=== PATIENT | female | born 1965 | race Caucasian/White ===

== ENCOUNTER → 2017-10-22 08:12 | Outpatient (CLI) | payer OTHER, SELFPAY ==
--- NOTE | 2017-10-22 08:15 | BI_ITS ---
MAMMOGRAPHY - BILATERAL SCREENING REASON FOR EXAM: Female, 52 years old. Routine annual screening examination. PERTINENT HISTORY: Non-contributory. TECHNIQUE: Digital bilateral breast mckayla (3D mammographic acquisition) in the CC and MLO projections. 2-D mediolateral oblique (MLO) and craniocaudad (CC) views of both breasts were obtained. CAD: Full Field Digital Mammography with Computer Added Detection was performed. COMPARISON: No comparison mammograms available at this time. If any prior films become available, an addendum to this report can be generated. FINDINGS: Breast Composition: The breasts are heterogeneously dense, which may obscure small masses. There are no dominant masses or suspicious calcifications. No other significant abnormalities are identified. BI/SCREENING MAMM (CAD), BILAT IMPRESSION: Negative screening mammogram. Yearly followup mammogram recommended. (A) ASSESSMENT CATEGORY: BIRADS Category 1: Negative. A letter regarding these results will be sent to the patient by the facility within 30 days. Approximately 10% of breast cancers are not detected by mammography. A normal mammogram should not delay biopsy of a clinically suspicious abnormality. [id number] Electronically Signed: Ronnell Perea MD at 13:57 EDT Tel [phone], Service support ,
== END ==
PROVIDERS: Family Provider Family Medicine; PCP Family Medicine; Visit Provider Family Medicine
DX: Z12.31 Encounter for screening mammogram for malignant neoplasm of breast (principal)
CPT/HCPCS: 77063; 77067

== ENCOUNTER 2018-05-07 16:31 | Emergency (ER) | payer OTHER, SELFPAY ==
[2018-05-07 16:32] VITALS: BP 163/107; PULSE 127; RESP 20; TEMP 36.9; O2SAT 100; BMI 24.8
[2018-05-07] MEDS: LORazepam 1 MG Tablet PO (17:20)
[2018-05-07] MEDS: Metoclopramide 10 MG/2 ML Vial 5 MG IV (17:24)
[2018-05-07] MEDS: DiphenhydrAMINE 50 MG/ML Syringe 25 MG IV (17:25)
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
[2018-05-07 18:05] VITALS: BP 143/104; PULSE 90; RESP 15; O2SAT 98
--- NOTE | 2018-05-07 19:23 | ED.DEP ---
ED Disposition - Plan for ED Patient: Chief Complaint: Anxiety Instructions: ED Panic Attack Prescriptions: hydrOXYzine pamoate capsule [Vistaril] 25 mg PO TID PRN PRN #20 capsule PRN Reason: Anxiety Referrals: Moisés Gomez DO [Primary Care Provider] -
[2018-05-07] MEDS: Ketorolac 30 MG/ML Syringe IV (19:27)
[2018-05-07 19:33] VITALS: BP 164/102; PULSE 100; RESP 15; O2SAT 98
== END 2018-05-07 19:34 | disposition home or self-care (01) ==
LOC: ED 16:59
PROVIDERS: Emergency Provider Emergency Medicine; Family Provider Family Medicine; PCP Family Medicine
DX: F41.9 Anxiety disorder, unspecified (principal); G43.909 Migraine, unspecified, not intractable, without status migrainosus; I10 Essential (primary) hypertension
CPT/HCPCS: 99284; A4216

== ENCOUNTER 2018-08-14 06:38 | Day surgery (SDC) | payer OTHER, SELFPAY ==
[2018-08-14 07:15] VITALS: BP 174/89; PULSE 105; RESP 18; TEMP 37.1; O2SAT 100; BMI 24.1
--- NOTE | 2018-08-14 07:44 | HP.PCM_ITS ---
History of Present Illness Date of Admission: 08/14/18 The patient is a 53 year old F present for screening for colon cancer. denies previous colonoscopy, +BM daily or everyother day mostly, occ. Q 3days, no blood, denies abd pain/n/v. denies immediate FH of colon cancer- 1st cousin on mothers side dx at age 55. Past Medical/Surgical History - Planned Operation Planned Operative Procedure/s: cscope open access Date of Operative Procedure: 08/14/18 Permit Signed: No S.O.S: No Is This Patient Having a Total Joint: No - Previous Hospitalizations/Surgeries HX Hospitalizations: No HX of Surgeries: appendectomy. hysterectomy. gallbladder. kidney stones. 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 Hx Heart Attack: No Hx Congestive Heart Failure: No Hx Rheumatic Fever: No Hx Hypertension: Yes - controlled with med Hx Internal Defibrillator: No Hx Pacemaker: No Hx Cardiac Catheterization: No Hx Cardiac Surgery/Stents/Etc.: No Hx Stress Test: Yes - stress echo and echo 2009 HX Edema: No Hx Pain in Legs when Walking/Leg Cramps: Yes - d/t back pain - Respiratory Chronic Cough: No HX of Shortness of Breath: Yes - sob with 2 flights of stairs at times Hoarseness: No Hx Chronic Obstructive Pulmonary Disease (COPD): No Hx Asthma: No Hx Emphysema: No Hx Sleep Apnea: No Hx Oxygen Use at Home: No Hx Respiratory Tract Infection/Cold (presently): No Do You Snore Loudly (louder than talking or can be heard): No Do You Often Feel Tired/ Fatigued/ Sleepy Dring Daytime?: No Has Anyone Observed You Stop Breathing During Sleep?: No Result (for STOP score): Negative Hx Smoking: Yes - quit 12 yrs ago/ 1/2 ppd for 8-10 yrs Smoking Status: Former smoker - Gastrointestinal Hx Gastroesophageal Reflux: No - occ heartburn Hx Gastrointestinal Disorders: No Hx Gastrointestinal Bleed: No Hx Ulcer: No Hx Hiatal Hernia: No Difficulty Chewing/Swallowing: No Recent Onset of Swallowing Problems: No Special diet followed at home: No Hx Unplanned Weight Loss of 20#: No HX Unplanned Weight Gain of 20#: No - Neurological Hx Seizures: No HX Syncope/Blackout Spells/Unconsciousness: Yes - syncope prior to bp pill Hx CVA/Stroke: No Hx Transient Ischemic Attacks (TIA): No Hx Multiple Sclerosis: No Hx Parkinson's Disease: No Hx Head/Neck Injury: No Hx Headaches: Yes Hx Back Injury/Pain: Yes - lumbar laminectomy/continues with pain Recent Onset of Speech Difficulty: No Restless Legs: Yes Does patient have nerve stimulator: No Patient instructed to have device shut off: No Rep notified?: No - Blood Disorder Hx Leukemia: No Bleeding Tendencies: No - . Hx Deep Vein Thrombosis: No Hx High Cholesterol: No Blood Transmitted Disease: No Hx Hepatitis: No Hx Cirrhosis: No Hx Anemia: No Hx Blood Disorders: No - Reproduction Is Patient Lactating: No Hx Hysterectomy: Yes Hx Tubal Ligation: No Are You Post Menopause: No - Genitourinary Hx Renal Disease: No - Musculoskeletal Hx Arthritis: Yes - back Hx Rheumatoid Arthritis: No Hx Gout: No Recent Onset of an Orthopedic Problem: No - Endocrine Hx Diabetes: No Thyroid Disease: No Hx Steroid Therapy: No - Psycho/Social Hx Substance Use: No Hx Alcohol Use: Yes - occ Hx Anxiety: Yes - prn med Hx Depression: No Mental Illness: No Hx Dementia: No - Miscellaneous Hx Cancer: No Recent Exposure to Contagious Disease: No Active MRSA: No Hx of C-Diff: No Any Loose Teeth: No Allergies Penicillins Allergy (Verified 08/14/18 07:15) Rash - Discharge Is Pt Admitted From a Care Home, or a Correction: No Who Could Help: family After D/C, Where Do you Plan to Go: Return Home - Physical Exam General: Alert, Oriented x3, Cooperative, No apparent distress HEENT: Atraumatic Lungs: Normal air movement Cardiovascular: Regular rate Abdomen: Soft, Non Tender, Non-Distended Extremities: No clubbing, No cyanosis, No edema Neurological: Cranial nerves II-XII grossly intact Psych/Mental Status: Normal Affect Vital Signs Temp Pulse Resp BP Pulse Ox 98.8 F 105 H 18 174/89 H 100 08/14/18 07:15 08/14/18 07:15 08/14/18 07:15 08/14/18 07:15 08/14/18 07:15 Oxygen Delivery Method Room Air Weight: 136 lb 7.458 oz Body Mass Index (BMI) 24.1 Assessment/Plan 53 y/o F for screening for colon cancer Surgery Risks - Colonoscopy I discussed with the patient the risks of the procedure: Yes Risks Include but are not Limited To: Risks include but are not limited to: Bleeding, perforation requiring further surgery, inability to complete colonoscopy requiring barium enema. Pt and had no further questions.
[2018-08-14 08:31] VITALS: BP 110/77; BP 174/89; PULSE 78; RESP 16; TEMP 36.9; O2SAT 97
--- NOTE | 2018-08-14 08:32 | OP.ENDO_ITS ---
Patient Name: Anjana Rubi Procedure Date: 08/14/2018 7:41 AM Date of : 1965 Age: 53 Procedure: Colonoscopy Indications: Screening for colorectal malignant neoplasm Providers: Dorothy Oakes MD Medicines: Monitored Anesthesia Care Patient Profile: This is a 53 year old female. Last Colonoscopy: none. The patient's first colonoscopy is today. Complications: No immediate complications. Procedure: Pre-Anesthesia Assessment: - Prior to the procedure, a History and Physical was performed, and patient medications and allergies were reviewed. The patient's tolerance of previous anesthesia was also reviewed. The risks and benefits of the procedure and the sedation options and risks were discussed with the patient. All questions were answered, and informed consent was obtained. Prior Anticoagulants: The patient has taken no previous anticoagulant or antiplatelet agents. ASA Grade Assessment: II - A patient with mild systemic disease. After reviewing the risks and benefits, the patient was deemed in satisfactory condition to undergo the procedure. After I obtained informed consent, the scope was passed under direct vision. Throughout the procedure, the patient's blood pressure, pulse, and oxygen saturations were monitored continuously. The Colonoscope was introduced through the anus and advanced to the cecum, identified by the appendiceal orifice, IC valve and transillumination. The colonoscopy was performed without difficulty. The patient tolerated the procedure well. The quality of the bowel preparation was good. Scope In: 8:02:48 AM Scope Withdrawal Time 0 hours 10 minutes 54 seconds Scope Out: 8:27:16 AM Total Procedure Duration Time 0 hours 24 minutes 28 seconds Findings: The perianal and digital rectal examinations were normal. The entire examined colon appeared normal on direct and retroflexion views. Impression: - The entire examined colon is normal on direct and retroflexion views. - No specimens collected. Recommendation: - Discharge patient to home. - Resume previous diet. - Continue present medications. - Repeat colonoscopy in 10 years for screening purposes. Procedure Code(s): --- Professional --- G0121, Colorectal cancer screening; colonoscopy on individual not meeting criteria for high risk Diagnosis Code(s): --- Professional --- Z12.11, Encounter for screening for malignant neoplasm of colon CPT copyright 2017 [employer]. All rights reserved. The codes documented in this report are preliminary and upon hcc coders review may be revised to meet current compliance requirements. MD Dorothy Davis MD 08/14/2018 8:31:20 AM This report has been signed electronically. Number of Addenda: 0 Note Initiated On: 08/14/2018 7:41 AM
[2018-08-14 08:35] VITALS: BP 110/78; BP 174/89; PULSE 78; RESP 16; O2SAT 97
[2018-08-14 08:40] VITALS: BP 113/83; BP 174/89; PULSE 75; RESP 16; O2SAT 99
[2018-08-14 08:45] VITALS: BP 117/81; BP 174/89; PULSE 72; RESP 16; TEMP 36.8; O2SAT 97
[2018-08-14 08:56] VITALS: BP 174/89
== END 2018-08-14 09:17 | disposition home or self-care (01) ==
LOC: EN 06:39 → AC 06:40
PROVIDERS: Family Provider Family Medicine; PCP Family Medicine; Referring Provider Surgery; Visit Provider Surgery
PROC: 0DJD8ZZ Inspection of Lower Intestinal Tract, Via Natural or Artificial Opening Endoscopic (ICD-10-PCS; CPT 45378; principal; 2018-08-14 07:55)
DX: Z12.11 Encounter for screening for malignant neoplasm of colon (principal); I10 Essential (primary) hypertension; Z87.891 Personal history of nicotine dependence
CPT/HCPCS: 45378; J7120; J2405

== ENCOUNTER 2018-11-14 11:24 | Emergency (ER) | payer OTHER, SELFPAY ==
[2018-11-14 11:24] VITALS: BP 158/84; PULSE 105; RESP 16; TEMP 36.9; O2SAT 98; BMI 30.4
[2018-11-14 11:27] VITALS: O2SAT 98
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
[2018-11-14] MEDS: 0.9% Normal Saline 1,000 ML 1000 ML IV (11:49)
[2018-11-14] MEDS: Morphine 4 MG/ML Syringe IV (11:49)
[2018-11-14] MEDS: Ondansetron 4 MG/2 ML Vial IV (11:49)
[2018-11-14 12:07] LABS: Absolute Lymphocyte Count 1.66 X10^3/ul (0.83-4.51); Absolute Neutrophil Count 4.6 X10^3/uL (2.0-7.7); Basophil# 0.03 X10^3/uL; Basophil% 0.4 % (0-1); Eosinophils% 1.4 % (0-5); Hematocrit 39.9 % (37-47); Hemoglobin 13.8 g/dl (12.0-15.0); Lymphocyte # 1.66 X10^3/ul (4.0); Lymphocyte % 23.6 % (19-41); Mean Corp Hgb Conc 34.6 g/gl (32-36); Mean Corpuscular Hgb 30.7 pg (27.0-32.0); Mean Corpuscular Volume 88.7 fL (81-99); Mean Platelet Vol. 9.3 fl (6.2-12.0); Monocyte# 0.64 X10^3/uL; Monocyte% 9.1 % (0-10); Neutrophil # 4.57 X10^3/uL (2.7-7.7); Neutrophil % 65.2 % (47-70); Platelet Count 248 K/mm3 (150-450); RBC Distribution Width CV 12.3 % (11.6-14.6); RBC Distribution Width SD 39.2 fl (35.1-43.9)
[2018-11-14 12:14] LABS: POSITIVE COUNT NO; POSITIVE DIFFERENTIAL NO; POSITIVE MORPHOLOGY NO
[2018-11-14 12:23] LABS: ALB/GLOB Ratio 1.1 RATIO (0.9-2.4); AST(SGOT) 25 U/L (15-37); Alanine Aminotransfer ALT/SGPT 21 U/L (13-56); Albumin, Serum 3.8 g/dL (3.2-5.0); Alkaline Phosphatase 57 U/L (45-117); Anion Gap 10 (5-15); BUN 15 mg/dL (7-18); BUN/Creat Ratio 20.7 RATIO (10-20); Calcium,Total 9.4 mg/dL (8.5-10.1); Chloride 105 mmol/L (98-107); Creatinine, Serum 0.73 mg/dL (0.55-1.02); EST Glomerular Filtration Rate 89 mL/min (>60); Est Glom Filt Rate - Afr Amer 108 mL/min (>60); Estimated Creatinine Clearance 73.72 ml/min; Globulin 3.4 g/dL (2.2-4.2); Glucose 108 mg/dL (74-106); Potassium 3.4 mmol/L (3.5-5.1); Protein, Total 7.2 g/dL (6.4-8.2); Sodium Level 140 mmol/L (136-145)
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
[2018-11-14 13:24] VITALS: BP 133/78; PULSE 77; RESP 16; O2SAT 100
[2018-11-14] MEDS: HYDROcodone Bitartrate/Apap 5/325 Tablet PO (13:51)
== END 2018-11-14 13:54 | disposition home or self-care (01) ==
LOC: ED 12:00
PROVIDERS: Emergency Provider Emergency Medicine; Family Provider Family Medicine; PCP Family Medicine
DX: S16.1XXA Strain of muscle, fascia and tendon at neck level, initial encounter (principal); S06.0X0A Concussion without loss of consciousness, initial encounter; S20.219A Contusion of unspecified front wall of thorax, initial encounter; V43.52XA Car driver injured in collision with other type car in traffic accident, initial encounter; Y92.410 Unspecified street and highway as the place of occurrence of the external cause; N13.2 Hydronephrosis with renal and ureteral calculous obstruction; K76.0 Fatty (change of) liver, not elsewhere classified; I10 Essential (primary) hypertension
CPT/HCPCS: 70450; 71260; 72125; 74177; 80053; 85025; 96361; 96374; 96375; 99285; J7030; Q9967; A4216; J2405

== ENCOUNTER 2019-01-05 11:51 | Observation (INO) | payer OTHER, SELFPAY ==
[2019-01-05] VITALS (10 sets, daily range): BP systolic 110–150; BP diastolic 68–96; PULSE 63–103; RESP 16–18; TEMP 36–37.1; O2SAT 94–100; BMI 24.2; BMI 25.1
--- NOTE | 2019-01-05 12:06 | CT_ITS ---
STUDY: CT ABDOMEN AND PELVIS WITHOUT CONTRAST REASON FOR EXAM: Female, 53 years old. Right flank pain. RADIATION DOSAGE (If Supplied By Facility): CTDIvol = ( 6.90 ) mGy, DLP = ( 339.73 ) mGycm TECHNIQUE: Transaxial images were obtained from the dome of the diaphragm to the symphysis pubis without oral contrast, and without intravenous contrast. Sagittal and coronal images were reconstructed. Individualized dose optimization techniques were used for this CT. COMPARISON: 11/14/2018 FINDINGS: The visualized lung bases are unremarkable. The visualized portions of the heart are within normal limits. Normal liver. There are surgical clips in the gallbladder fossa consistent with a prior cholecystectomy. Normal spleen. Normal pancreas. Normal bilateral adrenal glands. Moderate to severe right hydronephrosis with a large stone at the right UPJ measuring 1 x 0.6 cm. There is a small amount of right perinephric fat straightening and edema. Stable small nonobstructing left lower pole nephroliths Normal visualized stomach. Normal small intestine. Normal colon. The appendix is visualized and appears normal. Normal abdominal aorta. Normal inferior vena cava. Normal retroperitoneum. Normal urinary bladder. Normal abdominal wall. There are diffuse degenerative changes of the visualized lumbar spine. CT/Abdomen/Pelvis without Cont IMPRESSION: Moderate to severe right hydronephrosis with a stone at the right UPJ. Nonobstructing left nephrolithiasis. Electronically Signed: Rainer Esteves DO at 13:01 EDT Tel , Service support ,
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
[2019-01-05] MEDS: Ondansetron 4 MG/2 ML Vial IV ×2 (12:29→14:03)
[2019-01-05] MEDS: Ketorolac 30 MG/ML Syringe IV (12:29)
[2019-01-05] MEDS: 0.9% Normal Saline 1,000 ML 250 ML IV (12:29)
[2019-01-05] MEDS: Morphine 4 MG/ML Syringe IV ×2 (12:29→14:03)
[2019-01-05 12:30] LABS: Bacteria 0 SEEN /hpf (None Seen); Mucous, Urine 0 SEEN /hpf (<or=2+); Red Blood Cells-Urine 0 SEEN /hpf (0-5); White Blood Cells 0 SEEN /hpf (0-5)
[2019-01-05 12:34] LABS: Absolute Lymphocyte Count 1.88 X10^3/uL (0.83-4.51); Absolute Neutrophil Count 4.7 X10^3/uL (2.0-7.7); Basophil# 0.06 X10^3/uL; Basophil% 0.8 % (0-1); Color, Urine Yellow (Yellow); Eosinophil# 0.07 X10^3/uL; Eosinophils% 0.9 % (0-5); Glucose, Dipstick Normal (Normal); Hematocrit 40.7 % (37-47); Hemoglobin 13.9 g/dL (12.0-15.0); Ketone-Dipstick Negative (Negative); Leukocyte Esterase-Dipstick Negative /ul (Negative); Lymphocyte # 1.88 X10^3/ul (4.0); Lymphocyte % 25.1 % (19-41); Mean Corp Hgb Conc 34.2 g/dL (32-36); Mean Corpuscular Hgb 30.8 pg (27.0-32.0); Mean Corpuscular Volume 90.2 fL (81-99); Mean Platelet Vol. 9.3 fl (6.2-12.0); Monocyte# 0.71 X10^3/uL; Monocyte% 9.5 % (0-10); NRBC Flagged by Analyzer 0 % (0-5); Neutrophil # 4.73 X10^3/uL (2.7-7.7); Neutrophil % 63.3 % (47-70); Nitrite-Dipstick Negative (Negative); Occult Blood-Urine 10 /ul (Negative); Platelet Count 293 K/mm3 (150-450); Protein-Dipstick 30 mg/dl (Negative); RBC Distribution Width CV 11.9 % (11.6-14.6); RBC Distribution Width SD 39.2 fl (35.1-43.9); Red Blood Count 4.51 M/mm3 (4.2-5.4); Specific Gravity, Urine 1.015 (1.002-1.030); Urine Bilirubin Dipstick Negative (Negative); Urine Clarity Clear (Clear); Urine Urobilinogen Normal (Normal); White Blood Count 7.5 K/mm3 (4.4-11.0)
[2019-01-05 12:40] LABS: Squamous Epithelial Cells - UA 0-5 SEEN /hpf (5-10)
[2019-01-05 13:13] LABS: Anion Gap 5 (5-15); BUN 15 mg/dL (7-18); BUN/Creat Ratio 21.6 RATIO (10-20); Calcium,Total 9.4 mg/dL (8.5-10.1); Chloride 107 mmol/L (98-107); Creatinine, Serum 0.69 mg/dL (0.55-1.02); EST Glomerular Filtration Rate 94 mL/min (>60); Est Glom Filt Rate - Afr Amer 114 mL/min (>60); Glucose 113 mg/dL (74-106); Potassium 3.3 mmol/L (3.5-5.1); Sodium Level 137 mmol/L (136-145)
--- NOTE | 2019-01-05 15:16 | EKG12_ITS ---
Test Reason : PREOP Blood Pressure : / mmHG Vent. Rate : 077 BPM Atrial Rate : 077 BPM P-R Int : 170 ms QRS Dur : 066 ms QT Int : 378 ms P-R-T Axes : 049 -08 016 degrees QTc Int : 427 ms Normal sinus rhythm Septal infarct , age undetermined Abnormal ECG No previous ECGs available Confirmed by EAN WILKINSON, DIANE ([id number]), web editor MARELY SANCHEZ ([id number]) on 01/08/2019 4:16:36 PM Referred By: Scott Davey Confirmed By:DIANE MCKOY MD
--- NOTE | 2019-01-05 15:21 | PCM.HP.BLA ---
Problem List (1) Right kidney stone Status: Acute History and Physical Date of Admission: 01/05/19 53-year-old female who presented with a large right obstructing UPJ stone with significant hydronephrosis intractable pain and nausea. She was admitted to the hospital today because of the intractable pain will taken to surgery today for stent. Allergies: Penicillin MEDICATIONS: see list. Notes: Has not had the pneumonia vaccine PSH: None NON- PSH: Appendectomy Back Surgery (Unspecified) Cholecystectomy Hysterectomy-Abdominal PMH: Dysuria (Dysuria) Hematuria, unspecified (Hematuria, Unspecified) Nocturia (Nocturia) Personal history of urinary calculi (History of Urinary Calculus) NON- PMH: Migraine, unsp, not intractable, without status migrainosus (Migraine Unspec) Unspecified osteoarthritis, unspecified site (Localz Osteoarth Unsp) Immunizations: None FAMILY HISTORY: High Blood Pressure - Runs in Family SOCIAL HISTORY: Marital Status: Patient does not smoke anymore. Does not use smokeless tobacco. Social Drinker. Does not use drugs. Drinks 1 caffeinated drink per day. Has not had a blood transfusion. REVIEW OF SYSTEMS: Constitutional: Patient denies fever, chills, weight gain, and weight loss. Eyes: Patient reports blurry vision. Patient denies cataracts and glaucoma. Ears, Nose, Mouth, Throat: Patient denies hearing loss, sinus infections, and sleep apnea. Cardiovascular: Patient reports irregular heartbeat. Patient denies chest pains, swollen ankles, and pacemaker/defib. Respiratory: Patient denies shortness of breath, wheezing, oxygen, and cpap machine. Gastrointestinal: Patient reports abdominal pain and constipation. Patient denies diarrhea, nausea, and vomiting. Genitourinary: Patient reports frequent urination, get up at night to void, blood in the urine, and history of stones. Patient denies urinary retention, leakage of urine, painful urination, frequent uti's, difficulty starting stream, weak stream/scanty, and bedwetting. Musculoskeletal: Patient reports sore muscles and back pain. Patient denies gout. Integumentary/Skin: Patient reports rash. Patient denies skin cancer and chronic itching. Neurological: Patient denies falling/unsteady, paralysis, and stroke/tia. Hematologic/Lymphatic: Patient denies abnormal bleeding, blood transfusion, swollen lymph nodes, deep venous thrombosis, and pulmonary embolism. VITAL SIGNS: Weight: 150 lbs / 68 kgs BP: 142/90 mmHg Height/Length: 5' 3 / 160 cm BMI: 26.6 MULTI-SYSTEM PHYSICAL EXAMINATION: Constitutional: Well-nourished. No physical deformities. Normally developed. Good grooming. Neck: Neck symmetrical, not swollen. Normal tracheal position. Respiratory: No labored breathing, no use of accessory muscles. Cardiovascular: Normal temperature, normal extremity pulses, no swelling, no varicosities. Lymphatic: No enlargement of neck, axillae, groin. Skin: No paleness, no jaundice, no cyanosis. No lesion, no ulcer, no rash. Neurologic / Psychiatric: Oriented to time, oriented to place, oriented to person. No depression, no anxiety, no agitation. Gastrointestinal: No mass, no tenderness, no rigidity, non obese abdomen. Eyes: Normal conjunctivae. Normal eyelids. Ears, Nose, Mouth, and Throat: Left ear no scars, no lesions, no masses. Right ear no scars, no lesions, no masses. Nose no scars, no lesions, no masses. Normal hearing. Normal lips. Musculoskeletal: Normal gait and station of head and neck. PAST DATA REVIEWED: Source Of History: Patient Records Review: Previous Patient Records Urine Test Review: Urinalysis X-Ray Review: C.T. Abdomen/Pelvis: Reviewed Films. Reviewed Report. Discussed With Patient. PROCEDURES: Labs reviewed. ASSESSMENT: 1 : Kidney Stone - with right hydronephrosis and obstruction, plan for stent placement now, cannot due general anesthesia b/c ate breakfast at 9 am. PLAN: Document Letter(s): Created for Patient: Clinical Summary Plan for cystoscopy right cystoscopy and right stent placement retrograde pyelogram then will discharge home once clinically stable we will then plan for interim shockwave lithotripsy of the stone this coming week when the shockwave lithotripsy machine is available.
--- NOTE | 2019-01-05 15:26 | DCINST_ITS ---
Discharge Diet: Light diet - advance as tolerated Discharge Activity: Return to Normal Activity, May not drive while taking narcotic pain medications., May Shower Call your doctor if your incision/area has: Continuous Slow Oozing Call your doctor if you observe: Fever of 101 or Higher, Uncontrolled pain Suture Line Care: Avoid Pulling/Pushing, Avoid Pinching/Bending Allergies/Adverse Reactions: Allergies Penicillins Allergy (Verified 01/05/19 11:51) Rash Medications to take at Discharge Zolpidem Tartrate [Ambien] 10 mg PO QHS 10/08/17 Irbesartan/Hydrochlorothiazide [Irbesartan-Hctz 150-12.5 mg Tb] 1 each PO DAILY 08/12/18 Lorazepam [Ativan] 0.5 mg PO DAILY PRN 08/12/18 Escitalopram Oxalate [Lexapro] 10 mg PO DAILY MDD . 01/05/19 Primary Care Physician: Moisés Gomez DO [Primary Care Provider] - Test Results: Test results from this visit will be discussed in further detail at your follow- up appointment, if applicable. Please Follow Up With: Scott Davey MD When: please call to make an appointment- set up for surgery.
--- NOTE | 2019-01-05 15:31 | NURSING ---
report called Radha MCLAUGHLIN
[2019-01-05] MEDS: Ciprofloxacin 400 MG/200 ML BAG 200 MG IV (15:43)
[2019-01-05] MEDS: Lidocaine Jelly 2% 20 ML Syringe (URO-JET) 20 APPLIC (15:46)
--- NOTE | 2019-01-05 15:54 | PCM.OPRPT ---
Problem List (1) Right kidney stone Status: Acute Report of Operation Date of Procedure: 01/05/19 Pre-Operative Diagnosis: Right obstructing ureteral calculus at the right UPJ Post-Operative Diagnosis: Same Surgery/Procedure Performed:: Cystoscopy retrograde pyelogram interpretation fluoroscopic images and placement of a right stent Description of Surgical Findings:: 53-year-old female presented to the emergency room with right severe flank pain hydronephrotic kidney with a stone in the right UPJ causing obstruction and hydronephrosis patient had had breakfast today with proceed with stent placement since we can have anesthesia given her dietary status, she was taken back to the operating room after smooth induction of a MAC local she was placed in dorsolithotomy position the urethra and vaginal area are prepped and draped in usual sterile fashion. I cannulated the right ureteral orifice with a Glidewire advanced a wire up into the kidney past the stone did a retrograde pyelogram stone was radiolucent I could not see it on KUB therefore she will need ureteroscopy. Once this the stone was located on a retrograde pyelogram that I placed the wire up into the right kidney once the wire is in place then over the wire I advanced a stent and the stent was placed in the correct position, the proximal coil was in the kidney and the distal coil in the bladder then drained the bladder the bladder was normal nice and smooth no tumors or stones seen within the bladder trigone is normal left and right ureter orifice normal no tumors stone within the bladder mucosa and all the mucosa was normal I drained the bladder stent was in place on the right side patient anesthetic is currently being reversed plan to bring her back later this week for ureteroscopy and laser lithotripsy. Type of Anesthesia:: Local MAC Drains: right stent. - Admit VTE Documentation VTE Present on Admission: No VTE Mechan Device Prophylaxis: SCD's
[2019-01-05] MEDS: Phenazopyridine 95 MG Tablet 190 MG PO ×2 (17:24→22:01)
[2019-01-05] MEDS: 0.9% Normal Saline 1,000 ML 125 ML IV (17:24)
[2019-01-05] MEDS: oxyCODONE 5 MG Tablet PO ×2 (18:47→23:02)
[2019-01-05] MEDS: Acetaminophen 325 MG Tablet 650 MG PO (18:48)
[2019-01-05] MEDS: Famotidine 20 MG Tablet PO (22:01)
[2019-01-06] MEDS: 0.9% Normal Saline 1,000 ML 125 ML IV (00:22)
[2019-01-06] MEDS: oxyCODONE 5 MG Tablet PO (04:03)
[2019-01-06 04:06] VITALS: BP 115/78; PULSE 50; RESP 16; TEMP 36.6; O2SAT 99
[2019-01-06 05:55] LABS: Absolute Lymphocyte Count 2.34 X10^3/uL (0.83-4.51); Absolute Neutrophil Count 3.3 X10^3/uL (2.0-7.7); Basophil# 0.04 X10^3/uL; Basophil% 0.6 % (0-1); Eosinophils% 1.6 % (0-5); Hematocrit 34.9 % (37-47); Hemoglobin 11.5 g/dL (12.0-15.0); Lymphocyte # 2.34 X10^3/ul (4.0); Lymphocyte % 37.4 % (19-41); Mean Corpuscular Hgb 30.6 pg (27.0-32.0); Mean Corpuscular Volume 92.8 fL (81-99); Mean Platelet Vol. 9.7 fl (6.2-12.0); Monocyte# 0.49 X10^3/uL; Monocyte% 7.8 % (0-10); NRBC Flagged by Analyzer 0 % (0-5); Neutrophil # 3.28 X10^3/uL (2.7-7.7); Neutrophil % 52.4 % (47-70); Platelet Count 200 K/mm3 (150-450); RBC Distribution Width CV 12.2 % (11.6-14.6); RBC Distribution Width SD 41.6 fl (35.1-43.9); Red Blood Count 3.76 M/mm3 (4.2-5.4); White Blood Count 6.3 K/mm3 (4.4-11.0)
[2019-01-06 06:10] LABS: Anion Gap 8 (5-15); BUN 11 mg/dL (7-18); BUN/Creat Ratio 15.5 RATIO (10-20); Calcium,Total 8.4 mg/dL (8.5-10.1); Chloride 112 mmol/L (98-107); Creatinine, Serum 0.71 mg/dL (0.55-1.02); EST Glomerular Filtration Rate 92 mL/min (>60); Est Glom Filt Rate - Afr Amer 111 mL/min (>60); Glucose 98 mg/dL (74-106); Potassium 3.5 mmol/L (3.5-5.1); Sodium Level 145 mmol/L (136-145)
[2019-01-06] MEDS: Phenazopyridine 95 MG Tablet 190 MG PO (06:58)
[2019-01-06 09:21] VITALS: BP 118/73; PULSE 69; RESP 18; TEMP 37.1; O2SAT 95
== END 2019-01-06 09:40 | disposition home or self-care (01) ==
LOC: ED 13:47 → MS3 15:47
PROVIDERS: Admitting Provider Urology; Emergency Provider Emergency Medicine; Family Provider Family Medicine; PCP Family Medicine; Visit Provider Urology
PROC: (CPT 52332; principal; 2019-01-05 15:45)
DX: N13.2 Hydronephrosis with renal and ureteral calculous obstruction (principal); Z87.442 Personal history of urinary calculi; Z87.891 Personal history of nicotine dependence; M19.90 Unspecified osteoarthritis, unspecified site; Z79.899 Other long term (current) drug therapy; I10 Essential (primary) hypertension; G25.81 Restless legs syndrome; R94.31 Abnormal electrocardiogram [ECG] [EKG]
CPT/HCPCS: 00910; 52332; 36415; 74176; 76000; 80048; 81001; 85025; 93005; 96361; 96374; 96375; 96376; 99218; 99284; J7030; A4216; C1769; G0378; J0744; J2405

== ENCOUNTER 2019-01-08 11:04 | Day surgery (SDC) | payer OTHER, SELFPAY ==
[2019-01-05 15:26] VITALS: BMI 25.1
[2019-01-08 11:23] VITALS: BP 130/79; PULSE 79; RESP 16; TEMP 37.4; O2SAT 99; BMI 25.2
--- NOTE | 2019-01-08 13:08 | PCM.DC.URO ---
Discharge Diet: Light diet - advance as tolerated Call your doctor if your incision/area has: Continuous Slow Oozing, Sudden Increased Bleeding, Increased Pain/ Swelling, Increased Redness, Foul Smelling Discharge, Swelling at the incision site Call your doctor if you observe: Fever of 101 or Higher Suture Line Care: Avoid Pulling/Pushing, Avoid Pinching/Bending Allergies/Adverse Reactions: Allergies Penicillins Allergy (Verified 01/06/19 14:14) Rash Medications to take at Discharge Zolpidem Tartrate [Ambien] 10 mg PO QHS 10/08/17 Irbesartan/Hydrochlorothiazide [Irbesartan-Hctz 150-12.5 mg Tb] 1 each PO DAILY 08/12/18 Lorazepam [Ativan] 0.5 mg PO DAILY PRN 08/12/18 Ciprofloxacin [Cipro] 500 mg PO BID #6 tab 01/05/19 Escitalopram Oxalate [Lexapro] 10 mg PO DAILY MDD . 01/05/19 Hydrocodone/Acetaminophen [[place] 5-325 Tablet] 1 ea PO Q4H PRN PRN 7 Days #20 tab 01/05/19 Hydrocodone/Acetaminophen [[place] 5-325 Tablet] 1 ea PO Q6H PRN 7 Days #20 tab 01/08/19 The following prescriptions were given: Hydrocodone/Acetaminophen [[place] 5-325 Tablet] 1 ea PO Q6H PRN 7 Days #20 tab PRN Reason: Pain Prescription Printed Primary Care Physician: Moisés Gomez DO [Primary Care Provider] - Test Results: Test results from this visit will be discussed in further detail at your follow-up appointment, if applicable. Please Follow Up With: Scott Davey MD When: please call to make an appointment.
--- NOTE | 2019-01-08 13:49 | OP.PCM_ITS ---
Report of Operation Date of Procedure: 01/08/19 Pre-Operative Diagnosis: Right renal calculi status post stent Post-Operative Diagnosis: Same Surgery/Procedure Performed:: Cystoscopy, right retrograde pyelogram, interpretation fluoroscopic images, right ureteroscopy laser lithotripsy of stone and right stent placement Description of Surgical Findings:: 53-year-old female presented with obstructing stone in the right UPJ she underwent a cystoscopy and stent placement to alleviate the obstruction at that point. She now presents to the hospital for definitive treatment of the kidney stone with laser lithotripsy. 53-year-old female taken back to the procedure room operating room #3, she underwent general anesthesia with Dr. juan Avendano. She was placed in dorsolithotomy position. The urethra and vaginal area prepped and draped in usual sterile fashion. Went into the bladder with a 21 [place] rigid cystourethroscope. The urethra is normal the bladder is normal identify the stent coming from the right ureteral orifice. Grabbed the stent with a grasper and pulled out the meatus. Then through the stent advance a wire where it went up to the kidney and coiled. Left the wire in place and over the wire went in with a flexible 8 [place] Olympus ureteroscope was able to get up to the kidney quite easily. After engaging the stone the stone moved up into the kidney. I performed a retrograde pyelogram to identify the location of the stone. And then I inspected the kidney and found the stone in an upper pole calyx. We then performed laser lithotripsy and laser the stone little tiny pieces with a 270 ?m laser fiber settings were 1 J and 6 Hz up to 15 Hz once a stone was lasered a little tiny pieces that should all pass on her own and I worked my way down the ureter wire up on the right side and then over the wire advanced a stent is a 6 [place] by 24 cm stent the stent coiled in the kidney and bladder good position I then drained the bladder and then we trimmed the end of the stent string. String of the stent was left for easy extraction a few days. She will call the office for stent removal next week. Type of Anesthesia:: General Drains: stent right - Admit VTE Documentation VTE Present on Admission: No VTE Mechan Device Prophylaxis: SCD's
--- NOTE | 2019-01-08 13:55 | PCM.HP.BLA ---
History and Physical Date of Admission: 01/08/19 Problem List (1) Right kidney stone Status: Acute History and Physical Date of Admission: 01/05/19 53-year-old female who presented with a large right obstructing UPJ stone with significant hydronephrosis intractable pain and nausea. She was admitted to the hospital today because of the intractable pain will taken to surgery today for stent. Allergies: Penicillin MEDICATIONS: see list. Notes: Has not had the pneumonia vaccine PSH: None NON- PSH: Appendectomy Back Surgery (Unspecified) Cholecystectomy Hysterectomy-Abdominal PMH: Dysuria (Dysuria) Hematuria, unspecified (Hematuria, Unspecified) Nocturia (Nocturia) Personal history of urinary calculi (History of Urinary Calculus) NON- PMH: Migraine, unsp, not intractable, without status migrainosus (Migraine Unspec) Unspecified osteoarthritis, unspecified site (Localz Osteoarth Unsp) Immunizations: None FAMILY HISTORY: High Blood Pressure - Runs in Family SOCIAL HISTORY: Marital Status: Patient does not smoke anymore. Does not use smokeless tobacco. Social Drinker. Does not use drugs. Drinks 1 caffeinated drink per day. Has not had a blood transfusion. REVIEW OF SYSTEMS: Constitutional: Patient denies fever, chills, weight gain, and weight loss. Eyes: Patient reports blurry vision. Patient denies cataracts and glaucoma. Ears, Nose, Mouth, Throat: Patient denies hearing loss, sinus infections, and sleep apnea. Cardiovascular: Patient reports irregular heartbeat. Patient denies chest pains, swollen ankles, and pacemaker/defib. Respiratory: Patient denies shortness of breath, wheezing, oxygen, and cpap machine. Gastrointestinal: Patient reports abdominal pain and constipation. Patient denies diarrhea, nausea, and vomiting. Genitourinary: Patient reports frequent urination, get up at night to void, blood in the urine, and history of stones. Patient denies urinary retention, leakage of urine, painful urination, frequent uti's, difficulty starting stream, weak stream/scanty, and bedwetting. Musculoskeletal: Patient reports sore muscles and back pain. Patient denies gout. Integumentary/Skin: Patient reports rash. Patient denies skin cancer and chronic itching. Neurological: Patient denies falling/unsteady, paralysis, and stroke/tia. Hematologic/Lymphatic: Patient denies abnormal bleeding, blood transfusion, swollen lymph nodes, deep venous thrombosis, and pulmonary embolism. VITAL SIGNS: Weight: 150 lbs / 68 kgs BP: 142/90 mmHg Height/Length: 5' 3 / 160 cm BMI: 26.6 MULTI-SYSTEM PHYSICAL EXAMINATION: Constitutional: Well-nourished. No physical deformities. Normally developed. Good grooming. Neck: Neck symmetrical, not swollen. Normal tracheal position. Respiratory: No labored breathing, no use of accessory muscles. Cardiovascular: Normal temperature, normal extremity pulses, no swelling, no varicosities. Lymphatic: No enlargement of neck, axillae, groin. Skin: No paleness, no jaundice, no cyanosis. No lesion, no ulcer, no rash. Neurologic / Psychiatric: Oriented to time, oriented to place, oriented to person. No depression, no anxiety, no agitation. Gastrointestinal: No mass, no tenderness, no rigidity, non obese abdomen. Eyes: Normal conjunctivae. Normal eyelids. Ears, Nose, Mouth, and Throat: Left ear no scars, no lesions, no masses. Right ear no scars, no lesions, no masses. Nose no scars, no lesions, no masses. Normal hearing. Normal lips. Musculoskeletal: Normal gait and station of head and neck. PAST DATA REVIEWED: Source Of History: Patient Records Review: Previous Patient Records Urine Test Review: Urinalysis X-Ray Review: C.T. Abdomen/Pelvis: Reviewed Films. Reviewed Report. Discussed With Patient. PROCEDURES: Labs reviewed. ASSESSMENT: 1 : Kidney Stone - with right hydronephrosis and obstruction, plan for stent placement now, cannot due general anesthesia b/c ate breakfast at 9 am. PLAN: laser of right kidney stone today in OR
[2019-01-08 13:59] VITALS: BP 128/94; BP 130/79; PULSE 86; RESP 16; TEMP 36.7; O2SAT 98
[2019-01-08 14:00] VITALS: BP 130/79; BP 130/90; PULSE 82; RESP 16; O2SAT 97
[2019-01-08 14:15] VITALS: BP 130/79; BP 142/93; PULSE 85; RESP 16; O2SAT 98
[2019-01-08 14:28] VITALS: BP 128/77; BP 130/79; PULSE 83; RESP 16; TEMP 36.1; O2SAT 97
[2019-01-08] MEDS: oxyCODONE 5 MG Tablet PO (14:57)
[2019-01-08 16:37] VITALS: BP 130/79; BP 145/92; PULSE 79; RESP 18; TEMP 37.5; O2SAT 95
== END 2019-01-08 16:41 | disposition home or self-care (01) ==
LOC: SDC 11:04 → AC 11:05
PROVIDERS: Family Provider Family Medicine; PCP Family Medicine; Referring Provider Urology; Visit Provider Urology
PROC: 0TJ98ZZ Inspection of Ureter, Via Natural or Artificial Opening Endoscopic (ICD-10-PCS; CPT 52352; principal; 2019-01-08 13:05)
DX: N13.2 Hydronephrosis with renal and ureteral calculous obstruction (principal); I10 Essential (primary) hypertension; Z88.0 Allergy status to penicillin; Z87.442 Personal history of urinary calculi; Z87.891 Personal history of nicotine dependence
CPT/HCPCS: 00873; 52356; 76000; J7120; C2617; J2405

== ENCOUNTER → 2019-03-03 14:52 | Outpatient (CLI) | payer OTHER, SELFPAY ==
[2019-03-03 15:31] LABS: Anion Gap 5 (5-15); BUN 16 mg/dL (7-18); BUN/Creat Ratio 20.9 RATIO (10-20); Calcium,Total 9.1 mg/dL (8.5-10.1); Chloride 107 mmol/L (98-107); Creatinine, Serum 0.76 mg/dL (0.55-1.02); EST Glomerular Filtration Rate 84 mL/min (>60); Est Glom Filt Rate - Afr Amer 102 mL/min (>60); Glucose 114 mg/dL (74-106); Phosphorus 2.4 mg/dL (2.5-4.9); Potassium 3.6 mmol/L (3.5-5.1); Sodium Level 137 mmol/L (136-145)
[2019-03-04 10:14] LABS: PTHIN 69.2 pg/mL (18.4-80.1)
== END ==
PROVIDERS: Family Provider Family Medicine; PCP Family Medicine; Referring Provider Urology; Visit Provider Urology
DX: N20.0 Calculus of kidney (principal); R30.0 Dysuria
CPT/HCPCS: 36415; 80048; 83970; 84100; 87086; 87088

== ENCOUNTER → 2020-08-17 10:37 | Outpatient (CLI) | payer OTHER, SELFPAY ==
--- NOTE | 2020-08-17 10:41 | BI_ITS ---
MAMMOGRAPHY - BILATERAL SCREENING REASON FOR EXAM: Female, 55 years old. Routine annual screening examination. PERTINENT HISTORY: Non-contributory. TECHNIQUE: Digital bilateral breast luis (3D mammographic acquisition) in the CC and MLO projections. 2-D mediolateral oblique (MLO) and craniocaudad (CC) views of both breasts were obtained. CAD: Full Field Digital Mammography with Computer Added Detection was performed. COMPARISON: Comparison is made with prior study dated 10/22/2017. FINDINGS: Breast Composition: The breasts are heterogeneously dense, which may obscure small masses. There are no dominant masses or suspicious calcifications. No other significant abnormalities are identified. There has been no significant change since the prior study. BI/SCRN MAMM (CAD)W/LUIS BILAT IMPRESSION: Stable bilateral screening mammogram. Yearly follow-up mammogram recommended. (A) ASSESSMENT CATEGORY: BIRADS Category 1: Negative. A letter regarding these results will be sent to the patient by the facility within 30 days. Approximately 10% of breast cancers are not detected by mammography. A normal mammogram should not delay biopsy of a clinically suspicious abnormality. [id number] Electronically Signed: Ronnell Perea MD at 12:43 EST , Service support ,
== END ==
PROVIDERS: PCP Nurse Practitioner Primary Care; Referring Provider Student in an Organized Health Care Education/Training Program; Visit Provider Student in an Organized Health Care Education/Training Program
DX: Z12.31 Encounter for screening mammogram for malignant neoplasm of breast (principal)
CPT/HCPCS: 77063; 77067

== ENCOUNTER → 2020-09-02 12:16 | Outpatient (CLI) | payer OTHER, SELFPAY ==
--- NOTE | 2020-09-02 12:22 | MRI_ITS ---
STUDY: MRI BRAIN WITH AND WITHOUT CONTRAST REASON FOR EXAM: Female, 55 years old. DYSTONIA TECHNIQUE: Standardized multiplanar fat and water weighted pulse sequences were obtained. IV 13cc dotarem was administered for the contrast portion of the examination. COMPARISON: CT of the head dated 11/15/2019 FINDINGS: Normal size of the ventricles and extra-axial spaces for the patient''s age. Normal white matter tracts of the supratentorial brain. Normal bilateral basal ganglia. Normal thalami. There is no extra-axial fluid accumulation. Normal flow voids within the major intracranial circulation suggesting patency by spin echo criteria. Normal venous enhancement. There is no enhancing intra-axial or extra-axial abnormality. Normal sella turcica, pituitary gland, infundibular stalk, optic chiasm and hypothalamus. Normal tectal plate and pineal gland. Normal midbrain, mateus and medulla. Normal cerebellum. MRI/Brain W/WO Contrast IMPRESSION: Unremarkable unenhanced and enhanced MRI of the brain. Electronically Signed: Junior Kenney MD at 10:58 EDT Tel , Service support ,
== END ==
PROVIDERS: PCP Nurse Practitioner Primary Care; Referring Provider Psychiatry & Neurology Neurology; Visit Provider Psychiatry & Neurology Neurology
DX: G24.9 Dystonia, unspecified (principal)
CPT/HCPCS: 70553; A9575

== ENCOUNTER 2020-09-02 16:52 | Outpatient (RCR) | payer OTHER, SELFPAY ==
[2020-09-02] MEDS: COVID-19 VACC, MRNA(PFIZER)/PF 30 MCG/0.3 ML SYRINGE IM (14:21)
[2020-09-23] MEDS: COVID-19 VACC, MRNA(PFIZER)/PF 30 MCG/0.3 ML SYRINGE IM (13:46)
== END 2020-09-02 23:59 ==
LOC: IMMUN 16:52
PROVIDERS: PCP Nurse Practitioner Primary Care; Visit Provider Family Medicine
DX: Z23 Encounter for immunization (principal)
CPT/HCPCS: 0001A; 0002A; 91300

== ENCOUNTER → 2022-04-06 | Outpatient (CLI) | payer OTHER, SELFPAY | END | disposition home or self-care (01) | LOC: LABSPEC 16:38 | PROVIDERS: PCP Nurse Practitioner Primary Care; Visit Provider Urology | DX: N20.0 Calculus of kidney (principal) | CPT/HCPCS: 87086 ==

== ENCOUNTER → 2022-06-22 | Outpatient (CLI) | payer OTHER, SELFPAY ==
--- NOTE | 2022-06-22 12:45 | BI_ITS ---
MAMMOGRAPHY - BILATERAL SCREENING REASON FOR EXAM: Female, 57 years old. Routine annual screening examination. PERTINENT HISTORY: Non-contributory. TECHNIQUE: Digital bilateral breast luis (3D mammographic acquisition) in the CC and MLO projections. 2-D mediolateral oblique (MLO) and craniocaudad (CC) views of both breasts were obtained. CAD: Full Field Digital Mammography with Computer Added Detection was performed. COMPARISON: Comparison is made with prior study of 08/17/2020 and 10/22/2017. FINDINGS: Breast Composition: The breasts are heterogeneously dense, which may obscure small masses. There are no dominant masses or suspicious calcifications. No other significant abnormalities are identified. There has been no significant change since the prior study. BI/SCRN MAMM (CAD)W/LUIS BILAT IMPRESSION: Stable bilateral screening mammogram. Yearly follow-up mammogram recommended. (A) ASSESSMENT CATEGORY: BIRADS Category 1: Negative. A letter regarding these results will be sent to the patient by the facility within 30 days. Approximately 10% of breast cancers are not detected by mammography. A normal mammogram should not delay biopsy of a clinically suspicious abnormality. [id number] Electronically Signed: Ronnell Perea MD at 14:12 EST ,
== END | disposition home or self-care (01) ==
LOC: OPBI 12:43
PROVIDERS: PCP Nurse Practitioner Primary Care; Visit Provider Nurse Practitioner Primary Care
DX: Z12.31 Encounter for screening mammogram for malignant neoplasm of breast (principal)
CPT/HCPCS: 77063; 77067

== ENCOUNTER 2022-09-23 22:05 | Emergency (ER) | payer OTHER, SELFPAY ==
[2022-09-23 22:07] VITALS: BP 160/101; PULSE 111; RESP 18; TEMP 36.9; O2SAT 98
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
[2022-09-23] MEDS: Orphenadrine 60 MG/2 ML Ampul IM (23:47)
[2022-09-23] MEDS: LORazepam 1 MG Tablet PO (23:47)
[2022-09-23] MEDS: Metoclopramide 10 MG/2 ML Vial 5 MG IM (23:47)
[2022-09-23] MEDS: Ketorolac 30 MG/ML Syringe IM (23:47)
== END 2022-09-24 00:19 | disposition home or self-care (01) ==
PROVIDERS: Emergency Provider Emergency Medicine; PCP Nurse Practitioner Primary Care; Visit Provider Emergency Medicine
DX: Z04.1 Encounter for examination and observation following transport accident (principal); G43.909 Migraine, unspecified, not intractable, without status migrainosus; F41.0 Panic disorder [episodic paroxysmal anxiety]; Z87.891 Personal history of nicotine dependence; M54.50 Low back pain, unspecified; G89.29 Other chronic pain
CPT/HCPCS: 96372; 99283

== ENCOUNTER → 2023-06-27 | Outpatient (CLI) | payer OTHER, SELFPAY ==
--- NOTE | 2023-06-27 09:02 | BI_ITS ---
MAMMOGRAPHY - BILATERAL SCREENING REASON FOR EXAM: Female, 58 years old. Routine annual screening examination. PERTINENT HISTORY: Non-contributory. TECHNIQUE: Digital bilateral breast luis (3D mammographic acquisition) in the CC and MLO projections. 2-D mediolateral oblique (MLO) and craniocaudad (CC) views of both breasts were obtained. CAD: Full Field Digital Mammography with Computer Added Detection was performed. COMPARISON: Comparison is made with prior study dated June 22, 2022 and August 17, 2020. FINDINGS: Breast Composition: The breasts are heterogeneously dense, which may obscure small masses. There are no dominant masses or suspicious calcifications. No other significant abnormalities are identified. There has been no significant change since the prior study. BI/SCRN MAMM (CAD)W/LUIS BILAT IMPRESSION: Stable bilateral screening mammogram. Yearly follow-up mammogram recommended. (A) ASSESSMENT CATEGORY: BIRADS Category 1: Negative. A letter regarding these results will be sent to the patient by the facility within 30 days. Approximately 10% of breast cancers are not detected by mammography. A normal mammogram should not delay biopsy of a clinically suspicious abnormality. [id number] Electronically Signed: Ronnell Perea MD at 9:54 EST ,
--- OUTSIDE RECORDS SUMMARY | 2023-06-27 09:41 | XMS RPT_ITS | CCD ---
Author Name Unknown Address [email or web address] [place] [address] Organization [facility] Care Team Providers Care Metallographic Technician Name Role Phone TAMRA ZHU, RAND Primary Care Physician [phone] TAMRA SUPERVISOR [employer] PRESS FEEDER, RAND Primary Care Unavailabl e BALTES SUPERVISOR [employer]-J[employer] PR[employer] FEEDER, RAND Attending Unavailabl e BALTES SUPERVISOR [employer]-J[employer] PRESS FEEDER, RAND Attending Unavailabl e BALTES SUPERVISOR [employer]-J[employer] PRESS FEEDER, RAND Primary Care Unavailabl e BALTES SUPERVISOR [employer]-J[employer] PRESS FEEDER, RAND Attending Unavailabl e BALTES SUPERVISOR [employer]-JOB PRESS FEEDER, RAND Primary Care Unavailabl e BALTES SUPERVISOR [employer] PRESS FEEDER, RAND Attending Unavailabl e BALTES SUPERVISOR [employer]AT[employer]-J[employer] PRESS FEEDER, RAND Primary Care Unavailabl e BALTES SUPERVISOR [employer]-J[employer] PRESS FEEDER, RAND Primary Care Unavailabl e BALTES SUPERVISOR [employer] PRESS FEEDER, RAND Attending Unavailabl e Allergies Allergy Classification Reported Allergen(s) Allergy Type Date of Onset Reaction(s) Facility (6 sources) busPIRone; Translations: [buspirone] Drug Allergy dystonia [facility] (6 sources) Penicillin; Translations: [penicillin] Drug Allergy Rash [facility] (6 sources) seasonal enviromental Allergy to substance itchy throat/eyes, watery eyes [facility] Medications Current Medications Medication Drug Class(es) Dates Sig (Normalized) Sig (Original) acetaminophen 500 mg oral tablet (6 sources) Start: 9 acetaminophen 500 mg oral tablet Dose : 1,000 mg = 2 tab(s), Oral, q6hr, PRN for pain, 0 Refill(s) Start Date: 01/28/19 Status: Ordered acetaminophen 325 mg / HYDROcodone bitartrate 5 mg oral tablet (1 source) Opioid Agonist Start: 2 End: 2 take 1 tablet by mouth three times daily as needed for pain [place] 325- 5 mg oral tablet Dose = 1 tab(s), Oral, TID, PRN for pain, X 3 day(s), # 9 tab(s), 0 Refill(s), [facility]: [facility] #[id number], Nephrolithiasis, 160, cm, 03/28/22 10:03:00 EDT, Height, 68.5 Start Date: 03/28/22 Stop Date: 03/31/22 Status: Ordered Biotin (1 source) Start: 1 biotin Oral, qDay, daily, 0 Refill(s) Start Date: 08/13/20 Status: Ordered Cranberry preparation (1 source) Non-Standardized Food Allergenic Extract, Non-Standardized Plant Allergenic Extract Start: 3 take 1 capsule by mouth once daily cranberry oral capsule Dose = 1 cap(s), Oral, Daily, 15,000 mg, 0 Refill(s) Start Date: 05/15/23 Status: Ordered escitalopram 10 mg oral tablet (6 sources) Serotonin Reuptake Inhibitor Start: 2 End: 4 escitalopram 10 mg oral tablet Dose : 10 mg = 1 tab(s), Oral, qDay, # 90 tab(s), 3 Refill(s), [facility]: [facility] #[id number], Chronic anxiety, 157.5, cm, 03/13/23 10:34:00 EDT, Height, kg, 03/13/23 10:34:00 EDT, Dosing Weight Start Date: 03/13/23 Stop Date: 03/07/24 Status: Ordered hydroCHLOROthiazide 12.5 mg / irbesartan 150 mg oral tablet (3 sources) Thiazide Diuretic, Angiotensin 2 Receptor [place] Start: 2 End: 3 take 1 tablet by mouth once daily hydrochlorothiazi de-irbesartan 12.5 mg-150 mg oral tablet Dose = 0.5 tab(s), Oral, Daily, # 45 tab(s), 3 Refill(s), [facility]: [id number], Hypertension, 160, cm, 09/13/21 9:38:00 EDT, Height, kg, 09/13/21 9:38:00 EDT, Dosing Weight Start Date: 09/13/21 Stop Date: 09/08/22 Status: Ordered ibuprofen 200 mg oral tablet (6 sources) Nonsteroidal Anti-inflammatory Drug Start: 9 ibuprofen 200 mg oral tablet Dose : 400 mg = 2 tab(s), Oral, q6h, PRN for pain, Take with food or milk., 0 Refill(s) Start Date: 01/28/19 Status: Ordered LORazepam 0.5 mg oral tablet (6 sources) Benzodiazepine Start: 3 End: 4 LORazepam 0.5 mg oral tablet Dose : 0.5 mg = 1 tab(s), Oral, qDay, PRN as needed for anxiety, OARRS reviewed 05/23. May fill 05/24., # 10 tab(s), 0 Refill(s), [facility]: [id number], Chronic anxiety, 161, cm, 05/15/23 8:35:00 EST, Height, 67.1, kg, 05/15/23 8:35:00 EST, Dosing Weight Start Date: 05/23/23 Stop Date: 06/22/23 Status: Ordered Problems Problem Classification Problem Date Documented Da te Episodic/Chronic Anxiety disorders (7 sources) Chronic anxiety; Translations: [Anxiety disorder] 09-22-2019 Chronic Cardiac dysrhythmias (1 source) Fluttering heart 05-16-2023 Episodic Essential hypertension (8 sources) Hypertensive disorder; Translations: [Essential (primary) hypertension] Onset: 09-07-2022 06-23-2019 Chronic Miscellaneous mental health disorders (6 sources) Chronic insomnia 06-23-2019 Chronic Other connective tissue disease (2 sources) Cramp 09-29-2022 Episodic Other hereditary and degenerative nervous system conditions (6 sources) Dystonia 09-30-2020 Chronic Other lower respiratory disease (1 source) Dyspnea on exertion 05-16-2023 Episodic Residual codes; unclassified (6 sources) Chronic pain 01-28-2019 Episodic Residual codes; unclassified (1 source) Insomnia; Translations: [Insomnia, unspecified] Episodic Unclassified (6 sources) Drug therapy finding 09-14-2021 Unclassified (6 sources) Patient encounter status 06-14-2021 Unclassified (2 sources) History of clinical finding in subject 09-29-2022 Results Test Name Value Interpretation Reference Range Facil ity Encounters Encounter Date Encounter Type Care Provider Facility Start: 06-14-2023 End: 06-15-2023 ambulatory RAND BARBOZA SUPERVISOR [employer] FEEDER Facility:B Start: 06-14-2023 End: 06-14-2023 Patient encounter procedure RAND BARBOZA SUPERVISOR [employer] FEEDER [facility] Start: 06-05-2023 ambulatory RAND BARBOZA SUPERVISOR [employer] FEEDER Fa cility:B Start: 03-13-2023 End: 03-18-2023 ambulatory RAND BARBOZA SUPERVISOR [employer] FEEDER Facility:B Start: 02-28-2023 End: 03-01-2023 ambulatory RAND BARBOZA SUPERVISOR [employer] FEEDER Facility:B Start: 02-28-2023 End: 02-28-2023 Patient encounter procedure RAND BARBOZA SUPERVISOR [employer]AT[employer] PR[employer] FEEDER [facility] Start: 02-28-2023 End: 02-28-2023 Well adult monitoring check done RAND BARBOZA SUPERVISOR [employer] FEEDER [facility] Start: 09-07-2022 End: 09-12-2022 ambulatory RAND BARBOZA SUPERVISOR [employer] FEEDER Facility:B Start: 09-07-2022 End: 09-11-2022 Outreach Lab RAND BARBOZA SUPERVISOR [employer] FEEDER [facility] Start: 03-29-2022 End: 03-29-2022 Patient encounter procedure RAND BARBOZA SUPERVISOR [employer] FE[employer]ER [facility] Start: 03-28-2022 End: 04-01-2022 Outreach Lab RAND BARBOZA SUPERVISOR [employer] FEEDER [facility] Start: 02-13-2022 End: 02-13-2022 Patient encounter procedure RAND BARBOZA [facility] Procedures Date Procedure Procedure Detail Performing Clinician Start: 08-14-2018 Colonoscopy normal (finding) RAND BARBOZA SUPERVISOR [employer] FEEDER Immunizations Immunization Date Immunization Notes Care Provider Fa poli 06-09-2021 SARS-CoV-2 mRNA (tozinameran) vaccine RAND BARBOZA SUPERVISOR [facility] 09-23-2020 SARS-CoV-2 mRNA (tozinameran) vaccine [facility] 09-02-2020 SARS-CoV-2 mRNA (tozinameran) vaccine [facility] Payers Date Payer Category Payer Unknown [id number] 1965 Unknown [id number] [id number] [id number] 1965 Unknown [id number] 2.16.8 [id number] 1965 Unknown [id number] 2.16.8 [id number] 1965 Unknown [id number] 2.16.8 [id number] 1965 Unknown [id number] 2.16.8 [id number] Social History Date Type Detail Facility Start: 01-28-2019 End: 03-14-2022 Tobacco smoking status Ex-smoker (finding) [facility] Clinical Notes 03-29-2022 to 06-14-2023 RadiologyRadiologyRadiology Note Date & Type Note Facility 06-14-2023 Note ORIGINAL NM MYOCARDIAL SPECT STRESS/REST CLINICAL STATEMENT: shortness of breath on exertion TECHNIQUE: Lexiscan dose:0.4 mg Radiopharmaceutical (stress): Tc-99m Sestamibi Dose:31.9 mCi Radiopharmaceutical (rest): Tc-99m Sestamibi Dose:10.4 mCi SPECT acquisition and processing Reconstruction and reorientation of SPECT images into short axis, vertical and horizontal long axis planes Quantitative LVEF assessment COMPARISON:None REPORT: Poststress myocardial perfusion images showed to relatively uniform distribution throughout all myocardium. GI uptake artifact was noted at inferior lateral wall Resting images showed similar perfusion LVEF 78% with normal wall motion and wall thickening TID 0.89 IMPRESSION: Negative for ischemia or infarct imaging part of the stress test Breast attenuation artifact was noted. Extracardiac GI uptake artifact was noted LVEF more than 75% with normal wall motion Interpreted By: Duane Olivas Preliminary Report By: Duane Oliavs Electronically Signed By: Duane Olivas Dictated Date: 06/14/2023 5:16:23 PM Prelim Date: 06/14/2023 5:16:23 PM Sign Date: 06/14/2023 5:18:35 PM Ordering Provider:[facility] 03-29-2022 Note ORIGINAL EXAMINATION: CT OF THE ABDOMEN AND PELVIS WITHOUT CONTRAST 03/29/2022 9:52 am TECHNIQUE: CT of the abdomen and pelvis was performed without the administration of intravenous contrast. Multiplanar reformatted images are provided for review. Automated exposure control, iterative reconstruction, and/or weight based adjustment of the mA/kV was utilized to reduce the radiation dose to as low as reasonably achievable. COMPARISON: None. HISTORY: ORDERING SYSTEM PROVIDED HISTORY: Reason for Exam: suspected kidney stone FINDINGS: The heart is normal in size. No pericardial thickening or effusion. Visualized portions of the lungs are unremarkable. The abdominal aorta is normal in caliber with no significant atherosclerotic disease. No pathologically enlarged lymphadenopathy. The liver is normal in contour and attenuation. The gallbladder is surgically removed. The spleen, pancreas, and adrenals are unremarkable. Status post hysterectomy. The kidneys are symmetric in size. No hydronephrosis. There are 3 nonobstructive calculi noted in the left kidney. The largest is located in the left lower pole measures approximately 6 mm. The ureters are normal in course and caliber. The bladder is well distended without wall thickening or focal abnormality. No intraperitoneal free air or fluid. The large bowel is unremarkable. The appendix is surgically removed. The small bowel is normal in caliber with no signs of obstruction. The esophagus, stomach, and duodenum are unremarkable. Mild degenerative changes of the lumbar spine. Osseous structures are intact. No soft tissue abnormality. IMPRESSION: 1. Left nonobstructive nephrolithiasis. 2. Other incidental findings as above. I have personally reviewed the images of this examination and agree with the resident's findings and interpretation. Interpreted by: Corby Ramesh MD Preliminary Report By: Ady Coburn Electronically signed By Corby Ramesh MD Dictated Date: 03/29/2022 1:18:08 PM Prelim Date: 03/29/2022 3:31:26 PM Sign Date: 03/29/2022 3:31:26 PM Ordering Provider: [facility] 03-29-2022 Note ORIGINAL EXAMINATION: CT OF THE ABDOMEN AND PELVIS WITHOUT CONTRAST 03/29/2022 9:52 am TECHNIQUE: CT of the abdomen and pelvis was performed without the administration of intravenous contrast. Multiplanar reformatted images are provided for review. Automated exposure control, iterative reconstruction, and/or weight based adjustment of the mA/kV was utilized to reduce the radiation dose to as low as reasonably achievable. COMPARISON: None. HISTORY: ORDERING SYSTEM PROVIDED HISTORY: Reason for Exam: suspected kidney stone FINDINGS: The heart is normal in size. No pericardial thickening or effusion. Visualized portions of the lungs are unremarkable. The abdominal aorta is normal in caliber with no significant atherosclerotic disease. No pathologically enlarged lymphadenopathy. The liver is normal in contour and attenuation. The gallbladder is surgically removed. The spleen, pancreas, and adrenals are unremarkable. Status post hysterectomy. The kidneys are symmetric in size. No hydronephrosis. There are 3 nonobstructive calculi noted in the left kidney. The largest is located in the left lower pole measures approximately 6 mm. The ureters are normal in course and caliber. The bladder is well distended without wall thickening or focal abnormality. No intraperitoneal free air or fluid. The large bowel is unremarkable. The appendix is surgically removed. The small bowel is normal in caliber with no signs of obstruction. The esophagus, stomach, and duodenum are unremarkable. Mild degenerative changes of the lumbar spine. Osseous structures are intact. No soft tissue abnormality. IMPRESSION: 1. Left nonobstructive nephrolithiasis. 2. Other incidental findings as above. I have personally reviewed the images of this examination and agree with the resident's findings and interpretation. Interpreted by: Corby Ramesh MD Preliminary Report By: Ady Coburn Electronically signed By Corby Ramesh MD Dictated Date: 03/29/2022 1:18:08 PM Prelim Date: 03/29/2022 3:31:26 PM Sign Date: 03/29/2022 3:31:26 PM Ordering Provider: RAND BARBOZA [facility] Evaluation + Plan note Future Appointments Appointment Date:03/14/2022 09:30:00 AM Scheduled Provider:RAND BARBOZA Location:[facility] Appointment Type:PC OV Controlled Medication [facility] Evaluation + Plan note Future Appointments Appointment Date:06/01/2022 09:30:00 AM Scheduled Provider:RAND BARBOZA Location:[facility] Appointment Type:PC OV Future Scheduled TestsCT Urogram 03/28/22 [facility] Evaluation + Plan note Future Appointments Appointment Date:12/14/2022 10:30:00 AM Scheduled Provider:RAND BARBOZA Location:[facility] Appointment Type:PC Wellness Annual Future Scheduled TestsCT Urogram 03/28/22 [facility] Evaluation + Plan note Future Appointments Appointment Date:03/13/2023 10:30:00 AM Scheduled Provider:RAND BARBOZA Location:[facility] Appointment Type:PC OV Future Scheduled TestsCT Urogram 03/28/22 [facility] Evaluation + Plan note Future Appointments Appointment Date:06/20/2023 09:00:00 AM Scheduled Provider:RAND BARBOZA Location:[facility] Appointment Type:PC OV [facility] Hospital course Narrative No data available for this section [facility] Discharge instructions No data available for this section [facility] Progress note No data available for this section [facility] Summary Purpose Family History No Family History Records Found Advance Directives No Advanced Directives Records Found Additional Source Comments Care Team (unrecognized sect ion and content) Care Team Personnel Name: RAND BARBOZA Position: P4 Advanced Practice Nurse Member Role: Primary Care Physician Address: Address: [address] [place] [address] [facility] [address] Name: MEENA VOSS MD Position: CV Physician Address: Address: [address] [place] [address] Care Team Related Persons Name: AQUILINO VINCENT Address: Home [address] [place], [place] [id number] Care Team Personnel Name: RAND BARBOZA Position: P4 Advanced Practice Nurse Med Service: Active Provider Member Role: Primary Care Physician Address: Address: [address] [place] [address] Name: MEENA VOSS MD Position: CV Physician Med Service: Active Provider Member Role: Neurologist Address: Address: [address] [place] [address] Care Team Related Persons Name: AQUILINO VINCENT Address: Home [address] [place] [employer], [place] [id number] Care Team Personnel Name: RAND BARBOZA Position: P4 Advanced Practice Nurse Med Service: Active Provider Member Role: Primary Care Physician Address: Address: [address] [place] [id number] [place] [address] Name: MEENA VOSS MD Position: CV Physician Med Service: Active Provider Member Role: Neurologist Address: Address: [address] Care Team Related Persons Name: AQUILINO VINCENT Address: Home [address] [place] [employer], [place] [id number] Patient Care team informatio n (unrecognized section and content) Care Team Personnel Name: RAND BARBOZA Position: P4 Advanced Taxi Proprietor Member Role: Primary Care Physician Address: Address: [address] [place] [address]- Name: MEENA VOSS MD Position: [facility] Physician Member Role: Neurologist Address: Address: [address] [id number]- Name: TAYLA ATKINSON MD Position: P3 Physician - Urologist Member Role: Urologist Address: Address: [address] [address] Care Team Related Persons Name: AQUILINO VINCENT Address: Home [address] [place] [id number] Care Team Personnel Name: RAND BARBOZA APRN-JOB PRESS FEEDER Position: P4 Advanced Taxi Proprietor Member Role: Primary Care Physician Address: Address: [address] [place] [address]- Name: MEENA VOSS MD Position: [facility] Physician Member Role: Neurologist Address: Address: [address] [place] [address]- Name: TAYLA ATKINSON MD Position: P3 Physician - Urologist Member Role: Urologist Address: Address: [address] [id number]- Care Team Related Persons Name: MELISA AQUILINO Address: Home [address] [place], [place] [id number] Care Team Personnel Name: RAND BARBOZA APRN-JOB PRESS FEEDER Position: P4 Advanced Taxi Proprietor Member Role: Primary Care Physician Address: Address: [address] [place] [address] Name: MEENA VOSS MD Position: [facility] Physician Member Role: Neurologist Address: Address: [address] [id number]- Name: TAYLA ATKINSON MD Position: P3 Physician - Urologist Member Role: Urologist Address: Address: [address] [address] Care Team Related Persons Name: MELISA AQUILINO Address: Home [address] [place], [place] [id number] [place] INFORMATION SOURCE (unrecogn ized section and content) FOR RECORDS PERTAINING TO PATIENTS WHO ARE OR HAVE BEEN ENROLLED IN A CHEMICAL DEPENDENCY/SUBSTANCEABUSE PROGRAM, SOME INFORMATION MAY BE OMITTED. This clinical summary was aggregated from multiple sources. Caution should be exercised in using it in the provision of clinical care. This summary normalizes information from multiple sources, and as a consequence, information in this document may materially change the coding, format and clinical context of patient data. In addition, data may be omitted in some cases. CLINICAL DECISIONS SHOULD BE BASED ON THE PRIMARY CLINICAL RECORDS. [facility]. provides no warranty or guarantee of the accuracy or completeness of information in this document.
== END | disposition home or self-care (01) ==
LOC: OPBI 09:00
PROVIDERS: PCP Nurse Practitioner Primary Care; Referring Provider Nurse Practitioner Primary Care; Visit Provider Nurse Practitioner Primary Care
DX: Z12.31 Encounter for screening mammogram for malignant neoplasm of breast (principal)
CPT/HCPCS: 77063; 77067

== ENCOUNTER → 2024-06-30 | Outpatient (CLI) | payer OTHER, SELFPAY ==
--- NOTE | 2024-06-30 10:31 | BI_ITS ---
MAMMOGRAPHY - BILATERAL SCREENING REASON FOR EXAM: Female, 59 years old. Routine annual screening examination. PERTINENT HISTORY: Non-contributory. TECHNIQUE: Digital bilateral breast luis (3D mammographic acquisition) in the CC and MLO projections. 2-D mediolateral oblique (MLO) and craniocaudad (CC) views of both breasts were obtained. CAD: Full Field Digital Mammography with Computer Added Detection was performed. COMPARISON: Comparison is made with prior study dated June 27, 2023 and June 22, 2022. FINDINGS: Breast Composition: The breasts are heterogeneously dense, which may obscure small masses. There are no dominant masses or suspicious calcifications. No other significant abnormalities are identified. There has been no significant change since the prior study. BI/SCRN MAMM (CAD)W/LUIS BILAT IMPRESSION: Stable bilateral screening mammogram. Yearly follow-up mammogram recommended. (A) ASSESSMENT CATEGORY: BIRADS Category 1: Negative. A letter regarding these results will be sent to the patient by the facility within 30 days. Approximately 10% of breast cancers are not detected by mammography. A normal mammogram should not delay biopsy of a clinically suspicious abnormality. [id number] Electronically Signed: Ronnell Perea MD at 11:15 EST ,
== END | disposition home or self-care (01) ==
PROVIDERS: PCP Nurse Practitioner Primary Care; Referring Provider Nurse Practitioner Primary Care; Visit Provider Nurse Practitioner Primary Care
DX: Z12.31 Encounter for screening mammogram for malignant neoplasm of breast (principal)

== ENCOUNTER → 2025-03-27 | Outpatient (CLI) | payer OTHER, SELFPAY ==
--- NOTE | 2025-03-27 19:02 | CT_ITS ---
PROCEDURE: ABDOMEN/PELVIS WITHOUT CONT 03/27/2025 REASON FOR EXAM: KIDNEY STONE Kidney stones. TECHNIQUE: Procedure Code: CTABDPEL Modality: CT Procedure: ABDOMEN/PELVIS WITHOUT CONT Noncontrast technique limits evaluation of the abdominal and pelvic viscera. Coronal and Sagittal reconstruction series were provided. One or more dose reduction techniques were used (e.g., Automated exposure control, adjustment of the mA and/or kV according to patient size, use of iterative reconstruction technique). RADIATION DOSE SUMMARY: CTDlvol: 9 mGy DLP: 432.4 mGycm COMPARISON: December 2018 FINDINGS: Lung bases: Negative. ABDOMEN Liver: Negative. Biliary system: Negative. Negative for intrahepatic or extrahepatic ductal dilatation. Gallbladder: Removed . Spleen: Negative. Pancreas: Negative. Adrenals: Negative. Kidneys: Nonobstructing left kidney stones. Punctate nonobstructing right kidney stones. Negative for renal mass or cysts. Bowel: Increased stool throughout the colon with mild diffuse diverticulosis. Negative for small or large-bowel obstruction. Appendix: The appendix is not identified. There is no inflammatory process identified in the right lower quadrant to suggest appendicitis. Vasculature: Mild atherosclerotic vascular calcifications of the abdominal aorta and its branches. Peritoneum / Retroperitoneum: Negative. PELVIS Lymph nodes: Negative for inguinal or iliac adenopathy. Bladder: Negative Reproductive Organs: Hysterectomy. Bones and Soft Tissues: Moderate degenerative changes of the lower lumbar spine. Otherwise age appropriate appearance of the lumbar spine hips and pelvis. CT/Abdomen/Pelvis without Cont IMPRESSION: Nonobstructing nephrolithiasis. Negative for acute intra-abdominal or pelvic pathology. Reading Location: [id number]
== END | disposition home or self-care (01) ==
PROVIDERS: PCP Nurse Practitioner Primary Care; Referring Provider Urology; Visit Provider Urology
DX: N20.0 Calculus of kidney (principal)
CPT/HCPCS: 74176

== ENCOUNTER 2025-04-09 11:32 | Emergency (ER) | payer OTHER, SELFPAY ==
[2025-04-09] VITALS (9 sets, daily range): BP systolic 125–150; BP diastolic 69–84; PULSE 66–80; RESP 12–18; TEMP 36.2; O2SAT 98–100; BMI 27.6
[2025-04-09] MEDS: 0.9% Normal Saline (1000mL) 1,000 ML 250 ML IV (14:13)
[2025-04-09 14:27] LABS: Hematocrit 42.0 % (37-47); Hemoglobin 14.3 g/dL (12.0-15.0); Immature Granulocytes Count 0.050 X10^3/uL (0.0-0.0); Mean Corp Hgb Conc 34.0 g/dL (32-36); Mean Corpuscular Volume 88.8 fL (81-99); Mean Platelet Vol. 9.8 fl (6.2-12.0); NRBC Flagged by Analyzer 0 % (0-5); Platelet Count 255 K/mm3 (150-450); RBC Distribution Width CV 11.9 % (11.6-14.6); RBC Distribution Width SD 38.7 fl (35.1-43.9); Red Blood Count 4.73 M/mm3 (4.2-5.4); White Blood Count 7.7 K/mm3 (4.4-11.0)
[2025-04-09 15:17] LABS: Anion Gap 11 (5-15); BUN 13 mg/dL (4-19); BUN/Creat Ratio 22.3 RATIO (10-20); Calcium,Total 9.5 mg/dL (7.6-11.0); Carbon Dioxide 22.8 mmol/L (21.0-32.0); Chloride 107 mmol/L (98-108); Estimated Creatinine Clearance 95.18 ml/min (50-250); Glucose 86 mg/dL (70-99); Potassium 3.6 mmol/L (3.3-5.1); Troponin T High Sensitivity 6 ng/L (<=14)
[2025-04-09 16:21] LABS: Troponin T High Sens 2 HR < 6 ng/L (<=14)
== END 2025-04-09 18:33 | disposition home or self-care (01) ==
PROVIDERS: Emergency Provider Emergency Medicine; PCP Nurse Practitioner Primary Care; Visit Provider Emergency Medicine
DX: R07.89 Other chest pain (principal); Z87.891 Personal history of nicotine dependence; I10 Essential (primary) hypertension
CPT/HCPCS: 71275; 74174; 80048; 84484; 85025; 93005; 96360; 96361; 99284; Q9967; A4216

== ENCOUNTER 2025-04-16 07:30 | Day surgery (SDC) | payer OTHER, SELFPAY ==
[2025-04-08 12:29] LABS: Hematocrit 40.8 % (37-47); Hemoglobin 13.8 g/dL (12.0-15.0); Immature Granulocytes Count 0.010 X10^3/uL (0.0-0.0); Mean Corp Hgb Conc 33.8 g/dL (32-36); Mean Corpuscular Volume 88.9 fL (81-99); Mean Platelet Vol. 9.8 fl (6.2-12.0); NRBC Flagged by Analyzer 0 % (0-5); Platelet Count 244 K/mm3 (150-450); RBC Distribution Width CV 11.9 % (11.6-14.6); RBC Distribution Width SD 38.8 fl (35.1-43.9); Red Blood Count 4.59 M/mm3 (4.2-5.4); White Blood Count 4.9 K/mm3 (4.4-11.0)
[2025-04-08 12:59] LABS: Anion Gap 9 (5-15); BUN 11 mg/dL (4-19); BUN/Creat Ratio 19.1 RATIO (10-20); Calcium,Total 9.6 mg/dL (7.6-11.0); Carbon Dioxide 25.3 mmol/L (21.0-32.0); Chloride 108 mmol/L (98-108); Glucose 97 mg/dL (70-99); Potassium 4.5 mmol/L (3.3-5.1)
--- NOTE | 2025-04-10 16:51 | PAT.ANESEVAL ---
Pre-Assessment Diagnosis/Proposed Procedure Planned Operative Procedure(s): LEFT ESWL Anesthesia History Anesthesia History - qc scientist: Anesthesia History - qc scientist Hx Hospitalization No 04/10/25 12:47 Any Problems With Anesthesia Yes: PONV 04/10/25 12:47 Cholinesterase deficiency No 04/10/25 12:47 You/Your Family Experience No 04/10/25 12:47 fever (hyperthermia) with Relationship Recent Exposure to Contagious No 01/08/19 11:23 Disease Does patient have nerve No 04/10/25 12:47 stimulator Patient instructed to have device shut off --Does patient have Pacemaker or ICD? When Was Last Pacemaker Check QUESTION #4 FULL TEXT: You/Your Family Experience fever (hyperthermia) with Anesthesia Last Oral Intake Last Oral intake: Last Oral Intake NPO since Meds taken in AM with sips of water? Meds patient instructed to take am of surgery PONV PONV - qc scientist: PONV - qc scientist Female Yes 04/10/25 12:47 HX of Motion Sickness No 04/10/25 12:47 HX of N/V After Surgery Yes 04/10/25 12:47 Non-Smoker Yes 04/10/25 12:47 Duration of Surgery greater Yes 04/10/25 12:47 than 60 minutes Number of Risk Factors 4 04/10/25 12:47 PONV Score Severe Risk 04/10/25 12:47 Height & Weight Height & Weight: Anesthesia: Height & Weight Height 5 ft 3 in 03/16/25 13:17 Respiratory Assessment Respiratory Assessment - qc scientist: Respiratory Tract Infection Hx - qc scientist Hx Respiratory Tract Infection No 04/10/25 12:47 STOP Sleep Apnea STOP Sleep Apnea - qc scientist: STOP Sleep Apnea - qc scientist Hx Hypertension Yes: CONTROLLED WITH MED 04/10/25 12:47 Hx Sleep Apnea No 04/10/25 12:47 CPAP No 01/08/19 13:59 BIPAP Do you snore loudly (louder No 04/10/25 12:47 than talking or can be heard Do you often feel tired/ No 04/10/25 12:47 fatigued/ sleepy during daytime? Has anyone observed you stop No 04/10/25 12:47 breathing during sleep? STOP Results Negative 04/10/25 12:47 QUESTION #5 FULL TEXT : Do you snore loudly (louder than talking or can be heard through closed doors)? 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 Specify any problems Hx of Preganancy in last 3 No 04/10/25 12:47 Months Nurse Filling Out Transfusion DSCHRIBER 04/10/25 12:47 & Questions: Date: 04/10/25 04/10/25 12:47 Time: 12:48 04/10/25 12:47 Patient unable to answer at this time (ie. confused, unrespo /Reproduction History /Reproductive History - qc scientist: /Reproductive Hx- qc scientist Hx Now No 04/10/25 12:47 Gestational Age (in weeks): EDC: Hx Hx Para Hx Section SAB No 04/10/25 12:47 PFSH Medical History (Updated 04/10/25 @ 12:55 by Amarilys Quinn) Wears glasses Post-menopausal Anxiety Alcohol use Back pain Blackout Heartburn Former smoker Shortness of breath on exertion Restless legs History of stress test Cardiology follow-up encounter History of irregular heartbeat Neuropathy Hypertension Arthritis Home Medications ?Medication ?Instructions ?Recorded ?Last Taken ?Type zolpidem 10 mg tablet (Ambien) 10 mg PO QHS sleep. 10/08/17 01/04/19 History lorazepam 0.5 mg tablet (Ativan) 0.5 mg PO QDAY PRN anxiety 03/16/25 Unknown History biotin 10,000 mcg capsule 10,000 mcg PO DAILY 04/08/25 Unknown History escitalopram oxalate 20 mg tablet 20 mg PO QDAY 04/08/25 Unknown History losartan 50 mg tablet 50 mg PO QDAY 04/08/25 Unknown History magnesium 250 mg tablet 250 mg PO QDAY 04/08/25 Unknown History oxycodone-acetaminophen 5 mg-325 1 tab PO TID PRN pain 3 days #10 04/08/25 Unknown Rx mg tablet (Percocet) tabs Allergy/AdvReac Type Severity Reaction Status Date / Time Penicillins Allergy Rash Verified 04/10/25 12:44 Family History Other Anxiety Hypertension Surgical History (Updated 04/10/25 @ 12:55 by Amarilys Quinn) Hx of lithotripsy Hx of lumbar discectomy H/O: hysterectomy History of appendectomy S/P cholecystectomy Social History Smoking Status: Former smoker alcohol intake: current details: occasionally substance use type: does not use what type of physical activity do you participate in: walking and other frequency: daily do you feel safe at home: Yes Audit: Pertinent Findings Pertinent Findings EKG Perinent findings: 01/05/2019. Normal sinus rhythm. Septal infarct, age undetermined. Recommendation Anesthesia Recommendation Anesthesia recommendation: OPTIMIZED for anesthesia
[2025-04-16] VITALS (7 sets, daily range): BP systolic 115–145; BP diastolic 62–92; PULSE 66–83; RESP 16–17; TEMP 36.4–36.9; O2SAT 93–100; BMI 27.3
[2025-04-16] MEDS: Lactated Ringers 1,000 ML 15 ML IV (08:10)
--- NOTE | 2025-04-16 08:16 | PCM.PRE.AN2 ---
ASA Classification* ASA Classification ASA Classification: 2 Assessment & Plan Anesthesia* Anesthesia Assessment Anesthesia Assessment: Discussed sedation and/or anesthesia options, risks, benefits, and alternatives with patient/parents/legal guardian/POA. Questions invited. The patient/parents/legal guardian/POA seems to understand and agrees to proceed with anesthesia plan. Reviewed the physical assessment, medical history, allergy history and patient home medications list prior to surgery/procedure/anesthetic and documented any changes. Performed airway and anesthesia risk assessments. Anesthesia Type Anesthesia Type: General History Source History Obtained from:: Patient and Chart Anesthesia Focused Assessment* Temperature: 98.5 F Pulse Rate: 67 Blood Pressure: 145/81 Respiratory Rate: 17 Pulse Ox: 97 Oxygen Delivery Method: Room Air Airway Assessment Mouth opens: >3 cm Mallampati Score: I Teeth Condition: Caps/Crowns (Patient has couple crowns. They are tight.) Neck Range of motion (ROM): Full ROM Labs Anesthesia Preop lab: CBC WBC, (4.4-11.0) 7.7 K/mm3 04/09/25, 12:41 RBC, (4.2-5.4) 4.73 M/mm3 04/09/25, 12:41 Hgb, (12.0-15.0) 14.3 g/dL 04/09/25, 12:41 Hct, (37-47) 42.0 % 04/09/25, 12:41 Plt Count, (150-450) 255 K/mm3 04/09/25, 12:41 CHEMISTRY Potassium, (3.3-5.1) 3.6 mmol/L 04/09/25, 12:41 Sodium, (133-145) 140 mmol/L 04/09/25, 12:41 Phosphorus, (2.5-4.9) 2.4 mg/dL L 03/03/19, 14:57 BUN, (4-19) 13 mg/dL 04/09/25, 12:41 Creatinine, (0.70-1.20) 0.60 mg/dL L 04/09/25, 12:41 Glucose, (70-99) 86 mg/dL 04/09/25, 12:41 COAG Pre-Assessment Diagnosis/Proposed Procedure Planned Operative Procedure(s): LEFT ESWL Anesthesia History Anesthesia History - indirect sales representative: Anesthesia History - indirect sales representative Hx Hospitalization No 04/10/25 12:47 Any Problems With Anesthesia Yes: PONV 04/10/25 12:47 Cholinesterase deficiency No 04/10/25 12:47 You/Your Family Experience No 04/10/25 12:47 fever (hyperthermia) with Relationship Recent Exposure to Contagious No 01/08/19 11:23 Disease Does patient have nerve No 04/10/25 12:47 stimulator Patient instructed to have device shut off --Does patient have Pacemaker or ICD? When Was Last Pacemaker Check QUESTION #4 FULL TEXT: You/Your Family Experience fever (hyperthermia) with Anesthesia Last Oral Intake Last Oral intake: Last Oral Intake NPO since 0000 Meds taken in AM with sips of water? Meds patient instructed to take am of surgery Any additional information?: Yes NPO since: 00:00 Meds taken in AM with sips of water?: Yes PONV PONV - indirect sales representative: PONV - indirect sales representative Female Yes 04/10/25 12:47 HX of Motion Sickness No 04/10/25 12:47 HX of N/V After Surgery Yes 04/10/25 12:47 Non-Smoker Yes 04/10/25 12:47 Duration of Surgery greater Yes 04/10/25 12:47 than 60 minutes Number of Risk Factors 4 04/10/25 12:47 PONV Score Severe Risk 04/10/25 12:47 Height & Weight Height & Weight: Anesthesia: Height & Weight Height 5 ft 3 in 03/16/25 13:17 Respiratory Assessment Respiratory Assessment - indirect sales representative: Respiratory Tract Infection Hx - indirect sales representative Hx Respiratory Tract Infection No 04/10/25 12:47 STOP Sleep Apnea STOP Sleep Apnea - indirect sales representative: STOP Sleep Apnea - indirect sales representative Hx Hypertension Yes: CONTROLLED WITH MED 04/10/25 12:47 Hx Sleep Apnea No 04/10/25 12:47 CPAP No 01/08/19 13:59 BIPAP Do you snore loudly (louder No 04/10/25 12:47 than talking or can be heard Do you often feel tired/ No 04/10/25 12:47 fatigued/ sleepy during daytime? Has anyone observed you stop No 04/10/25 12:47 breathing during sleep? STOP Results Negative 04/10/25 12:47 QUESTION #5 FULL TEXT : Do you snore loudly (louder than talking or can be heard through closed doors)? 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 Specify any problems Hx of Preganancy in last 3 No 04/10/25 12:47 Months Nurse Filling Out Transfusion DSCHRIBER 04/10/25 12:47 & Questions: Date: 04/10/25 04/10/25 12:47 Time: 12:48 04/10/25 12:47 Patient unable to answer at this time (ie. confused, unrespo /Reproduction History /Reproductive History - indirect sales representative: /Reproductive Hx- indirect sales representative Hx Now No 04/10/25 12:47 Gestational Age (in weeks): EDC: Hx Hx Para Hx Section SAB No 04/10/25 12:47 Active Medications Active Medications: Current Medications Generic Name Dose Route Start Last Admin Trade Name Freq PRN Reason Stop Dose Admin Ciprofloxacin 400 mg in 200 mls @ 200 mls/hr 04/16/25 09:10 Cipro IV 04/16/25 10:09 PREOP ONE Lactated Ringer's 1,000 mls @ 15 mls/hr 04/16/25 07:45 IV .Q48H MICHAEL PFSH Medical History Wears glasses Post-menopausal Anxiety Alcohol use Back pain Blackout Heartburn Former smoker Shortness of breath on exertion Restless legs History of stress test Cardiology follow-up encounter History of irregular heartbeat Neuropathy Hypertension Arthritis Home Medications ?Medication ?Instructions ?Recorded ?Last Taken ?Type zolpidem 10 mg tablet (Ambien) 10 mg PO QHS sleep. 10/08/17 01/04/19 History lorazepam 0.5 mg tablet (Ativan) 0.5 mg PO QDAY PRN anxiety 03/16/25 04/16/25 History biotin 10,000 mcg capsule 10,000 mcg PO DAILY 04/08/25 Unknown History escitalopram oxalate 20 mg tablet 20 mg PO QDAY 04/08/25 Unknown History losartan 50 mg tablet 50 mg PO QDAY 04/08/25 04/16/25 History magnesium 250 mg tablet 250 mg PO QDAY 04/08/25 Unknown History Allergy/AdvReac Type Severity Reaction Status Date / Time Penicillins Allergy Rash Verified 04/16/25 08:27 Family History Other Anxiety Hypertension Surgical History Hx of lithotripsy Hx of lumbar discectomy H/O: hysterectomy History of appendectomy S/P cholecystectomy Social History Smoking Status: Former smoker alcohol intake: current details: occasionally substance use type: does not use what type of physical activity do you participate in: walking and other frequency: daily do you feel safe at home: Yes Review of Systems (Anesthesia) ROS Narrative System reviewed and no additional complaints, except as documented.
--- NOTE | 2025-04-16 08:49 | HP.PCM_ITS ---
History and Physical
--- NOTE | 2025-04-16 08:49 | PCM.HP.BLA ---
History and Physical Date of Admission: 04/16/25 Date of Service: 04/08/25 MR#: [id number] Acct: [id number] Name: MARTÍNEZ VINCENT Rep #: [id number] : 1965 Provider: Dr. Marialuisa Gottlieb MD Age/Sex: 59/F Location: [facility] [email or web address] Status: Signed Intake Vital Signs 03/16/2513:17 04/08/2508:48 Height 5 ft 3 in 5 ft 3 in Weight: 152 lb 152 lb BMI 26.9 26.9 BP 135/82 H 142/98 H Pulse 73 65 Intake Visit Reasons: LITHOTRIPSY/PRE-OP Chief Complaint: preoperation vitis with urine and consent Measurement And Verification Engineer Required: No Accompanied by: self Is patient in pain?: Yes (back aching) Pain scale (1-10): 2 Allergies Penicillins Allergy (Verified 04/08/25 08:48) Rash Medications ?Medication ?Instructions ?Recorded ?Confirmed ?Type zolpidem 10 mg tablet (Ambien) 10 mg PO QHS sleep. 10/08/17 04/08/25 History lorazepam 0.5 mg tablet (Ativan) 0.5 mg PO QDAY PRN 03/16/25 04/08/25 History biotin 10,000 mcg capsule mcg PO 04/08/25 04/08/25 History escitalopram oxalate 20 mg tablet 20 mg PO QDAY 04/08/25 04/08/25 History losartan 50 mg tablet 50 mg PO QDAY 04/08/25 04/08/25 History magnesium 250 mg tablet 250 mg PO QDAY 04/08/25 04/08/25 History oxycodone-acetaminophen 5 mg-325 1 tab PO TID PRN pain 3 days #10 04/08/25 04/08/25 Rx mg tablet (Percocet) tabs Nurse's Note: overall achy and tired. lower back pain. [facility] Medical History Stress incontinence Neuropathy Hives Hypertension Chronic headaches Gallstones Emotional problems UTI (urinary tract infection) Back problem Arthritis Allergies Surgical History H/O: hysterectomy History of appendectomy S/P cholecystectomy Previous back surgery Family History Other Anxiety Hypertension Social History Smoking Status: Former smoker alcohol intake: current details: occasionally substance use type: does not use what type of physical activity do you participate in: walking and other frequency: daily do you feel safe at home: Yes HPI HPI Urology Chief Complaint: preoperation vitis with urine and consent Details: MARTÍNEZ VINCENT, is a 59 F. The patient is here for preoperative history and physical prior to left renal extracorporal shockwave lithotripsy. There are no new symptoms since the last visit aside from fatigue. She is taking ibuprofen for left sided aching, I requested she change to Tylenol for this week and avoid aspirin. The procedure, recovery and expectations were explained. The risks, benefits and alternatives were discussed, including but not limited to, the risks of anesthesia, bleeding, infection, injury, pain and the need for further intervention. We have discussed the risk of exposure to and/or potential harm posed by the COVID-19 virus with having a surgery/procedure at this time. A joint decision was made at this time to proceed with the scheduled surgery/procedure as indicated on the consent form. ROS Const Constitutional: Positive for fatigue; No chills, fever(s), headache(s), night sweats, weakness, weight change, abnormal sleep pattern or change in appetite Eyes Eyes: No change in vision ENT ENT: No headache(s) or dry mouth Resp Respiratory: No cough, chest congestion, shortness of breath or wheezing Cardio Cardiology: Positive for other (No chest pain.); No shortness of breath, irregular heart rhythm or lightheadedness Gastro GI: Positive for other (No nausea.); No abdominal pain, change in bowel habits, constipation, diarrhea or vomiting Musc Musculoskeletal: Positive for back pain (left side); No abnormal gait Skin Skin: No yellowing of the eye, lesions, itchy eyes, rash or skin ulcer Neuro Neurology: No abnormal gait, confusion, dizziness, weakness, headache(s) or memory loss Psych Psychiatric: No abnormal sleep pattern, No change in appetite, No confusion and No memory loss Endo Endocrine: Positive for fatigue; No increased thirst/drinking or weight change Aller/Imm Allergy/Immunologic: No itchy eyes or wheezing Chuckie/Lymp Hematologic/Lymphatic: No easy bleeding, easy bruising or enlarged lymph nodes Exam Const General: cooperative, healthy appearing, comfortable and no acute distress [facility] Head: normocephalic and atraumatic Ears: hearing grossly normal bilaterally and external ears normal Nose: external nose normal Eyes General: appearance normal, both eyes and all related structures Neck Neck: normal visual inspection and trachea midline Chest Chest palpation & inspection: normal inspection of the chest Resp Effort & Inspection: normal respiratory effort, able to speak in complete sentences and symmetric chest movement Cardio Rate: regular rate GI Inspection: normal to inspection Palpation: soft and nontender General: No CVA tenderness Skin General: no rashes or lesions noted Neuro General: patient alert, patient awake, patient oriented x3 and CN's II-XI intact bilaterally Extrem General: normal to inspection Psych Appearance: grossly normal and well kempt Mental Status: mental status grossly normal Results POC UA Auto w/o Microscopy Office Urine Color ? Last Edit by Fátima Hall on 04/08/25 08:52 Office Urine Clarity ? Last Edit by Fátima Hall on 04/08/25 08:52 Office Urine Glucose Negative Last Edit by Fátima Hall on 04/08/25 08:52 Office Urine Ketones Negative Last Edit by Fátima Hall on 04/08/25 08:52 Office Urine Bilirubin Negative Last Edit by Fátima Hall on 04/08/25 08:52 Office Urine Urobilinogen 0.2 mg/dL Last Edit by Fátima Hall on 04/08/25 08:52 Off Ur Spec [place] 1.010 Last Edit by Fátima Hall on 04/08/25 08:52 Office Urine pH 7 Last Edit by Fátima Hall on 04/08/25 08:52 Office Urine Protein Trace Last Edit by Fátima Hall on 04/08/25 08:52 Office Urine Blood Negative Last Edit by Fátima Hall on 04/08/25 08:52 Office Urine Blood Hemolyzed Negative Last Edit by Fátima Hall on 04/08/25 08:52 Office Urine Nitrate Negative Last Edit by Fátima Hall on 04/08/25 08:52 Off Ur Leukocytes Negatve Last Edit by Fátima Hall on 04/08/25 08:52 Coding Level of Care Code Off vis,est,level 4 Diagnoses Kidney stones N20.0 Flank pain R10.9 Stress incontinence N39.3 Assessment and Plan Assessment and Plan (1) Kidney stones: Status: Chronic (2) Flank pain: Status: Acute (3) Stress incontinence: Status: Acute Orders: Orders POC UA Auto w/o Microscopy Today N20.0 - Calculus of kidney Basic Metabolic Profile (BMP) Today N20.0 - Calculus of kidney CBC W/Diff, Automated Today N20.0 - Calculus of kidney Medications: New oxycodone-acetaminophen 5-325 mg (Percocet) 1 TAB PO TID PRN 10 tabs 0RF pain 3 days N20.0 - Calculus of kidney Plan Urine culture today Proceed with intervention as scheduled Plan for 24-hour urinalysis after stone resolution 04/08/25 0919 <Electronically signed by Marialuisa Gottlieb MD> Date Marialuisa Gottlieb MD
[2025-04-16] MEDS: Lidocaine 1% (5 ml sdv) 5 ML Vial IV (09:00)
--- NOTE | 2025-04-16 09:03 | DCINST_ITS ---
Discharge Instructions
--- NOTE | 2025-04-16 09:03 | EX.PCM.DISCH ---
Discharge Instructions Diet Discharge Diet: No restrictions Activity Discharge Activity: Return to Normal Activity Dressing / Incision Call your doctor if you observe: Fever of 101 or Higher, Inability to urinate and Inability to have a bowel movement Follow Up Care Please Follow Up With: Marialuisa Gottlieb MD Test Results: Test results from this visit will be discussed in further detail at your follow-up appointment, if applicable. Discharge Plan Admission Attending Provider: Marialuisa Gottlieb Primary Care Provider: Kapil Melendez NP Instructions Print Language: Yakut Discharge Orders/Prescriptions Prescriptions: New oxycodone-acetaminophen 5-325 mg tablet 1 tab PO Q8H PRN (Reason: pain) 3 Days Qty: 10 0RF ondansetron 4 mg tablet,disintegrating 4 mg PO Q8H PRN (Reason: nausea and vomiting) Qty: 10 0RF nitrofurantoin monohyd/m-cryst [Macrobid] 100 mg capsule 100 mg PO BID Qty: 6 0RF Rx Instructions: must administer with a meal/food Continued lorazepam [Ativan] 0.5 mg tablet 0.5 mg PO QDAY PRN (Reason: anxiety) losartan 50 mg tablet 50 mg PO QDAY biotin 10,000 mcg capsule 10,000 mcg PO DAILY magnesium 250 mg tablet 250 mg PO QDAY escitalopram oxalate 20 mg tablet 20 mg PO QDAY zolpidem [Ambien] 10 MG tablet 10 mg PO QHS Referrals / Follow Up: Kapil Melendez NP, [facility] [Primary Care Provider, Medical] Disposition Disposition (needs filled in before D/C Order can be placed): Home, Self Care
[2025-04-16] MEDS: fentaNYL 100 MCG/2 ML Ampul IV (09:04)
[2025-04-16] MEDS: DiphenhydrAMINE 50 MG/ML Syringe 12.5 MG IV (09:06)
--- NOTE | 2025-04-16 09:07 | PCM.OPRPT ---
Urology Urology: [id number] Lithotripsy [facility] Shockwave Operative Report (Standard) Operative Information Date of Procedure: 04/16/25 Pre-Operative Diagnosis: Left renal stones Post-Operative Diagnosis: Same Surgery/Procedure Performed: Left renal extracorporeal shockwave lithotripsy vaccine key customer leader: No Type of Anesthesia: General RN Documented Start/Stop Times: Operation Date: 04/16/25 09:10 Case Time Into Pre-Op 04/16/25 07:43 Anesthesia Start 04/16/25 08:55 Into Room 04/16/25 08:55 Out of Pre-Op 04/16/25 08:55 Procedure Start 04/16/25 09:05 Procedure End 04/16/25 09:44 Anesthesia End 04/16/25 09:51 Out of Room 04/16/25 09:51 Into Recovery 04/16/25 09:55 Procedure Start Time: 09:05 Procedure Stop Time: 09:44 Select all DRAINS/GRAFTS/IMPLANTS that apply: None Estimated Blood Loss: <5cc Specimen collected: No Description of surgery: The patient was taken to the operating room and placed on the shockwave lithotripsy table. Anesthesia monitored the head, neck, airway, IV access and vital signs throughout the case. Once anesthesia was appropriately administered, she was positioned so that the stones were easily visualized and accessed by the treatment head. 3000 shocks were applied in total and the stones appeared to be well fragmented at the conclusion of the case. She was awakened and taken to the recovery room in good condition. There were no complications during the procedure. Surgical Findings: 2 left renal stones, good fragmentation at the conclusion of the case Complications Complications: No Admit VTE Documentation VTE Present on Admission: Yes VTE Mechan Device Prophylaxis: SCD's VTE Pharm Prophylaxis ordered?: No Reason prophylaxis not ordered: Treatment Not Indicated
--- NOTE | 2025-04-16 09:59 | POSTOP.ANE_ITS ---
Anesthesia: Postop Eval I
--- NOTE | 2025-04-16 09:59 | PCM.POST.ANE ---
Anesthesia: Postop Eval I Current Vital Signs Temperature: 97.5 F Pulse Rate: 82 Blood Pressure: 139/80 Respiratory Rate: 16 Pulse Ox: 100 Oxygen Delivery Method: Room Air Assessment Airway patent: Yes Spontaneous unlabored respirations: Yes Mental status: Awake and Calm nausea: No Vomiting: No Anesthesia Complication: No Fluid Hydration Crystalloid volume administer (ml): 800 Total IV fluid infused: 800 Progress Note Anesthesia document: Postop Eval 1 completed: Yes
--- NOTE | 2025-04-16 11:48 | POSTOPAN2_ITS ---
Anesthesia Postop Eval I Sum
--- NOTE | 2025-04-16 11:48 | PCM.POSTANE2 ---
Anesthesia Postop Eval I Sum Postop Eval Completion status Anesthesia document: Postop Eval 1 completed: Yes Anesthesia Postop Eval I Summary Anesthesia Postop Eval I Summary: Anesthesia Postop Eval I: Assessment Summary Airway patent Yes 04/16/25 10:00 EDITORIAL MANAGER.SKOBY Spontaneous unlabored Yes 04/16/25 10:00 EDITORIAL MANAGER.MARÍA respirations Mental status Awake,Calm 04/16/25 10:00 EDITORIAL MANAGER.SKOBElmer nausea No 04/16/25 10:00 EDITORIAL MANAGER.AMIOBElmer Vomiting No 04/16/25 10:00 EDITORIAL MANAGER.AMIOBElmer Anesthesia Postop Eval I: Fluid Summary Crystalloid volume administer 800 04/16/25 10:00 EDITORIAL MANAGER.SKOBY (ml) Colloids volume administered ( ml) Blood Product volume administered (ml) Total IV fluid infused 800 04/16/25 10:00 EDITORIAL MANAGER.MARÍA Anesthesia Postop Eval I: Summary Notes Anesthesia Complication No 04/16/25 10:00 EDITORIAL MANAGER.MARÍA Anesthesia Complication Comment: Post-operative progress note Anesthesia: Postop Eval II Evaluation Mental status: Awake and Calm Pain Level: 1 nausea: No Vomiting: No Complications Anesthesia Complication: No
== END 2025-04-16 11:05 | disposition home or self-care (01) ==
LOC: SDC 07:30 → AC 07:31
PROVIDERS: PCP Nurse Practitioner Primary Care; Referring Provider Urology; Visit Provider Urology
PROC: (CPT 50590; principal; 2025-04-16 09:00)
DX: N20.0 Calculus of kidney (principal); Z87.891 Personal history of nicotine dependence; I10 Essential (primary) hypertension; N39.3 Stress incontinence (female) (male); Z79.899 Other long term (current) drug therapy
CPT/HCPCS: 50590; 00873; 36415; 80048; 85025; J0744

== ENCOUNTER → 2025-04-29 | Outpatient (CLI) | payer OTHER, SELFPAY ==
--- NOTE | 2025-04-29 10:39 | RAD_ITS ---
PROCEDURE: ABDOMEN SINGLE VIEW 04/29/2025 REASON FOR EXAM: KIDNEY STONE TECHNIQUE: Procedure Code: RADABD Modality: DX Procedure: ABDOMEN SINGLE VIEW COMPARISON: Prior CT scan dated April 09, 2000. FINDINGS: Bowel gas: Moderate amount of fecal material is seen in the colon. Calcifications: No suspicious calcifications. Bones: The bones are unremarkable. Other: RAD/Abdomen Single View IMPRESSION: No abnormal calcification is seen. Reading Location: [place] [id number]
== END | disposition home or self-care (01) ==
LOC: MTRAD 10:38
PROVIDERS: PCP Nurse Practitioner Primary Care; Referring Provider Urology; Visit Provider Urology
DX: N20.0 Calculus of kidney (principal)
CPT/HCPCS: 74018

== ENCOUNTER → 2025-05-21 | Outpatient (CLI) | payer OTHER, SELFPAY ==
--- NOTE | 2025-05-21 18:42 | CT_ITS ---
EXAM: CT Abdomen and Pelvis Without Intravenous Contrast CLINICAL INDICATION: LEFT FLANK PAIN, STONES TECHNIQUE: Axial computed tomography images of the abdomen and pelvis without intravenous contrast. This CT exam was performed using one or more of the following dose reduction techniques: automated exposure control, adjustment of the mA and/or kV according to patient size, and/or use of iterative reconstruction technique. RADIATION DOSE: CTDIvol = 7.14 mGy, DLP = 360.15 mGy-cm COMPARISON: CT Abdomen Pelvis dated 04/09/2025 FINDINGS: LUNG BASES: Left basilar atelectasis or scarring. ABDOMEN: LIVER: Mild hepatomegaly. GALLBLADDER AND BILE DUCTS: Cholecystectomy. No ductal dilation. PANCREAS: Unremarkable. No ductal dilation. SPLEEN: Unremarkable. No splenomegaly. ADRENALS: Unremarkable. No mass. KIDNEYS AND URETERS: 3 mm calculus of the inferior left renal pelvis. No hydronephrosis. Multiple punctate calculi in the left hemipelvis are thought to be phleboliths. STOMACH AND BOWEL: Unremarkable. No obstruction. No mucosal thickening. PELVIS: APPENDIX: No findings to suggest acute appendicitis. BLADDER: Unremarkable. No stones. REPRODUCTIVE: Unremarkable as visualized. ABDOMEN and PELVIS: INTRAPERITONEAL SPACE: Unremarkable. No free air. No significant fluid collection. BONES/JOINTS: Moderate endplate degenerative changes and disc degeneration of L5-S1. No acute fracture. No dislocation. SOFT TISSUES: Unremarkable. VASCULATURE: Unremarkable. No abdominal aortic aneurysm. LYMPH NODES: Unremarkable. No enlarged lymph nodes. CT/Abdomen/Pelvis without Cont IMPRESSION: Left nephrolithiasis without hydronephrosis. Reading Location: [id number]
--- OUTSIDE RECORDS SUMMARY | 2025-05-21 18:50 | XMS RPT_ITS | CCD ---
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 Admission Attending Provider: Marialuisa Gottlieb Primary Care Provider: Rand Barboza NP Instructions Print Language: Kinyarwanda Discharge Orders/Prescription s Prescriptions: New oxycodone-acetamino phen 5-325 mg tablet 1 tab PO Q8H PRN (Reason: pain) 3 Days Qty: 10 0RF ondansetron 4 mg tablet,disintegrati ng 4 mg PO Q8H PRN (Reason: nausea and vomiting) Qty: 10 0RF nitrofurantoin monohyd/m-cryst [Macrobid] 100 mg capsule 100 mg PO BID Qty: 6 0RF Rx Instructions: must administer with a meal/food Continued lorazepam [Ativan] 0.5 mg tablet 0.5 mg PO QDAY PRN (Reason: anxiety) losartan 50 mg tablet 50 mg PO QDAY biotin 10,000 mcg capsule 10,000 mcg PO DAILY magnesium 250 mg tablet 250 mg PO QDAY escitalopram oxalate 20 mg tablet 20 mg PO QDAY zolpidem [Ambien] 10 MG tablet 10 mg PO QHS Referrals / Follow Up: Rand Barboza NP, SECURITY INCIDENT HANDLER-C [Primary Care Provider, Medical] Disposition Disposition (needs filled in before D/C Order can be placed): Home, Self Care 04/16/25905 Marialuisa Gottlieb MD CC: SECURITY INCIDENT HANDLER-C Rand Barboza Signed [facility] MR/POSTOP.[facility] 04-16-2025 MR/POSTOP.[facility] Medical Records Department [address] [place] [address] Anesthesia Postop Eval I 04/16/25 0959 MR#: [id number] Acct: [id number] Name: MARTÍNEZ VINCENT SANDOR Rep #: [id number] : 1965 59 From: Yue Kat CRNA PCP: RUSS Rapp Status:REG SDC Y Race: C Location: [place] [address] Anesthesia: Postop Eval I Current Vital Signs Temperature: 97.5 F Pulse Rate: 82 Blood Pressure: 139/80 Respiratory Rate: 16 Pulse Ox: 100 Oxygen Delivery Method: Room Air Assessment Airway patent: Yes Spontaneous unlabored respirations: Yes Mental status: Awake and Calm nausea: No Vomiting: No Anesthesia Complication: No Fluid Hydration Crystalloid volume administer (ml): 800 Total IV fluid infused: 800 Progress Note Anesthesia document: Postop Eval 1 completed: Yes 04/16/25 1000 Date Yue Kat CLINICAL ESTHETICIAN Cosigner Signature: Date CC: Signed Normal [facility] MR/[id number] 04-16-2025 [facility] Medical Records Department [address] [place] [address] Anesthesia Postop Eval II 04/16/25 1148 MR#: [id number] Acct: [id number] Name: MARTÍNEZ VINCENT Rep #: [id number] : 1965 59 From: Newton Barksdale MD PCP: RUSS Rapp Status:[facility] Y Race: C Location: [facility] Anesthesia Postop Eval I Sum Postop Eval Completion status Anesthesia document: Postop Eval 1 completed: Yes Anesthesia Postop Eval I Summary Anesthesia Postop Eval I Summary: Anesthesia Postop Eval I: Assessment Summary Airway patent Yes 04/16/25 10:00 CLINICAL ESTHETICIANJOYCE Spontaneous unlabored Yes 04/16/25 10:00 CLINICAL ESTHETICIANJOYCE respirations Mental status Awake,Calm 04/16/25 10:00 CLINICAL ESTHETICIAN.MARÍA nausea No 04/16/25 10:00 CLINICAL ESTHETICIAN.MARÍA Vomiting No 04/16/25 10:00 CLINICAL ESTHETICIAN.MARÍA Anesthesia Postop Eval I: Fluid Summary Crystalloid volume administer 800 04/16/25 10:00 CLINICAL ESTHETICIANJOYCE (ml) Colloids volume administered ( ml) Blood Product volume administered (ml) Total IV fluid infused 800 04/16/25 10:00 CLINICAL ESTHETICIANJOYCE Anesthesia Postop Eval I: Summary Notes Anesthesia Complication No 04/16/25 10:00 FELIPE Anesthesia Complication Comment: Post-operative progress note Anesthesia: Postop Eval II Evaluation Mental status: Awake and Calm Pain Level: 1 nausea: No Vomiting: No Complications Anesthesia Complication: No 04/16/25 1149 Date Newton Barksdale MD Cosigner Signature: Date CC: Signed Normal [facility] Operative Reporton 5 Operative Report [facility] Medical Records Department [address] [place] [address] Operative Report 04/16/25906 MR#: [id number] Acct: [id number] Name: MARTÍNEZ VINCENT Rep #: [id number] : 1965 59 From: Marialuisa Gottlieb MD PCP: RUSS Rapp Status:[facility] Location: [place] [address] Urology Urology: [id number] Lithotripsy [facility] Shockwave Operative Report (Standard) Operative Information Date of Procedure: 04/16/25 Pre-Operative Diagnosis: Left renal stones Post-Operative Diagnosis: Same Surgery/Procedure Performed: Left renal extracorporeal shockwave lithotripsy shipping helper: No Type of Anesthesia: General RN Documented Start/Stop Times: Operation Date: 04/16/25 09:10 Case Time Into Pre-Op 04/16/25 07:43 Anesthesia Start 04/16/25 08:55 Into Room 04/16/25 08:55 Out of Pre-Op 04/16/25 08:55 Procedure Start 04/16/25 09:05 Procedure End 04/16/25 09:44 Anesthesia End 04/16/25 09:51 Out of Room 04/16/25 09:51 Into Recovery 04/16/25 09:55 Procedure Start Time: 09:05 Procedure Stop Time: 09:44 Select all DRAINS/GRAFTS/IMPLA NTS that apply: None Estimated Blood Loss: <5cc Specimen collected: No Description of surgery: The patient was taken to the operating room and placed on the shockwave lithotripsy table. Anesthesia monitored the head, neck, airway, IV access and vital signs throughout the case. Once anesthesia was appropriately administered, she was positioned so that the stones were easily visualized and accessed by the treatment head. 3000 shocks were applied in total and the stones appeared to be well fragmented at the conclusion of the case. She was awakened and taken to the recovery room in good condition. There were no complications during the procedure. Surgical Findings: 2 left renal stones, good fragmentation at the conclusion of the case Complications Complications: No Admit VTE Documentation VTE Present on Admission: Yes VTE Mechan Device Prophylaxis: SCD's VTE Pharm Prophylaxis ordered?: No Reason prophylaxis not ordered: Treatment Not Indicated 04/16/25 1023 Cosigner Signature (if applicable): CC: RUSS Barboza; Dr. Marialuisa Gottlieb MD Signed [facility] MR/PAT.[facility] 04-10-2025 MR/PAT.[facility] Medical Records Department [address] [place] [address] PAT - Anesthesia 04/10/25 1651 MR#: [id number] Acct: [id number] Name: MARTÍNEZ VINCENT Rep #: [id number] : 1965 59 From: Newton Barksdale MD PCP: RUSS Rapp Status:PRE [facility] Y Race: C Location: [facility] Pre-Assessment Diagnosis/Proposed Procedure Planned Operative Procedure(s): LEFT ESWL Anesthesia History Anesthesia History - hide buyer: Anesthesia History - hide buyer Hx Hospitalization No 04/10/25 12:47 Any Problems With Anesthesia Yes: PONV 04/10/25 12:47 Cholinesterase deficiency No 04/10/25 12:47 You/Your Family Experience No 04/10/25 12:47 fever (hyperthermia) with Relationship Recent Exposure to Contagious No 01/08/19 11:23 Disease Does patient have nerve No 04/10/25 12:47 stimulator Patient instructed to have device shut off --Does patient have Pacemaker or ICD? When Was Last Pacemaker Check QUESTION #4 FULL TEXT: You/Your Family Experience fever (hyperthermia) with Anesthesia Last Oral Intake Last Oral intake: Last Oral Intake NPO since Meds taken in AM with sips of water? Meds patient instructed to take am of surgery PONV PONV - hide buyer: PONV - hide buyer Female Yes 04/10/25 12:47 HX of Motion Sickness No 04/10/25 12:47 HX of N/V After Surgery Yes 04/10/25 12:47 Non-Smoker Yes 04/10/25 12:47 Duration of Surgery greater Yes 04/10/25 12:47 than 60 minutes Number of Risk Factors 4 04/10/25 12:47 PONV Score Severe Risk 04/10/25 12:47 Height Weight Height Weight: Anesthesia: Height Weight Height 5 ft 3 in 03/16/25 13:17 Respiratory Assessment Respiratory Assessment - hide buyer: Respiratory Tract Infection Hx - hide buyer Hx Respiratory Tract Infection No 04/10/25 12:47 STOP Sleep Apnea STOP Sleep Apnea - hide buyer: STOP Sleep Apnea - hide buyer Hx Hypertension Yes: CONTROLLED WITH MED 04/10/25 12:47 Hx Sleep Apnea No 04/10/25 12:47 CPAP No 01/08/19 13:59 BIPAP Do you snore loudly (louder No 04/10/25 12:47 than talking or can be heard Do you often feel tired/ No 04/10/25 12:47 fatigued/ sleepy during daytime? Has anyone observed you stop No 04/10/25 12:47 breathing during sleep? STOP Results Negative 04/10/25 12:47 QUESTION #5 FULL TEXT : Do you snore loudly (louder than talking or can be heard through closed doors)? 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 Specify any problems Hx of Preganancy in last 3 No 04/10/25 12:47 Months Nurse Filling Out Transfusion DSCHRIBER 04/10/25 12:47 Questions: Date: 04/10/25 04/10/25 12:47 Time: 12:48 04/10/25 12:47 Patient unable to answer at this time (ie. confused, unrespo /Reproduct ion History /Reproduct caitlin History - hide buyer: /Reproduct caitlin Hx- hide buyer Hx Now No 04/10/25 12:47 Gestational Age (in weeks): EDC: Hx Hx Para Hx Section SAB No 04/10/25 12:47 [facility] Medical History (Updated 04/10/25 @ 12:55 by Amarilys Quinn) Wears glasses Post-menopausal Anxiety Alcohol use Back pain Blackout Heartburn Former smoker Shortness of breath on exertion Restless legs History of stress test Cardiology follow-up encounter History of irregular heartbeat Neuropathy Hypertension Arthritis Home Medications ???Medication ???Instructions ???Recorded ???Last Taken ???Type zolpidem 10 mg tablet (Ambien) 10 mg PO QHS sleep. 10/08/1701/04 History lorazepam 0.5 mg tablet (Ativan) 0.5 mg PO QDAY PRN anxiety 5 Unknown History biotin 10,000 mcg capsule 10,000 mcg PO DAILY 04/08/25 Unkno wn History escitalopram oxalate 20 mg tablet 20 mg PO QDAY 04/08/25 Unknown Hi story losartan 50 mg tablet 50 mg PO QDAY 04/08/25 Unknown His tory magnesium 250 mg tablet 250 mg PO QDAY more content not included)... Normal [facility] Absolute lymphocyte countOrd ered By: Rimma Robb on 04-09-2025 Lymphocytes Auto (Unsp spec) [#/Vol] 1.18 10*3/uL 0.83-4.51 [facility] Absolute neutrophil countOrd ered By: Rimma Robb on 04-09-2025 Neutrophils (Bld) [#/Vol] 5.8 10*3/uL 2.0-7.7 [facility] Anion gap in Serum or Plasma Ordered By: Rimma Robb on 04-09-2025 Anion gap [Moles/Vol] 11 mmol/L 5-15 [facility] Automated lymphocyte count a s percentage of total leukocytesOrdered By: Rimma Robb on 04-09-2025 Lymphocytes/100 WBC Auto (Unsp spec) 15.4 % Low 19-41 [facility] BUN/creatinine ratioOrdered By: Rimma Robb on 04-09-2025 Urea nitrogen/Creatinine [Mass ratio] 22.3 mg/mg High 04-06 [facility] Basic Metabolic Profile (BMP )on 04-09-2025 BUN/CRE 22.3 RATIO High 04-06 [facility] Comment on above: Performed By: #### L 501.4021, L500.2500, L100.0100 #### [facility] [address] [place], [address] Calcium [Mass/Vol] 9.5 mg/dL Normal 7.6-11.0 [facility] Comment on above: Performed By: #### L 501.4021, L500.2500, L100.0100 #### [facility] [address] [place], [address] Chloride [Moles/Vol] 107 mmol/L Normal 98-108 [facility] Comment on above: Performed By: #### L 501.4021, L500.2500, L100.0100 #### [facility] [address] [place], [address] CO2 [Moles/Vol] 22.8 mmol/L Normal 21.0-32.0 [facility] Comment on above: Performed By: #### L 501.4021, L500.2500, L100.0100 #### [facility] [address] [place], [address] Creatinine [Mass/Vol] 0.60 mg/dL Low 0.70-1.20 [facility] Comment on above: Performed By: #### L 501.4021, L500.2500, L100.0100 #### [facility] [address] [place], [address] ECRCL 95.18 ml/min Normal 50-250 [facility] Comment on above: Performed By: #### L 501.4021, L500.2500, L100.0100 #### [facility] [address] [place], [address] GAP 11 Normal 5-15 [facility] Comment on above: Performed By: #### L 501.4021, L500.2500, L100.0100 #### [facility] [address] [place], [address] GFR/1.73 sq M.predicted among non-blacks MDRD (S/P/Bld) [Vol rate/Area] 103 mL/min/{1.73_m2} Normal >60 [facility] Comment on above: Result Comment: mL/m in/1.73m2 CKD-EPI Creatinine Equation (2020) Performed By: #### L 501.4021, L500.2500, L100.0100 #### [facility] [address] [place], [address] Glucose [Mass/Vol] 86 mg/dL Normal 70-99 [facility] Comment on above: Performed By: #### L 501.4021, L500.2500, L100.0100 #### [facility] [address] [place], [address] Potassium [Moles/Vol] 3.6 mmol/L Normal 3.3-5.1 [facility] Comment on above: Performed By: #### L 501.4021, L500.2500, L100.0100 #### [facility] [address] [place], [address] Sodium [Moles/Vol] 140 mmol/L Normal 133-145 [facility] Comment on above: Performed By: #### L 501.4021, L500.2500, L100.0100 #### [facility] [address] [place], [address] Urea nitrogen [Mass/Vol] 13 mg/dL Normal 4-19 [facility] Comment on above: Performed By: #### L 501.4021, L500.2500, L100.0100 #### [facility] [address] [place], [address] Basophil percentageOrdered B y: Rimma Robertazac on 04-09-2025 Basophils/100 WBC (Bld) 0.5 % 0-1 [facility] CBC W/Diff, Automatedon 03-19 Absolute Lymph 1.18 X10 3/uL Normal 0.83-4.51 [facility] Comment on above: Performed By: #### L 501.4021, L500.2500, L100.0100 #### [facility] [address] [place], [address] Absolute Neut 5.8 X10 3/uL Normal 2.0-7.7 [facility] Comment on above: Performed By: #### L 501.4021, L500.2500, L100.0100 #### [facility] [address] [place], [address] Basophils/100 WBC (Bld) 0.5 % Normal 0-1 [facility] Comment on above: Performed By: #### L 501.4021, L500.2500, L100.0100 #### [facility] [address] [place], [address] Eosinophils/100 WBC (Bld) 0.4 % Normal 0-5 [facility] Comment on above: Performed By: #### L 501.4021, L500.2500, L100.0100 #### [facility] [address] [place], [address] Erythrocyte distribution width (RBC) [Ratio] 11.9 % Normal 11.6-14.6 [facility] Comment on above: Performed By: #### L 501.4021, L500.2500, L100.0100 #### [facility] [address] [place], [address] Hematocrit (Bld) [Volume fraction] 42.0 % Normal 37-47 [facility] Comment on above: Performed By: #### L 501.4021, L500.2500, L100.0100 #### [facility] [address] [place], [address] Hemoglobin (Bld) [Mass/Vol] 14.3 g/dL Normal 12.0-15.0 [facility] Comment on above: Performed By: #### L 501.4021, L500.2500, L100.0100 #### [facility] [address] [place], [address] IG% 0.700 Normal 0.0-0.9 [facility] Comment on above: Result Comment: IG% - Immature Granulocytes (promyelocytes, myelocytes and metamyelocytes) > 1% indicates that a LEFT SHIFT is Present. Performed By: #### L 501.4021, L500.2500, L100.0100 #### [facility] [address] [place], [address] Lymphocytes/100 WBC (Bld) 15.4 % Low 19-41 [facility] Comment on above: Performed By: #### L 501.4021, L500.2500, L100.0100 #### [facility] [address] [place], [address] MCH (RBC) [Entitic mass] 30.2 pg Normal 27.0-32.0 [facility] Comment on above: Performed By: #### L 501.4021, L500.2500, L100.0100 #### [facility] [address] [place], [address] MCHC (RBC) [Mass/Vol] 34.0 g/dL Normal 32-36 [facility] Comment on above: Performed By: #### L 501.4021, L500.2500, L100.0100 #### [facility] [address] [place], [address] MCV (RBC) [Entitic vol] 88.8 fL Normal 81-99 [facility] Comment on above: Performed By: #### L 501.4021, L500.2500, L100.0100 #### [facility] [address] [place], [address] Monocytes/100 WBC (Bld) 7.8 % Normal 0-10 [facility] Comment on above: Performed By: #### L 501.4021, L500.2500, L100.0100 #### [facility] [address] [place], [address] Neutrophils/100 WBC (Bld) 75.2 % High 47-70 [facility] Comment on above: Performed By: #### L 501.4021, L500.2500, L100.0100 #### [facility] [address] [place], [address] Nucleated RBC (Bld) [#/Vol] 0 10*3/uL Normal 0-5 [facility] Comment on above: Performed By: #### L 501.4021, L500.2500, L100.0100 #### [facility] [address] [place], [address] Platelet mean volume (Bld) [Entitic vol] 9.8 fL Normal 6.2-12.0 [facility] Comment on above: Performed By: #### L 501.4021, L500.2500, L100.0100 #### [facility] [address] [place], [address] Platelets (Bld) [#/Vol] 255 10*3/uL Normal 150-450 [facility] Comment on above: Performed By: #### L 501.4021, L500.2500, L100.0100 #### [facility] [address] [place], [address] RBC (Bld) [#/Vol] 4.73 10*6/uL Normal 4.2-5.4 [facility] Comment on above: Performed By: #### L 501.4021, L500.2500, L100.0100 #### [facility] [address] [place], [address] RDW SD 38.7 fl Normal 35.1-43.9 [facility] Comment on above: Performed By: #### L 501.4021, L500.2500, L100.0100 #### [facility] [address] [place], [address] WBC (Bld) [#/Vol] 7.7 10*3/uL Normal 4.4-11.0 [facility] Comment on above: Performed By: #### L 501.4021, L500.2500, L100.0100 #### [facility] [address] [place], [address] CTA Chst, Abd, Pel W and/or WOon 04-09-2025 CTA Chst, Abd, Pel W and/or WO [facility] Imaging Services [address] [place] [address] CTA Chst, Abd, Pel W and/or WO MR#: [id number] Acct: [id number] Name: MARTÍNEZ VINCENT Rep #: [id number] : 1965 F 59 From: Blaine Solano MD PCP: Rand Barboza SECURITY INCIDENT HANDLERDeric Status: [facility] ER Study: CTA Chst, Abd, Pel W and/or WO Date of Exam: Exam# [id number] Ordering Dr: Rimma Robb DO PROCEDURE: CTA CHST, ABD, PEL W AND/OR WO 04/09/2025 REASON FOR EXAM: CHEST PAIN TECHNIQUE: Procedure Code: CTCTA.CHAP.2 Modality: CT Procedure: CTA CHST, ABD, PEL W AND/OR WO Coronal and Sagittal reconstruction series were provided. One or more dose reduction techniques were used (e.g., Automated exposure control, adjustment of the mA and/or kV according to patient size, use of iterative reconstruction technique. COMPARISON: 03/27/2025. FINDINGS: CHEST: The peripheral soft tissues are unremarkable. The thyroid is unremarkable. Normal caliber esophagus. No evidence of aortic dissection or aneurysm. The origins of the great vessels are unremarkable. Normal caliber thoracic aorta. The heart is borderline enlarged. No pericardial effusion. No pulmonary artery filling defects. The lungs are clear. ABDOMEN AND PELVIS: The peripheral soft tissues unremarkable. Disc space narrowing and disc vacuum phenomenon at L5-S1. Normal caliber abdominal aorta. No evidence aortic dissection or aneurysm. The celiac trunk, superior mesenteric artery, and inferior mesenteric artery unremarkable. No suspicious lymphadenopathy. The liver is hypodense suspicious for steatosis. Surgically absent gallbladder. Pancreas, spleen, and adrenals are unremarkable. Symmetric enhancement of the bilateral kidneys. Small left kidney lower pole nonobstructive calculi. Bilateral extrarenal pelvises. No hydroureter. The urinary bladder is unremarkable. Normal caliber large and small bowel. No surrounding inflammatory changes. CT/CTA Chst, Abd, Pel W and/or WO IMPRESSION: No evidence of aortic dissection or aneurysm. Left kidney nonobstructive nephrolithiasis. No acute abnormalities of the abdomen or pelvis. Ancillary findings as above. Reading Location: [address] CC: RUSS Barboza; Dr. Rimma Robb DO Bean Picker Machine Operator: Signed Normal [facility] Carbon dioxide, total [Moles /volume] in Central venous bloodOrdered By: Rimma Robb on 04-09-2025 CO2 [Moles/Vol] 22.8 mmol/L 21.0-32.0 [facility] Chloride assayOrdered By: Sukhi Robb on 04-09-2025 Chloride [Moles/Vol] 107 mmol/L 98-108 [facility] Emergency Department Summary on 04-09-2025 Emergency Department Summary [facility] Medical Records Department [address] [place] [address] Emergency Department Summary 04/09/25 MR#: [id number] Acct: [id number] Name: MARTÍNEZ VINCENT Rep #: [id number] : 1965 59 From: Rimma Robb DO PCP: YAQUELIN RappC Status:REG ER Location: ED HPI History of Present Illness Chief Complaint: Chest Pain Informant: patient Narrative Narrative: Patient is a 59-year-old female with history of kidney stones and hypertension presenting with left flank pain is rating to her back. She notes for the past month she has been having intermittent left flank pain and has 2 kidney stones on that side. He is due to have lithotripsy this coming week on the (1 week from now). She follows with Dr. Gottlieb. She states about 30 to 40 minutes prior to arrival she started to have pain in her left lower back/flank area but then started radiate to the center of her chest which is very abnormal for her. The pain was quite severe. She did take one of her pain pills however given the severity and location of the pain which she is never had before she came to the ER for further evaluation. By the time I read the patient she notes that she started to feel better and her pain is resolving. She notes the past few days she has been feeling tired and not a lot of energy but attributes that to dealing with a kidney stone. She denies any swelling of her legs. She denies any history of blood clots or DVT. She denies associate numbness or tingling. States years ago she had some episodes of palpitations and currently feels with her heart is pounding but denies any other complaints or concerns reported at this time. [facility] Medical History Stress incontinence Neuropathy Hives Hypertension Chronic headaches Gallstones Emotional problems UTI (urinary tract infection) Back problem Arthritis Allergies Home Medications ???Medication ???Instructions ???Recorded ???Last Taken ???Type zolpidem 10 mg tablet (Ambien) 10 mg PO QHS sleep. 10/08/1701/04 History lorazepam 0.5 mg tablet (Ativan) 0.5 mg PO QDAY PRN 03/16/25 Unknow n History biotin 10,000 mcg capsule mcg PO 04/08/25 Unknown History escitalopram oxalate 20 mg tablet 20 mg PO QDAY 04/08/25 Unknown Hi story losartan 50 mg tablet 50 mg PO QDAY 04/08/25 Unknown His tory magnesium 250 mg tablet 250 mg PO QDAY 04/08/25 Unknown Hi story oxycodone-acetamino phen 5 mg-325 1 tab PO TID PRN pain 3 days #10 1 Unknown Rx mg tablet (Percocet) tabs Allergy/AdvReac Type Severity Reaction Status Date / Time Penicillins Allergy Rash Verified 04/09/25 11:32 Family History Other Anxiety Hypertension Surgical History H/O: hysterectomy History of appendectomy S/P cholecystectomy Previous back surgery Social History Smoking Status: Former smoker alcohol intake: current details: occasionally substance use type: does not use what type of physical activity do you participate in: walking and other frequency: daily do you feel safe at home: Yes ROS ROS ED Constitutional Constitutional ED: Reports sweats; Denies chills or fever(s) Cardiovascular Cardiovascular: Reports as per HPI and chest pain Respiratory/Chest Respiratory/Chest: Denies cough Gastrointestinal Gastrointestinal: Reports nausea and vomiting; Denies abdominal pain Musculoskeletal Musculoskeletal: Reports back pain Integumentary Denies rash Neurologic Neurologic: Denies weakness Hematologic/Lymphat ic Hematologic/Lymphat ic: Denies easy bleeding or easy bruising EXAM Physical Exam Const Vital Signs: 04/09/25 11:33 04/09/25 12:32 04/09/25 13:00 Temperature 97.2 F L Temperature Source Temporal Pulse Rate 71 68 68 Respiratory Rate 14 16 16 Blood Pressure 150/84 H 132/80 H 138/80 H Blood Pressure Mean 106 97 99 Pulse Ox 98 98 100 Oxygen Delivery Method Room Air Room Air 04/09/25 14:00 04/09/25 14:03 04/09/25 15:00 Temperature Temperature Source Pulse Rate 74 67 Respiratory Rate 18 16 Blood Pressure 134/72 H 128/78 H Blood Pressure Mean 92 94 Pulse Ox 100 98 Oxygen Delivery Method Room Air Room Air Room Air 04/09/25 16:00 04/09/25 17:00 Temperature Temperature Source Pulse Rate 66 70 Respiratory Rate 12 16 Blood Pressure 125/69 H 127/70 H Blood Pressure Mean 87 89 Pulse Ox 99 98 Oxygen Delivery Method Room Air Positive well nourished and well developed General Appearance ED: well developed and NAD HEENT Reports moist mucous membranes Neck sup (more content not included)... Normal [facility] Eosinophil percentageOrdered By: Rimma Robb on 04-09-2025 Eosinophils/100 WBC (Bld) 0.4 % 0-5 [facility] Erythrocyte distribution wid th ratioOrdered By: Rimma Robb on 04-09-2025 Erythrocyte distribution width (RBC) [Ratio] 11.9 % 11.6-14.6 [facility] Erythrocyte distribution wid th standard deviationOrdered By: Rimma Robb on 04-09-2025 Erythrocyte distribution width (RBC) [Ratio] 38.7 fl 35.1-43.9 [facility] Glomerular filtration rate ( GFR) estimation/1.73 sq m using serum, plasma, or whole bOrdered By: Rimma Robb on 04-09-2025 GFR/1.73 sq M.predicted among non-blacks MDRD (S/P/Bld) [Vol rate/Area] 103 mL/min/{1.73_m2} >60 [facility] Comment on above: mL/min/1.73m2 CKD-EP I Creatinine Equation (2020) Hematocrit Auto (Bld) [Volum e fraction]Ordered By: Rimma Robb on 04-09-2025 Hematocrit (Bld) [Volume fraction] 42.0 % 37-47 [facility] Hemoglobin measurementOrdere d By: Rimma Robb on 04-09-2025 Hemoglobin (Bld) [Mass/Vol] 14.3 g/dL 12.0-15.0 [facility] Immature granulocytes/100 WB C Auto (Bld)Ordered By: Rimma Robb on 04-09-2025 Immature granulocytes/100 WBC (Bld) 0.700 % 0.0-0.9 [facility] Comment on above: IG% - Immature Granu locytes (promyelocytes, myelocytes and metamyelocytes) > 1% indicates that a LEFT SHIFT is Present. L501.4021on 04-09-2025 Trop T High Sen 6 ng/L Normal <=14 [facility] Comment on above: Performed By: #### L 501.4021, L500.2500, L100.0100 #### [facility] [address] [place], [address] MCV (mean corpuscular volume ) determinationOrdered By: Rimma Robb on 04-09-2025 MCV (RBC) [Entitic vol] 88.8 fL 81-99 [facility] Mean corpuscular hemoglobin (MCH) determinationOrdered By: Rimma Robb on 04-09-2025 MCH (RBC) [Entitic mass] 30.2 pg 27.0-32.0 [facility] Mean corpuscular hemoglobin concentration (MCHC) determinationOrdered By: Rimma Robb on 04-09-2025 MCHC (RBC) [Mass/Vol] 34.0 g/dL 32-36 [facility] Mean platelet volume determi nationOrdered By: Rimma Robb on 04-09-2025 Platelet mean volume (Bld) [Entitic vol] 9.8 fL 6.2-12.0 [facility] Monocyte percentageOrdered B y: Rimma oRbb on 04-09-2025 Monocytes/100 WBC (Bld) 7.8 % 0-10 [facility] Neutrophil percentageOrdered By: Rimma Robb on 04-09-2025 Neutrophils/100 WBC (Bld) 75.2 % High 47-70 [facility] Nucleated red blood cell per centageOrdered By: Rimma Robb on 04-09-2025 Nucleated RBC/100 WBC (Bld) [Ratio] 0 % 0-5 [facility] Platelet countOrdered By: Sukhi Robb on 04-09-2025 Platelets (Bld) [#/Vol] 255 10*3/uL 150-450 [facility] Potassium measurement (mass/ volume)Ordered By: Rimma Robb on 04-09-2025 Potassium (Unsp spec) [Mass/Vol] 3.6 mmol/L 3.3-5.1 [facility] RBC Auto (Bld) [#/Vol]Ordere d By: Rimma Robb on 04-09-2025 RBC (Bld) [#/Vol] 4.73 10*6/uL 4.2-5.4 [facility] Serum creatinine measurement (mass/volume)Ordered By: Rimma Robb on 04-09-2025 Creatinine [Mass/Vol] 0.60 mg/dL Low 0.70-1.20 [facility] Serum glucose measurement (m ass/volume)Ordered By: Rimma Robb on 04-09-2025 Glucose [Mass/Vol] 86 mg/dL 70-99 [facility] Serum or plasma calcium stacy urement (mass/volume)Ordered By: Rimma Robb on 04-09-2025 Calcium [Mass/Vol] 9.5 mg/dL 7.6-11.0 [facility] Serum or plasma urea nitroge n measurement (mass/volume)Ordered By: Rimma Robb on 04-09-2025 Urea nitrogen [Mass/Vol] 13 mg/dL 4-19 [facility] Sodium levelOrdered By: Yomaira Robb on 04-09-2025 Sodium [Moles/Vol] 140 mmol/L 133-145 [facility] Troponin T HS 2 HRon 025 Trop T High Sen < 6 Normal <=14 [facility] Comment on above: Performed By: #### L 499.0042 #### [facility] [address] [place], [place], [id number] Troponin T HS 4 HRon 025 Trop T High Sen Normal <=14 [facility] Comment on above: Result Comment: Catrachita ridley via OM: Ordered Performed By: #### L 499.0043 #### [facility] [address] [place], [place], [address] Troponin T.cardiac [Mass/vol ume] in Serum or Plasma by High sensitivity methodOrdered By: Rimma Robb on 04-09-2025 Troponin T.cardiac High sensitivity method [Mass/Vol] < 6 ng/L <14 [facility] Troponin T.cardiac High sensitivity method [Mass/Vol] 6 ng/L <14 [facility] White blood cell (WBC) count Ordered By: Rimma Robb on 04-09-2025 WBC (Bld) [#/Vol] 7.7 10*3/uL 4.4-11.0 [facility] Absolute lymphocyte countOrd ered By: Marialuisa Gottlieb on 04-08-2025 Lymphocytes Auto (Unsp spec) [#/Vol] 1.44 10*3/uL 0.83-4.51 [facility] Absolute neutrophil countOrd ered By: Marialuisa Gottlieb on 04-08-2025 Neutrophils (Bld) [#/Vol] 2.9 10*3/uL 2.0-7.7 [facility] Anion gap in Serum or Plasma Ordered By: Marialuisa Gottlieb on 04-08-2025 Anion gap [Moles/Vol] 9 mmol/L 10-30 [facility] Automated lymphocyte count a s percentage of total leukocytesOrdered By: Marialuisa Gottlieb on 04-08-2025 Lymphocytes/100 WBC Auto (Unsp spec) 29.3 % [facility] BUN/creatinine ratioOrdered By: Marialuisa Gottlieb on 04-08-2025 Urea nitrogen/Creatinine [Mass ratio] 19.1 mg/mg 04-06 [facility] Basic Metabolic Profile (BMP )on 04-08-2025 BUN/CRE 19.1 RATIO Normal 04-06 [facility] Comment on above: Performed By: #### L 500.2500, L100.0100 #### [facility] [address] [place], [address] Calcium [Mass/Vol] 9.6 mg/dL Normal 7.6-11.0 [facility] Comment on above: Performed By: #### L 500.2500, L100.0100 #### [facility] [address] [place], [address] Chloride [Moles/Vol] 108 mmol/L Normal 98-108 [facility] Comment on above: Performed By: #### L 500.2500, L100.0100 #### [facility] [address] [place], [address] CO2 [Moles/Vol] 25.3 mmol/L Normal 21.0-32.0 [facility] Comment on above: Performed By: #### L 500.2500, L100.0100 #### [facility] [address] [place], [address] Creatinine [Mass/Vol] 0.60 mg/dL Low 0.70-1.20 [facility] Comment on above: Performed By: #### L 500.2500, L100.0100 #### [facility] [address] [place], [address] GAP 9 Normal 5-15 [facility] Comment on above: Performed By: #### L 500.2500, L100.0100 #### [facility] [address] [place], [address] GFR/1.73 sq M.predicted among non-blacks MDRD (S/P/Bld) [Vol rate/Area] 104 mL/min/{1.73_m2} Normal >60 [facility] Comment on above: Result Comment: mL/m in/1.73m2 CKD-EPI Creatinine Equation (2020) Performed By: #### L 500.2500, L100.0100 #### [facility] [address] [place], [address] Glucose [Mass/Vol] 97 mg/dL Normal 70-99 [facility] Comment on above: Performed By: #### L 500.2500, L100.0100 #### [facility] [address] [place], [address] Potassium [Moles/Vol] 4.5 mmol/L Normal 3.3-5.1 [facility] Comment on above: Performed By: #### L 500.2500, L100.0100 #### [facility] [address] [place], [address] Sodium [Moles/Vol] 142 mmol/L Normal 133-145 [facility] Comment on above: Performed By: #### L 500.2500, L100.0100 #### [facility] [address] [place], [address] Urea nitrogen [Mass/Vol] 11 mg/dL Normal 4-19 [facility] Comment on above: Performed By: #### L 500.2500, L100.0100 #### [facility] [address] [place], [address] Basophil percentageOrdered B y: Marialuisa Gottlieb on 04-08-2025 Basophils/100 WBC (Bld) 1.0 % 0-1 [facility] CBC W/Diff, Automatedon 03-19 Absolute Lymph 1.44 X10 3/uL Normal 0.83-4.51 [facility] Comment on above: Performed By: #### L 500.2500, L100.0100 #### [facility] [address] [place], [address] Absolute Neut 2.9 X10 3/uL Normal 2.0-7.7 [facility] Comment on above: Performed By: #### L 500.2500, L100.0100 #### [facility] [address] [place], [address] Basophils/100 WBC (Bld) 1.0 % Normal 0-1 [facility] Comment on above: Performed By: #### L 500.2500, L100.0100 #### [facility] [address] [place], [address] Eosinophils/100 WBC (Bld) 1.4 % Normal 0-5 [facility] Comment on above: Performed By: #### L 500.2500, L100.0100 #### [facility] [address] [place], [address] Erythrocyte distribution width (RBC) [Ratio] 11.9 % Normal 11.6-14.6 [facility] Comment on above: Performed By: #### L 500.2500, L100.0100 #### [facility] [address] [place], [address] Hematocrit (Bld) [Volume fraction] 40.8 % Normal 37-47 [facility] Comment on above: Performed By: #### L 500.2500, L100.0100 #### [facility] [address] [place], [address] Hemoglobin (Bld) [Mass/Vol] 13.8 g/dL Normal 12.0-15.0 [facility] Comment on above: Performed By: #### L 500.2500, L100.0100 #### [facility] [address] [place], [address] IG% 0.200 Normal 0.0-0.9 [facility] Comment on above: Result Comment: IG% - Immature Granulocytes (promyelocytes, myelocytes and metamyelocytes) > 1% indicates that a LEFT SHIFT is Present. Performed By: #### L 500.2500, L100.0100 #### [facility] [address] [place], [address] Lymphocytes/100 WBC (Bld) 29.3 % Normal 19-41 [facility] Comment on above: Performed By: #### L 500.2500, L100.0100 #### [facility] [address] [place], [address] MCH (RBC) [Entitic mass] 30.1 pg Normal 27.0-32.0 [facility] Comment on above: Performed By: #### L 500.2500, L100.0100 #### [facility] [address] [place], [address] MCHC (RBC) [Mass/Vol] 33.8 g/dL Normal 32-36 [facility] Comment on above: Performed By: #### L 500.2500, L100.0100 #### [facility] [address] [place], [address] MCV (RBC) [Entitic vol] 88.9 fL Normal 81-99 [facility] Comment on above: Performed By: #### L 500.2500, L100.0100 #### [facility] [address] [place], [address] Monocytes/100 WBC (Bld) 8.4 % Normal 0-10 [facility] Comment on above: Performed By: #### L 500.2500, L100.0100 #### [facility] [address] [place], [address] Neutrophils/100 WBC (Bld) 59.7 % Normal 47-70 [facility] Comment on above: Performed By: #### L 500.2500, L100.0100 #### [facility] [address] [place], [address] Nucleated RBC (Bld) [#/Vol] 0 10*3/uL Normal 0-5 [facility] Comment on above: Performed By: #### L 500.2500, L100.0100 #### [facility] [address] [place], [address] Platelet mean volume (Bld) [Entitic vol] 9.8 fL Normal 6.2-12.0 [facility] Comment on above: Performed By: #### L 500.2500, L100.0100 #### [facility] [address] [place], [address] Platelets (Bld) [#/Vol] 244 10*3/uL Normal 150-450 [facility] Comment on above: Performed By: #### L 500.2500, L100.0100 #### [facility] [address] [place], [address] RBC (Bld) [#/Vol] 4.59 10*6/uL Normal 4.2-5.4 [facility] Comment on above: Performed By: #### L 500.2500, L100.0100 #### [facility] [address] [place], [address] RDW SD 38.8 fl Normal 35.1-43.9 [facility] Comment on above: Performed By: #### L 500.2500, L100.0100 #### [facility] [address] [place], [address] WBC (Bld) [#/Vol] 4.9 10*3/uL Normal 4.4-11.0 [facility] Comment on above: Performed By: #### L 500.2500, L100.0100 #### [facility] [address] [place], [address] Carbon dioxide, total [Moles /volume] in Central venous bloodOrdered By: Marialuisa Gottlieb on 04-08-2025 CO2 [Moles/Vol] 25.3 mmol/L 21.0-32.0 [facility] Chloride assayOrdered By: Varun Gottlieb on 04-08-2025 Chloride [Moles/Vol] 108 mmol/L 98-108 [facility] Eosinophil percentageOrdered By: Marialuisa Gottlieb on 04-08-2025 Eosinophils/100 WBC (Bld) 1.4 % 0-5 [facility] Erythrocyte distribution wid th ratioOrdered By: Marialuisa Gottlieb on 04-08-2025 Erythrocyte distribution width (RBC) [Ratio] 11.9 % 11.6-14.6 [facility] Erythrocyte distribution wid th standard deviationOrdered By: Marialuisa Gottlieb on 04-08-2025 Erythrocyte distribution width (RBC) [Ratio] 38.8 fl 35.1-43.9 [facility] Glomerular filtration rate ( GFR) estimation/1.73 sq m using serum, plasma, or whole bOrdered By: Marialuisa Gottlieb on 04-08-2025 GFR/1.73 sq M.predicted among non-blacks MDRD (S/P/Bld) [Vol rate/Area] 104 mL/min/{1.73_m2} >60 [facility] Comment on above: mL/min/1.73m2 CKD-EP I Creatinine Equation (2020) Hematocrit Auto (Bld) [Volum e fraction]Ordered By: Marialuisa Gottlieb on 04-08-2025 Hematocrit (Bld) [Volume fraction] 40.8 % 37-47 [facility] Hemoglobin measurementOrdere d By: Marialuisa Gottlieb on 04-08-2025 Hemoglobin (Bld) [Mass/Vol] 13.8 g/dL 12.0-15.0 [facility] Immature granulocytes/100 WB C Auto (Bld)Ordered By: Marialuisa Gottlieb on 04-08-2025 Immature granulocytes/100 WBC (Bld) 0.200 % 0.0-0.9 [facility] Comment on above: IG% - Immature Granu locytes (promyelocytes, myelocytes and metamyelocytes) > 1% indicates that a LEFT SHIFT is Present. Laboratory - Chemistry and C hemistry - challengeOrdered By: Marialuisa Gottlieb on 04-08-2025 Bilirubin Ql (U) Negative [facility] Glucose Ql (U) Negative [facility] Ketones Ql (U) Negative [facility] pH (U) 7 [pH] [facility] Specific gravity (U) [Rel density] 1.010 [facility] Urobilinogen (U) [Mass/Vol] 0.1254742 mg/dL [facility] - Hematology and Cell countsOrdered By: Marialuisa Gottlieb on 04-08-2025 Hemoglobin Ql (U) Negative [facility] - UrinalysisOrder ed By: Marialuisa Gottlieb on 04-08-2025 Nitrite Ql (U) Negative [facility] Protein Ql (U) Trace [facility] MCV (mean corpuscular volume ) determinationOrdered By: Marialuisa Gottlieb on 04-08-2025 MCV (RBC) [Entitic vol] 88.9 fL 81-99 [facility] MR/Jake 04-08-2025 MR/ELIDA [facility] [address] [facility], [address] [place] [id number] OFFICE VISIT Date of Service: 04/08/25 MR#: [id number] Acct: [id number] Name: MARTÍNEZ VINCENT Rep #: [id number] : 1965 Provider: Dr. Marialuisa Ortega i, MD Age/Sex: 59/F [place] [facility] [place]: Signed Intake Vital Signs 03/16/25 13:17 04/08/25 08:48 Height 5 ft 3 in 5 ft 3 in Weight: 152 lb 152 lb BMI 26.9 26.9 BP 135/82 H 142/98 H Pulse 73 65 Intake Visit Reasons: LITHOTRIPSY/PRE-OP Chief Complaint: preoperation vitis with urine and consent Industrial Cust[employer]ian Required: No Accompanied by: self Is patient in pain?: Yes (back aching) Pain scale (1-10): 2 Allergies Penicillins Allergy (Verified 04/08/25 08:48) Rash Medications ???Medication ???Instructions ???Recorded ???Confirmed ???Type zolpidem 10 mg tablet (Ambien) 10 mg PO QHS sleep. 10/08/1704/08 History lorazepam 0.5 mg tablet (Ativan) 0.5 mg PO QDAY PRN 03/16/25 History biotin 10,000 mcg capsule mcg PO 04/08/25 04/08/25 History escitalopram oxalate 20 mg tablet 20 mg PO QDAY 04/08/25 04/08/25 H istory losartan 50 mg tablet 50 mg PO QDAY 04/08/25 04/08/25 Hi story magnesium 250 mg tablet 250 mg PO QDAY 04/08/25 04/08/25 H istory oxycodone-acetamino phen 5 mg-325 1 tab PO TID PRN pain 3 days #10 1 04/08/25 Rx mg tablet (Percocet) tabs Nurse's Note: overall achy and tired. lower back pain. [facility] Medical History Stress incontinence Neuropathy Hives Hypertension Chronic headaches Gallstones Emotional problems UTI (urinary tract infection) Back problem Arthritis Allergies Surgical History H/O: hysterectomy History of appendectomy S/P cholecystectomy Previous back surgery Family History Other Anxiety Hypertension Social History Smoking Status: Former smoker alcohol intake: current details: occasionally substance use type: does not use what type of physical activity do you participate in: walking and other frequency: daily do you feel safe at home: Yes HPI HPI Urology Chief Complaint: preoperation vitis with urine and consent Details: MARTÍNEZ VINCENT, is a 59 F. The patient is here for preoperative history and physical prior to left renal extracorporal shockwave lithotripsy. There are no new symptoms since the last visit aside from fatigue. She is taking ibuprofen for left sided aching, I requested she change to Tylenol for this week and avoid aspirin. The procedure, recovery and expectations were explained. The risks, benefits and alternatives were discussed, including but not limited to, the risks of anesthesia, bleeding, infection, injury, pain and the need for further intervention. We have discussed the risk of exposure to and/or potential harm posed by the COVID-19 virus with having a surgery/procedure at this time. A joint decision was made at this time to proceed with the scheduled surgery/procedure as indicated on the consent form. ROS Const Constitutional: Positive for fatigue; No chills, fever(s), headache(s), night sweats, weakness, weight change, abnormal sleep pattern or change in appetite Eyes Eyes: No change in vision ENT ENT: No headache(s) or dry mouth Resp Respiratory: No cough, chest congestion, shortness of breath or wheezing Cardio Cardiology: Positive for other (No chest pain.); No shortness of breath, irregular heart rhythm or lightheadedness Gastro GI: Positive for other (No nausea.); No abdominal pain, change in bowel habits, constipation, diarrhea or vomiting Musc Musculoskeletal: Positive for back pain (left side); No abnormal gait Skin Skin: No yellowing of the eye, lesions, itchy eyes, rash or skin ulcer Neuro Neurology: No abnormal gait, confusion, dizziness, weakness, headache(s) or memory loss Psych Psychiatric: No abnormal sleep pattern, No change in appetite, No confusion and No memory loss Endo Endocrine: Positive for fatigue; No increased thirst/drinking or weight change Aller/Imm Allergy/Immunologic : No itchy eyes or wheezing Chuckie/Lymp Hematologic/Lymphat ic: No easy bleeding, easy bruising or enlarged lymph nodes Exam Const General: cooperative, healthy appearing, comfortable and no acute distress [facility] Head: normocephalic and atraumatic Ears: hearing grossly normal bilaterally and external ears normal Nose: external nose normal Eyes General: appearance normal, both eyes and all related structures Neck Neck: normal visual inspection and trachea midline Chest Chest palpation inspection: normal inspection of the chest Resp Effort I (more content not included)... Normal [facility] Mean corpuscular hemoglobin (MCH) determinationOrdered By: Marialuisa Gottlieb on 04-08-2025 MCH (RBC) [Entitic mass] 30.1 pg 27.0-32.0 [facility] Mean corpuscular hemoglobin concentration (MCHC) determinationOrdered By: Marialuisa Gottlieb on 04-08-2025 MCHC (RBC) [Mass/Vol] 33.8 g/dL 32-36 [facility] Mean platelet volume determi nationOrdered By: Marialuisa Gottlieb on 04-08-2025 Platelet mean volume (Bld) [Entitic vol] 9.8 fL 6.2-12.0 [facility] Monocyte percentageOrdered B y: Marialuisa Gottlieb on 04-08-2025 Monocytes/100 WBC (Bld) 8.4 % 0-10 [facility] Neutrophil percentageOrdered By: Marialuisa Gottlieb on 04-08-2025 Neutrophils/100 WBC (Bld) 59.7 % 47-70 [facility] No Panel InformationOrdered By: Marialuisa Gottlieb on 04-08-2025 Urine Leukocytes Negatve [facility] Urine Non-Hemolyzed Blood Negative [facility] Nucleated red blood cell per centageOrdered By: Marialuisa Gottlieb on 04-08-2025 Nucleated RBC/100 WBC (Bld) [Ratio] 0 % 0-5 [facility] Platelet countOrdered By: Varun Gottlieb on 04-08-2025 Platelets (Bld) [#/Vol] 244 10*3/uL 150-450 [facility] Potassium measurement (mass/ volume)Ordered By: Marialuisa Gottlieb on 04-08-2025 Potassium (Unsp spec) [Mass/Vol] 4.5 mmol/L 3.3-5.1 [facility] RBC Auto (Bld) [#/Vol]Ordere d By: Marialuisa Gottlieb on 04-08-2025 RBC (Bld) [#/Vol] 4.59 10*6/uL 4.2-5.4 [facility] Serum creatinine measurement (mass/volume)Ordered By: Marialuisa Gottlieb on 04-08-2025 Creatinine [Mass/Vol] 0.60 mg/dL Low 0.70-1.20 [facility] Serum glucose measurement (m ass/volume)Ordered By: Marialuisa Gottlieb on 04-08-2025 Glucose [Mass/Vol] 97 mg/dL 70-99 [facility] Serum or plasma calcium stacy urement (mass/volume)Ordered By: Marialuisa Gottlieb on 04-08-2025 Calcium [Mass/Vol] 9.6 mg/dL 7.6-11.0 [facility] Serum or plasma urea nitroge n measurement (mass/volume)Ordered By: Marialuisa Gottlieb on 04-08-2025 Urea nitrogen [Mass/Vol] 11 mg/dL 4-19 [facility] Sodium levelOrdered By: Terese Gottlieb on 04-08-2025 Sodium [Moles/Vol] 142 mmol/L 133-145 [facility] White blood cell (WBC) count Ordered By: Marialuisa Gottlieb on 04-08-2025 WBC (Bld) [#/Vol] 4.9 10*3/uL 4.4-11.0 [facility] Abdomen/Pelvis without Conto n 03-27-2025 Abdomen/Pelvis without Cont [facility] Services [address] [place] [id number] Abdomen/Pelvis without Cont MR#: [id number] Acct: [id number] Name: MARTÍNEZ VINCENT Rep #: [id number] : 1965 F 59 From: Corby Hendrickson MD PCP: RUSS Rapp Status: REG CLI Study: Abdomen/Pelvis without Cont Date of Exam: 03/18 Exam# [id number] Ordering Dr: Marialuisa Gottlieb MD PROCEDURE: ABDOMEN/PELVIS WITHOUT CONT 03/27/2025 REASON FOR EXAM: KIDNEY STONE Kidney stones. TECHNIQUE: Procedure Code: CTABDPEL Modality: CT Procedure: ABDOMEN/PELVIS WITHOUT CONT Noncontrast technique limits evaluation of the abdominal and pelvic viscera. Coronal and Sagittal reconstruction series were provided. One or more dose reduction techniques were used (e.g., Automated exposure control, adjustment of the mA and/or kV according to patient size, use of iterative reconstruction technique). RADIATION DOSE SUMMARY: CTDlvol: 9 mGy DLP: 432.4 mGycm COMPARISON: December 2018 FINDINGS: Lung bases: Negative. ABDOMEN Liver: Negative. Biliary system: Negative. Negative for intrahepatic or extrahepatic ductal dilatation. Gallbladder: Removed . Spleen: Negative. Pancreas: Negative. Adrenals: Negative. Kidneys: Nonobstructing left kidney stones. Punctate nonobstructing right kidney stones. Negative for renal mass or cysts. Bowel: Increased stool throughout the colon with mild diffuse diverticulosis. Negative for small or large-bowel obstruction. Appendix: The appendix is not identified. There is no inflammatory process identified in the right lower quadrant to suggest appendicitis. Vasculature: Mild atherosclerotic vascular calcifications of the abdominal aorta and its branches. Peritoneum / Retroperitoneum: Negative. PELVIS Lymph nodes: Negative for inguinal or iliac adenopathy. Bladder: Negative Reproductive Organs: Hysterectomy. Bones and Soft Tissues: Moderate degenerative changes of the lower lumbar spine. Otherwise age appropriate appearance of the lumbar spine hips and pelvis. CT/Abdomen/Pelvis without Cont IMPRESSION: Nonobstructing nephrolithiasis. Negative for acute intra-abdominal or pelvic pathology. Reading Location: [id number] CC: SECURITY INCIDENT HANDLER-Ivleisse Barboza; Dr. 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: Signed Normal [facility] - Chemistry and C hemistry - challengeOrdered By: Marialuisa Gottlieb on 03-16-2025 Bilirubin Ql (U) Small (1+) [facility] Glucose Ql (U) Negative [facility] Ketones Ql (U) Negative [facility] pH (U) 7 [pH] [facility] Specific gravity (U) [Rel density] 1.010 [facility] Urobilinogen (U) [Mass/Vol] 0.7965991 mg/dL [facility] - Hematology and Cell countsOrdered By: Marialuisa Gottlieb on 03-16-2025 Hemoglobin Ql (U) Negative [facility] - UrinalysisOrder ed By: Marialuisa Gottlieb on 03-16-2025 Nitrite Ql (U) Negative [facility] Protein Ql (U) Trace [facility] MR/Andrew 03-16-2025 MR/JAYCEEGerberDANISHA [facility] [address], [address] [place] [address] OFFICE VISIT Date of Service: 03/16/25 MR#: [id number] Acct: [id number] Name: MARTÍNEZ VINCENT Rep #: [id number] : 1965 Provider: Dr. Marialuisa Ortega i, MD Age/Sex: 59/F [place] [facility] [place]: Signed Intake Vital Signs 09/23/22 22:07 03/16/25 13:17 Height 5 ft 3 in 5 ft 3 in Weight: 152 lb BMI 26.9 BP 135/82 H Pulse 73 Intake Visit Reasons: Kidney stone Chief Complaint: new patient- kidney stone Industrial Custodian Required: No Accompanied by: Is patient in pain?: No Allergies Penicillins Allergy (Verified 03/16/25 13:13) Rash Medications ???Medication ???Instructions ???Recorded ???Confirmed ???Type zolpidem 10 mg tablet (Ambien) 10 mg PO QHS sleep. 10/08/1703/16 History escitalopram oxalate 10 mg tablet 10 mg PO DAILY anxiety 01/05/19 0 03/16/25 History lorazepam 0.5 mg tablet (Ativan) 0.5 mg PO QDAY PRN 03/16/25 History Nurse's Note: bladder scan PVR some discomfort with stones no pain PFSH Medical History Stress incontinence Neuropathy Hives Hypertension Chronic headaches Gallstones Emotional problems UTI (urinary tract infection) Back problem Arthritis Allergies Surgical History H/O: hysterectomy History of appendectomy S/P cholecystectomy Previous back surgery Family History Other Anxiety Hypertension Social History Smoking Status: Former smoker alcohol intake: current details: occasionally substance use type: does not use what type of physical activity do you participate in: walking and other frequency: daily do you feel safe at home: Yes HPI HPI Urology Chief Complaint: new patient- kidney stone Details: MARTÍNEZ VINCENT, is a 59 F. She is here for evaluation and management of kidney stones. She has passed 2 stones on her own, and she has had an ESWL as well as ureteroscopy. She is going to [place] in May and is worried about having a stone pass. She had a 24hr UA stone protocol many years ago. It showed that her water intake was low. She has been having bilateral heavy sensation in her back recently similar to when she has stones. This has been for the last 2-3 weeks. She is getting a feeling of fatigue and aching, temps are below 100. Tylenol helps. Her aching is mostly on the left with occasional sharp sensation on the right. She is voiding 5-10 times during the day, 0-1 times at night. There is no urge incontinence where she cannot make it to the bathroom. There is mild stress incontinence with cough, laugh, sneeze, lifting, etc. She is using 1 liner pads in 24 hours. She has had no urinary tract infections in the last year. She has not had visible blood in her urine. She is not sexually active. There is no sensation of vaginal bulging. She has the following issues with chronic bowel function: struggles with constipation. She uses Miralax. There is no pelvic pain, sometimes discomfort. She has a remote history of smoking. There is no history of blood clots or easy bleeding. There is not a family history of female cancer. ROS Const Constitutional: Positive for chills, fatigue and fever(s) (low grade to 100.); No headache(s), night sweats, weakness, weight change, abnormal sleep pattern or change in appetite Eyes Eyes: No change in vision ENT ENT: No headache(s) or dry mouth Resp Respiratory: No cough, chest congestion, shortness of breath or wheezing Cardio Cardiology: Positive for other (No chest pain.); No shortness of breath, irregular heart rhythm or lightheadedness Gastro GI: Positive for constipation (managed with Miralax.) and other (No nausea.); No abdominal pain, change in bowel habits, diarrhea or vomiting Musc Musculoskeletal: No abnormal gait Skin Skin: No yellowing of the eye, lesions, itchy eyes, rash or skin ulcer Neuro Neurology: No abnormal gait, confusion, dizziness, weakness, headache(s) or memory loss Psych Psychiatric: No abnormal sleep pattern, No change in appetite, No confusion and No memory loss Endo Endocrine: Positive for fatigue; No increased thirst/drinking or weight change Aller/Imm Allergy/Immunologic : No itchy eyes or wheezing Chuckie/Lymp Hematologic/Lymphat ic: No easy bleeding, easy bruising or enlarged lymph nodes Exam Const General: cooperative, healthy appearing, comfortable and no acute distress HENMT Head: normocephalic and atraumatic Ears: hearing grossly normal bilaterally and external ears normal Nose: external nose normal Eyes General: appearance normal, both eyes and all (more content not included)... Normal [facility] No Panel InformationOrdered By: Marialuisa Gottlieb on 03-16-2025 Urine Leukocytes Negatve [facility] Urine Non-Hemolyzed Blood Negative [facility] US RENALon 03-06-2025 US RENAL ORIGINAL EXAMINATION: ULTRASOUND OF THE KIDNEYS 03/06/2025 2:25 pm COMPARISON: CT abdomen pelvis 03/29/2022 HISTORY: ORDERING SYSTEM PROVIDED HISTORY: Reason for Exam: LEFT FLANK PAIN All images are recorded and archived. FINDINGS: Right and left kidneys measure 12.7 x 4.9 x 5.8 cm, and 11.3 x 6.1 x 5.0 cm respectively. Multiple punctate echogenic stones affect the mid to lower pole left kidney, the largest is seen in the lower pole measuring 6 mm. These are unchanged from prior CT scan. Urinary bladder contains 160 mL of urine. There is no bladder mass or stone. Postvoid volume of the bladder is 6.4 mL. IMPRESSION: 1. Multiple nonobstructing left renal calculi. 2. No acute finding. Interpreted by: Kevin Ludwig DO Preliminary Report By: Kevin Ludwig DO Electronically signed By Kevin Ludwig DO Dictated Date: 03/06/2025 4:01:54 PM Prelim Date: 03/06/2025 4:05:13 PM Sign Date: 03/06/2025 4:05:13 PM Ordering Provider: RAND BARBOZA [facility] SCRN MAMM (CAD)W/ANDRES BILATo n 06-30-2024 SCRN MAMM (CAD)W/ANDRES BILAT [facility] Imaging Services [address] [place] [id number] SCRN MAMM (CAD)W/ANDRES BILAT MR#: [id number] Acct: [id number] Name: MARTÍNEZ VINCENT Rep #: [id number] : 1965 F 59 From: Ronnell salas MD PCP: RUSS Rapp Status: [facility] Study: SCRN MAMM (CAD)W/ANDRES BILAT Date of Exam: 06/18 09/09 Exam# [id number] Ordering Dr: Rand Barboza NP SECURITY INCIDENT HANDLER-C -[id number] MAMMOGRAPHY - BILATERAL SCREENING REASON FOR EXAM: Female, 59 years old. Routine annual screening examination. PERTINENT HISTORY: Non-contributory. TECHNIQUE: Digital bilateral breast andres (3D mammographic acquisition) in the CC and MLO projections. 2-D mediolateral oblique (MLO) and craniocaudad (CC) views of both breasts were obtained. CAD: Full Field Digital Mammography with Computer Added Detection was performed. COMPARISON: Comparison is made with prior study dated June 27, 2023 and June 22, 2022. FINDINGS: Breast Composition: The breasts are heterogeneously dense, which may obscure small masses. There are no dominant masses or suspicious calcifications. No other significant abnormalities are identified. There has been no significant change since the prior study. BI/SCRN MAMM (CAD)W/ANDRES BILAT IMPRESSION: Stable bilateral screening mammogram. Yearly follow-up mammogram recommended. (A) ASSESSMENT CATEGORY: BIRADS Category 1: Negative. A letter regarding these results will be sent to the patient by the facility within 30 days. Approximately 10% of breast cancers are not detected by mammography. A normal mammogram should not delay biopsy of a clinically suspicious abnormality. 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 Normal [facility] .Auto Diffon 05-27-2024 Basophil, Absolute 0.1 10 3/mcL Normal 0.0-0.2 [facility] Comment on above: Performed By: #### C BC, CMP, LIPID, GFR, ADIFF, ANEU #### [address] [address] Basophils/100 WBC (Bld) 1.1 % Normal 0.0-2.5 [facility] Comment on above: Performed By: #### C BC, CMP, LIPID, GFR, ADIFF, ANEU #### [id number] [place], [place] [address] Eosinophil, Absolute 0.1 10 3/mcL Normal 0.0-0.7 [facility] Comment on above: Performed By: #### C BC, CMP, LIPID, GFR, ADIFF, ANEU #### [address] [address] Eosinophils/100 WBC (Bld) 1.7 % Normal 0.0-7.0 [facility] Comment on above: Performed By: #### C BC, CMP, LIPID, GFR, ADIFF, ANEU #### [address] [address] Lymphocyte, Absolute 1.4 10 3/mcL Normal 0.9-4.3 [facility] Comment on above: Performed By: #### C BC, CMP, LIPID, GFR, ADIFF, ANEU #### [address] [address] Lymphocytes/100 WBC (Bld) 27.3 % Normal 20.0-40.0 [facility] Comment on above: Performed By: #### C BC, CMP, LIPID, GFR, ADIFF, ANEU #### [address] [address] Monocyte, Absolute 0.5 10 3/mcL Normal 0.1-1.4 [facility] Comment on above: Performed By: #### C BC, CMP, LIPID, GFR, ADIFF, ANEU #### [address] [address] Monocytes/100 WBC (Bld) 9.8 % Normal 2.0-13.0 [facility] Comment on above: Performed By: #### C BC, CMP, LIPID, GFR, ADIFF, ANEU #### [address] [address] Neutrophils/100 WBC (Bld) 60.1 % Normal 50.0-75.0 [facility] Comment on above: Performed By: #### C BC, CMP, LIPID, GFR, ADIFF, ANEU #### [address] [address] .GFRon 05-27-2024 GFR Non- 97 ml/min/1.73sqm Normal [facility] Comment on above: Result Comment: GFR Population mean for , Non- Americans Ages 20-29 = 116 mL/min/1.73 sq.m. Ages 30-39 = 107 mL/min/1.73 sq.m. Ages 40-49 = 99 mL/min/1.73 sq.m. Ages 50-59 = 93 mL/min/1.73 sq.m. Ages 60-69 = 85 mL/min/1.73 sq.m. Ages 70+ = 75 mL/min/1.73 sq.m. Chronic Kidney Disease: Less than 60 mL/min/1.73 square meters End Stage Renal Disease: Less than 15 mL/min/1.73 square meters Performed By: #### C BC, CMP, LIPID, GFR, ADIFF, ANEU #### [address] [address] GFR 118 ml/min/1.73sqm Normal [facility] Comment on above: Result Comment: GFR Population mean for , Non- Americans Ages 20-29 = 116 mL/min/1.73 sq.m. Ages 30-39 = 107 mL/min/1.73 sq.m. Ages 40-49 = 99 mL/min/1.73 sq.m. Ages 50-59 = 93 mL/min/1.73 sq.m. Ages 60-69 = 85 mL/min/1.73 sq.m. Ages 70+ = 75 mL/min/1.73 sq.m. Chronic Kidney Disease: Less than 60 mL/min/1.73 square meters End Stage Renal Disease: Less than 15 mL/min/1.73 square meters Performed By: #### C BC, CMP, LIPID, GFR, ADIFF, ANEU #### [address] [address] .NEUABSon 05-27-2024 Neutrophil, Absolute 3.1 10 3/mcL Normal 2.3-8.1 [facility] Comment on above: Performed By: #### C BC, CMP, LIPID, GFR, ADIFF, ANEU #### [address] [address] CBCon 05-27-2024 Erythrocyte distribution width (RBC) [Ratio] 13.0 % Normal 11.5-15.5 [facility] Comment on above: Performed By: #### C BC, CMP, LIPID, GFR, ADIFF, ANEU #### [address] [address] Hematocrit (Bld) [Volume fraction] 42.4 % Normal 34.0-46.0 [facility] Comment on above: Performed By: #### C BC, CMP, LIPID, GFR, ADIFF, ANEU #### [address] [address] Hgb 14.5 G/dL Normal 12.0-16.0 [facility] Comment on above: Performed By: #### C BC, CMP, LIPID, GFR, ADIFF, ANEU #### [address] [address] MCH (RBC) [Entitic mass] 30.8 pg Normal 27.0-33.0 [facility] Comment on above: Performed By: #### C BC, CMP, LIPID, GFR, ADIFF, ANEU #### [address] [address] MCHC 34.2 G/dL Normal 32.0-36.0 [facility] Comment on above: Performed By: #### C BC, CMP, LIPID, GFR, ADIFF, ANEU #### [address] [address] MCV (RBC) [Entitic vol] 90.0 fL Normal 80.0-99.0 [facility] Comment on above: Performed By: #### C BC, CMP, LIPID, GFR, ADIFF, ANEU #### [address] [address] Platelet 246 10 3/mcL Normal 150-450 [facility] Comment on above: Performed By: #### C BC, CMP, LIPID, GFR, ADIFF, ANEU #### [address] [address] Platelet mean volume (Bld) [Entitic vol] 7.7 fL Normal 6.6-10.5 [facility] Comment on above: Performed By: #### C BC, CMP, LIPID, GFR, ADIFF, ANEU #### [id number] RBC 4.71 10 6/mcL Normal 4.10-5.30 [facility] Comment on above: Performed By: #### C BC, CMP, LIPID, GFR, ADIFF, ANEU #### [address] [address] WBC 5.2 10 3/mcL Normal 4.5-10.8 [facility] Comment on above: Performed By: #### C BC, CMP, LIPID, GFR, ADIFF, ANEU #### [address] [address] CMPon 05-27-2024 Albumin Level 3.6 G/dL Normal 3.5-5.0 [facility] Comment on above: Performed By: #### C BC, CMP, LIPID, GFR, ADIFF, ANEU #### [address] [address] Albumin/Globulin [Mass ratio] 1.2 {ratio} Normal 1.1-2.5 [facility] Comment on above: Performed By: #### C BC, CMP, LIPID, GFR, ADIFF, ANEU #### [address] [address] ALP [Catalytic activity/Vol] 60 U/L Normal 40-135 [facility] Comment on above: Performed By: #### C BC, CMP, LIPID, GFR, ADIFF, ANEU #### [address] [address] ALT [Catalytic activity/Vol] 17 U/L Normal 14-59 [facility] Comment on above: Performed By: #### C BC, CMP, LIPID, GFR, ADIFF, ANEU #### [address] [address] AST [Catalytic activity/Vol] 19 U/L Normal 10-40 [facility] Comment on above: Performed By: #### C BC, CMP, LIPID, GFR, ADIFF, ANEU #### [address] [address] Bili Total 0.6 mg/dL Normal 0.2-1.0 [facility] Comment on above: Result Comment: Use of this assay is not recommended for patients undergoing treatment with eltrombopag due to the potential for falsely elevated results. Performed By: #### C BC, CMP, LIPID, GFR, ADIFF, ANEU #### [address] [address] BUN/Creatinine Ratio 22 ratio Normal 7-27 [facility] Comment on above: Performed By: #### C BC, CMP, LIPID, GFR, ADIFF, ANEU #### [address] [place] [address] Calcium [Mass/Vol] 9.6 mg/dL Normal 8.4-10.2 [facility] Comment on above: Performed By: #### C BC, CMP, LIPID, GFR, ADIFF, ANEU #### [address] [address] Chloride [Moles/Vol] 105 mmol/L Normal 98-107 [facility] Comment on above: Performed By: #### C BC, CMP, LIPID, GFR, ADIFF, ANEU #### [address] [address] CO2 [Moles/Vol] 31 mmol/L High 22-29 [facility] Comment on above: Performed By: #### C BC, CMP, LIPID, GFR, ADIFF, ANEU #### [address] [address] Creatinine [Mass/Vol] 0.63 mg/dL Normal 0.55-1.02 [facility] Comment on above: Result Comment: Test ing performed on Siemens Dimension EXL analyzer using a modified kinetic Nolberto technique. Performed By: #### C BC, CMP, LIPID, GFR, ADIFF, ANEU #### [address] [address] Electrolyte Balance 6.0 mEq/L Normal 4.0-15.0 [facility] Comment on above: Performed By: #### C BC, CMP, LIPID, GFR, ADIFF, ANEU #### [address] [address] Globulin 3.0 G/dL Normal [facility] Comment on above: Performed By: #### C BC, CMP, LIPID, GFR, ADIFF, ANEU #### [address] [address] Glucose [Mass/Vol] 86 mg/dL Normal 70-105 [facility] Comment on above: Performed By: #### C BC, CMP, LIPID, GFR, ADIFF, ANEU #### [address] [address] Potassium [Moles/Vol] 5.2 mmol/L High 3.5-5.1 [facility] Comment on above: Performed By: #### C BC, CMP, LIPID, GFR, ADIFF, ANEU #### [address] [address] Sodium [Moles/Vol] 142 mmol/L Normal 136-145 [facility] Comment on above: Performed By: #### C BC, CMP, LIPID, GFR, ADIFF, ANEU #### [address] [address] Total Protein 6.6 G/dL Normal 6.4-8.2 [facility] Comment on above: Performed By: #### C BC, CMP, LIPID, GFR, ADIFF, ANEU #### [address] [address] Urea nitrogen [Mass/Vol] 14 mg/dL Normal 7-18 [facility] Comment on above: Performed By: #### C BC, CMP, LIPID, GFR, ADIFF, ANEU #### [address] [address] LABORATORYOrdered By: SYSTEM SYSTEM on 05-27-2024 Albumin BCP dye [Mass/Vol] 3.6 G/dL Normal 3.5 - 5.0 G/dL AO ADM SS Albumin/Globulin [Mass ratio] 1.2 {ratio} Normal 1.1 - 2.5 ratio AO ADM SS ALP [Catalytic activity/Vol] 60 U/L Normal 40 - 135 U/L AO ADM SS ALT With P-5'-P [Catalytic activity/Vol] 17 U/L Normal 14 - 59 U/L AO ADM SS AST With P-5'-P [Catalytic activity/Vol] 19 U/L Normal 10 - 40 U/L AO ADM SS Basophils (Bld) [#/Vol] 0.1 103/mcL Normal 0.0 - 0.2 10^3/mcL AO Workflow SS Basophils/100 WBC (Bld) 1.1 % Normal 0.0 - 2.5 % AO Workflow SS Bilirubin [Mass/Vol] 0.6 mg/dL Normal 0.2 - 1 .0 mg/dL AO ADM SS Comment on above: Interpretive Data: U se of this assay is not recommended for patients undergoing treatment with eltrombopag due to the potential for falsely elevated results. Calcium [Mass/Vol] 9.6 mg/dL Normal 8.4 - 10. 2 mg/dL AO ADM SS Chloride [Moles/Vol] 105 mmol/L Normal 98 - 10 7 mmol/L AO ADM SS CO2 [Moles/Vol] 31 mmol/L High 22 - 29 mmol/L AO ADM SS Creatinine [Mass/Vol] 0.63 mg/dL Normal 0.55 - 1.02 mg/dL AO ADM SS Comment on above: Interpretive Data: T esting performed on Siemens Dimension EXL analyzer using a modified kinetic Nolberto technique. Electrolyte Balance 6.0 mEq/L Normal 4.0 - 15 .0 mEq/L AO ADM SS Eosinophil, Absolute 0.1 103/mcL Normal 0.0 - 0 .7 10^3/mcL AO Workflow SS Eosinophils/100 WBC (Bld) 1.7 % Normal 0.0 - 7.0 % AO Workflow SS Erythrocyte distribution width (RBC) [Ratio] 13.0 % Normal 11.5 - 15.5 % AO Workflow SS GFR/1.73 sq M.predicted among blacks MDRD (S/P/Bld) [Vol rate/Area] 118 ml/min/1.73sqm Invalid Interpretation Code AO Chemistry S Comment on above: Interpretive Data: GFR Population mean for , Non- Americans Ages 20-29 = 116 mL/min/1.73 sq.m. Ages 30-39 = 107 mL/min/1.73 sq.m. Ages 40-49 = 99 mL/min/1.73 sq.m. Ages 50-59 = 93 mL/min/1.73 sq.m. Ages 60-69 = 85 mL/min/1.73 sq.m. Ages 70+ = 75 mL/min/1.73 sq.m. Chronic Kidney Disease: Less than 60 mL/min/1.73 square meters End Stage Renal Disease: Less than 15 mL/min/1.73 square meters GFR/1.73 sq M.predicted among non-blacks MDRD (S/P/Bld) [Vol rate/Area] 97 ml/min/1.73sqm Invalid Interpretation Code AO Chemistry S Comment on above: Interpretive Data: GFR Population mean for , Non- Americans Ages 20-29 = 116 mL/min/1.73 sq.m. Ages 30-39 = 107 mL/min/1.73 sq.m. Ages 40-49 = 99 mL/min/1.73 sq.m. Ages 50-59 = 93 mL/min/1.73 sq.m. Ages 60-69 = 85 mL/min/1.73 sq.m. Ages 70+ = 75 mL/min/1.73 sq.m. Chronic Kidney Disease: Less than 60 mL/min/1.73 square meters End Stage Renal Disease: Less than 15 mL/min/1.73 square meters Globulin 3.0 G/dL Invalid Interpretation Code AO ADM SS Glucose [Mass/Vol] 86 mg/dL Normal 70 - 105 mg/dL AO ADM SS Hematocrit (Bld) [Volume fraction] 42.4 % Normal 34.0 - 46.0 % AO Workflow SS Hemoglobin (Bld) [Mass/Vol] 14.5 G/dL Normal 12.0 - 16.0 G/dL AO Workflow SS Lymphocytes (Bld) [#/Vol] 1.4 103/mcL Normal 0.9 - 4.3 10^3/mcL AO Workflow SS Lymphocytes/100 WBC (Bld) 27.3 % Normal 20.0 - 40.0 % AO Workflow SS MCH (RBC) [Entitic mass] 30.8 pg Normal 27. 0 - 33.0 pg AO Workflow SS MCHC 34.2 G/dL Normal 32.0 - 36.0 G/dL AO Workflow SS MCV (RBC) [Entitic vol] 90.0 fL Normal 80.0 - 99.0 fL AO Workflow SS Monocytes (Bld) [#/Vol] 0.5 103/mcL Normal 0.1 - 1.4 10^3/mcL AO Workflow SS Monocytes/100 WBC (Bld) 9.8 % Normal 2.0 - 13.0 % AO Workflow SS Neutrophils (Bld) [#/Vol] 3.1 103/mcL Normal 2.3 - 8.1 10^3/mcL AO Workflow SS Neutrophils/100 WBC (Bld) 60.1 % Normal 50.0 - 75.0 % AO Workflow SS Platelet mean volume (Bld) [Entitic vol] 7.7 fL Normal 6.6 - 10.5 fL AO Workflow SS Platelets (Bld) [#/Vol] 246 103/mcL Normal 150 - 450 10^3/mcL AO Workflow SS Potassium [Moles/Vol] 5.2 mmol/L High 3.5 - 5.1 mmol/L AO ADM SS Protein [Mass/Vol] 6.6 G/dL Normal 6.4 - 8.2 G/dL AO ADM SS RBC (Bld) [#/Vol] 4.71 106/mcL Normal 4.10 - 5.3 0 10^6/mcL AO Workflow SS Sodium [Moles/Vol] 142 mmol/L Normal 136 - 145 mmol/L AO ADM SS Urea nitrogen [Mass/Vol] 14 mg/dL Normal 7 - 18 mg/d L AO ADM SS Urea nitrogen/Creatinine [Mass ratio] 22 ratio Normal 7 - 27 ratio AO ADM SS WBC (Bld) [#/Vol] 5.2 103/mcL Normal 4.5 - 10.8 10^3/mcL AO Workflow SS LABORATORYOrdered By: Richelle Danielle on 05-27-2024 Cholesterol [Mass/Vol] 200 mg/dL Normal 0 - 2 00 mg/dL AO ADM SS Comment on above: Interpretive Data: C holesterol Reference Interval: Less than 200 Desirable 200-239 Borderline high risk 240 and above High risk Cholesterol in HDL [Mass/Vol] 103 mg/dL High 40 - 60 mg/dL AO ADM SS Cholesterol in LDL [Mass/Vol] 89 mg/dL Normal 0 - 130 mg/dL AO ADM SS Triglyceride [Mass/Vol] 42 mg/dL Normal 0 - 150 mg/dL AO ADM SS Comment on above: Interpretive Data: T riglyceride Reference Interval: Less than 150 Normal 150-199 Borderline high risk 200-499 High risk 500 or higher Very high risk LIPIDon 12-10-2024 Cholesterol [Mass/Vol] 200 mg/dL Normal 0-200 [facility] Comment on above: Result Comment: Chol esterol Reference Interval: Less than 200 Desirable 200-239 Borderline high risk 240 and above High risk Performed By: #### C BC, CMP, LIPID, GFR, ADIFF, ANEU #### [id number] [place], [place] [address] Cholesterol in HDL [Mass/Vol] 103 mg/dL High 40-60 [facility] Comment on above: Performed By: #### C BC, CMP, LIPID, GFR, ADIFF, ANEU #### [id number] [place], [place] [address] Cholesterol in LDL [Mass/Vol] 89 mg/dL Normal 0-130 [facility] Comment on above: Performed By: #### C BC, CMP, LIPID, GFR, ADIFF, ANEU #### [id number] [place], [place] [address] Triglyceride [Mass/Vol] 42 mg/dL Normal 0-150 [facility] Comment on above: Result Comment: Trig lyceride Reference Interval: Less than 150 Normal 150-199 Borderline high risk 200-499 High risk 500 or higher Very high risk Performed By: #### C BC, CMP, LIPID, GFR, ADIFF, ANEU #### [id number] [place], [place] [address] LABORATORYOrdered By: Jethro Marquez on 03-04-2024 Albumin DL <= 20 mg/L (U) [Mass/Vol] 2330 mcg/dL Invalid Interpretation Code AO ADM SS Albumin/Creatinine DL <= 20 mg/L (U) [Mass ratio] 24 mcg/mg Normal 0 - 30 mcg/mg AO ADM SS Creatinine (U) [Mass/Vol] 98.5 mg/dL Normal 28.0 - 117.0 mg/dL AO ADM SS LABORATORYOrdered By: Britney Ricci on 09-18-2023 Albumin DL <= 20 mg/L (U) [Mass/Vol] 6685 mcg/dL Invalid Interpretation Code AO ADM SS Albumin/Creatinine DL <= 20 mg/L (U) [Mass ratio] 40 mcg/mg High 0 - 30 mcg/mg AO ADM SS Creatinine (U) [Mass/Vol] 167.6 mg/dL High 28.0 - 117.0 mg/dL AO ADM SS MALBRon 09-18-2023 U Creatinine 167.6 mg/dL High 28.0-117.0 [facility] ([place]) Comment on above: Performed By: #### M ALBR #### [facility] [address] [place] [id number] U Microalb 6685 mcg/dL Normal [facility] ([place]) Comment on above: Performed By: #### M ALBR #### [facility] [address] [place], [place] [address] U Ratio Alb/Cre 40 mcg/mg High 0-30 [facility] ([place]) Comment on above: Performed By: #### M ALBR #### [address] [address] NM MYOCARDIAL SPECT STRESS/R ESTon 06-14-2023 NM MYOCARDIAL SPECT STRESS/REST ORIGINAL NM MYOCARDIAL SPECT STRESS/REST CLINICAL STATEMENT: [...] By: Duane Olivas Preliminary Report By: Duane Olivas Electronically Signed By: Duane Olivas Dictated Date: 06/14/2023 5:16:23 PM Prelim Date: 06/14/2023 5:16:23 PM Sign Date: 06/14/2023 5:18:35 PM Ordering Provider:Rand Guardado [facility] ([place]) MALBRon 03-13-2023 U Creatinine 136.9 mg/dL High 28.0-117.0 [facility] ([place]) Comment on above: Performed By: #### M ALBR #### [address] [address] U Microalb 4606 mcg/dL Normal [facility] ([place]) Comment on above: Performed By: #### M ALBR #### [address] [address] U Ratio Alb/Cre 34 mcg/mg High 0-30 [facility] ([place]) Comment on above: Performed By: #### M ALBR #### [address] [address] .Auto Diffon 02-28-2023 Basophil, Absolute 0.0 10 3/mcL Normal 0.0-0.2 [facility] ([place]) Comment on above: Performed By: #### A DIFF, CBC, LIPID, ANEU, CMP, GFR #### [address] [address] Basophils/100 WBC (Bld) 0.9 % Normal 0.0-2.5 [facility] ([place]) Comment on above: Performed By: #### A DIFF, CBC, LIPID, ANEU, CMP, GFR #### [address] [address] Eosinophil, Absolute 0.1 10 3/mcL Normal 0.0-0.4 [facility] ([place]) Comment on above: Performed By: #### A DIFF, CBC, LIPID, ANEU, CMP, GFR #### [address] [address] Eosinophils/100 WBC (Bld) 1.5 % Normal 0.0-7.0 [facility] ([place]) Comment on above: Performed By: #### A DIFF, CBC, LIPID, ANEU, CMP, GFR #### [address] [address] Lymphocyte, Absolute 1.8 10 3/mcL Normal 0.8-3.9 [facility] ([place]) Comment on above: Performed By: #### A DIFF, CBC, LIPID, ANEU, CMP, GFR #### [address] [address] Lymphocytes/100 WBC (Bld) 33.7 % Normal 10.0-50.0 [facility] ([place]) Comment on above: Performed By: #### A DIFF, CBC, LIPID, ANEU, CMP, GFR #### [address] [address] Monocyte, Absolute 0.7 10 3/mcL Normal 0.2-1.0 [facility] ([place]) Comment on above: Performed By: #### A DIFF, CBC, LIPID, ANEU, CMP, GFR #### [address] [address] Monocytes/100 WBC (Bld) 13.0 % Normal 1.7-13.0 [facility] ([place]) Comment on above: Performed By: #### A DIFF, CBC, LIPID, ANEU, CMP, GFR #### [address] [address] Neutrophils/100 WBC (Bld) 50.9 % Normal 37.0-80.0 [facility] ([place]) Comment on above: Performed By: #### A DIFF, CBC, LIPID, ANEU, CMP, GFR #### [address] [address] .GFRon 02-28-2023 GFR 108 ml/min/1.73sqm Normal [facility] ([place]) Comment on above: Result Comment: GFR Population mean for , Non- Americans Ages 20-29 = 116 mL/min/1.73 sq.m. Ages 30-39 = 107 mL/min/1.73 sq.m. Ages 40-49 = 99 mL/min/1.73 sq.m. Ages 50-59 = 93 mL/min/1.73 sq.m. Ages 60-69 = 85 mL/min/1.73 sq.m. Ages 70+ = 75 mL/min/1.73 sq.m. Chronic Kidney Disease: Less than 60 mL/min/1.73 square meters End Stage Renal Disease: Less than 15 mL/min/1.73 square meters Performed By: #### A DIFF, CBC, LIPID, ANEU, CMP, GFR #### [address] [address] GFR Non- 89 ml/min/1.73sqm Normal [facility] ([place]) Comment on above: Result Comment: GFR Population mean for , Non- Americans Ages 20-29 = 116 mL/min/1.73 sq.m. Ages 30-39 = 107 mL/min/1.73 sq.m. Ages 40-49 = 99 mL/min/1.73 sq.m. Ages 50-59 = 93 mL/min/1.73 sq.m. Ages 60-69 = 85 mL/min/1.73 sq.m. Ages 70+ = 75 mL/min/1.73 sq.m. Chronic Kidney Disease: Less than 60 mL/min/1.73 square meters End Stage Renal Disease: Less than 15 mL/min/1.73 square meters Performed By: #### A DIFF, CBC, LIPID, ANEU, CMP, GFR #### [address] [address] .NEUABSon 02-28-2023 Neutrophil, Absolute 2.7 10 3/mcL Low 2.9-6.2 [facility] ([place]) Comment on above: Performed By: #### A DIFF, CBC, LIPID, ANEU, CMP, GFR #### [address] [address] CBCon 02-28-2023 Erythrocyte distribution width (RBC) [Ratio] 12.8 % Normal 11.5-14.5 [facility] ([place]) Comment on above: Performed By: #### A DIFF, CBC, LIPID, ANEU, CMP, GFR #### [address] [address] Hematocrit (Bld) [Volume fraction] 40.3 % Normal 37.0-47.0 [facility] ([place]) Comment on above: Performed By: #### A DIFF, CBC, LIPID, ANEU, CMP, GFR #### [place] [id number] Hgb 13.6 G/dL Normal 12.0-16.0 [facility] ([place]) Comment on above: Performed By: #### A DIFF, CBC, LIPID, ANEU, CMP, GFR #### [id number] MCH (RBC) [Entitic mass] 29.8 pg Normal 27.0-31.2 [facility] ([place]) Comment on above: Performed By: #### A DIFF, CBC, LIPID, ANEU, CMP, GFR #### [place] [address] MCHC 33.7 G/dL Normal 33.0-37.0 [facility] ([place]) Comment on above: Performed By: #### A DIFF, CBC, LIPID, ANEU, CMP, GFR #### [address] [address] MCV (RBC) [Entitic vol] 88.5 fL Normal 80.0-94.0 [facility] ([place]) Comment on above: Performed By: #### A DIFF, CBC, LIPID, ANEU, CMP, GFR #### [address] [address] Platelet 237 10 3/mcL Normal 130-400 [facility] ([place]) Comment on above: Performed By: #### A DIFF, CBC, LIPID, ANEU, CMP, GFR #### [address] [address] Platelet mean volume (Bld) [Entitic vol] 7.6 fL Normal 7.4-10.4 [facility] ([place]) Comment on above: Performed By: #### A DIFF, CBC, LIPID, ANEU, CMP, GFR #### [address] [address] RBC 4.56 10 6/mcL Normal 4.20-5.40 [facility] ([place]) Comment on above: Performed By: #### A DIFF, CBC, LIPID, ANEU, CMP, GFR #### [address] [address] [address] WBC 5.2 10 3/mcL Normal 4.6-10.8 [facility] ([place]) Comment on above: Performed By: #### A DIFF, CBC, LIPID, ANEU, CMP, GFR #### [address] [address] CMPon 02-28-2023 Albumin Level 3.6 G/dL Normal 3.5-5.0 [facility] ([place]) Comment on above: Performed By: #### A DIFF, CBC, LIPID, ANEU, CMP, GFR #### [address] [address] Albumin/Globulin [Mass ratio] 1.2 {ratio} Normal 1.1-2.5 [facility] ([place]) Comment on above: Performed By: #### A DIFF, CBC, LIPID, ANEU, CMP, GFR #### [address] [address] ALP [Catalytic activity/Vol] 64 U/L Normal 40-135 [facility] ([place]) Comment on above: Performed By: #### A DIFF, CBC, LIPID, ANEU, CMP, GFR #### [address] [address] ALT [Catalytic activity/Vol] 18 U/L Normal 14-59 [facility] ([place]) Comment on above: Performed By: #### A DIFF, CBC, LIPID, ANEU, CMP, GFR #### [address] [address] AST [Catalytic activity/Vol] 13 U/L Normal 10-40 [facility] ([place]) Comment on above: Performed By: #### A DIFF, CBC, LIPID, ANEU, CMP, GFR #### [address] [address] Bili Total 0.8 mg/dL Normal 0.2-1.0 [facility] ([place]) Comment on above: Result Comment: Use of this assay is not recommended for patients undergoing treatment with eltrombopag due to the potential for falsely elevated results. Performed By: #### A DIFF, CBC, LIPID, ANEU, CMP, GFR #### [address] [address] BUN/Creatinine Ratio 22 ratio Normal 7-27 [facility] ([place]) Comment on above: Performed By: #### A DIFF, CBC, LIPID, ANEU, CMP, GFR #### [address] [address] Calcium [Mass/Vol] 9.0 mg/dL Normal 8.4-10.2 [facility] ([place]) Comment on above: Performed By: #### A DIFF, CBC, LIPID, ANEU, CMP, GFR #### [address] [address] Chloride [Moles/Vol] 104 mmol/L Normal 98-107 [facility] ([place]) Comment on above: Performed By: #### A DIFF, CBC, LIPID, ANEU, CMP, GFR #### [address] [address] CO2 [Moles/Vol] 26 mmol/L Normal 22-29 [facility] ([place]) Comment on above: Performed By: #### A DIFF, CBC, LIPID, ANEU, CMP, GFR #### [address] [address] Creatinine [Mass/Vol] 0.68 mg/dL Normal 0.55-1.02 [facility] ([place]) Comment on above: Performed By: #### A DIFF, CBC, LIPID, ANEU, CMP, GFR #### [address] [address] Electrolyte Balance 8.0 mEq/L Normal 4.0-15.0 [facility] ([place]) Comment on above: Performed By: #### A DIFF, CBC, LIPID, ANEU, CMP, GFR #### [address] [address] Globulin 3.0 G/dL Normal [facility] ([place]) Comment on above: Performed By: #### A DIFF, CBC, LIPID, ANEU, CMP, GFR #### [address] [address] Glucose [Mass/Vol] 85 mg/dL Normal 70-105 [facility] ([place]) Comment on above: Performed By: #### A DIFF, CBC, LIPID, ANEU, CMP, GFR #### [address] [address] Potassium [Moles/Vol] 4.6 mmol/L Normal 3.5-5.1 [facility] ([place]) Comment on above: Performed By: #### A DIFF, CBC, LIPID, ANEU, CMP, GFR #### [address] [address] Sodium [Moles/Vol] 138 mmol/L Normal 136-145 [facility]) Comment on above: Performed By: #### A DIFF, CBC, LIPID, ANEU, CMP, GFR #### [address] [address] Total Protein 6.6 G/dL Normal 6.4-8.2 [facility]) Comment on above: Performed By: #### A DIFF, CBC, LIPID, ANEU, CMP, GFR #### [address] [address] Urea nitrogen [Mass/Vol] 15 mg/dL Normal 7-18 [facility]) Comment on above: Performed By: #### A DIFF, CBC, LIPID, ANEU, CMP, GFR #### [address] [address] LABORATORYOrdered By: SYSTEM SYSTEM on 02-28-2023 Albumin BCP dye [Mass/Vol] 3.6 G/dL Invalid Interpretation Code 3.5 - 5.0 G/dL AO ADM SS Albumin/Globulin [Mass ratio] 1.2 {ratio} Invalid Interpretation Code 1.1 - 2.5 ratio AO ADM SS ALP [Catalytic activity/Vol] 64 U/L Invalid Interpretation Code 40 - 135 U/L AO ADM SS ALT With P-5'-P [Catalytic activity/Vol] 18 U/L Invalid Interpretation Code 14 - 59 U/L AO ADM SS AST With P-5'-P [Catalytic activity/Vol] 13 U/L Invalid Interpretation Code 10 - 40 U/L AO ADM SS Basophil, Absolute 0.0 103/mcL Invalid Interpretation Code 0.0 - 0.2 10^3/mcL AO Workflow SS Basophils/100 WBC (Bld) 0.9 % Invalid Interpretation Code 0.0 - 2.5 % AO Workflow SS Bilirubin [Mass/Vol] 0.8 mg/dL Invalid Interpretation Code 0.2 - 1.0 mg/dL AO ADM SS Comment on above: Interpretive Data: U se of this assay is not recommended for patients undergoing treatment with eltrombopag due to the potential for falsely elevated results. Calcium [Mass/Vol] 9.0 mg/dL Invalid Interpretation Code 8.4 - 10.2 mg/dL AO ADM SS Chloride [Moles/Vol] 104 mmol/L Invalid Interpretation Code 98 - 107 mmol/L AO ADM SS CO2 [Moles/Vol] 26 mmol/L Invalid Interpretation Code 22 - 29 mmol/L AO ADM SS Creatinine [Mass/Vol] 0.68 mg/dL Invalid Interpretation Code 0.55 - 1.02 mg/dL AO ADM SS Electrolyte Balance 8.0 mEq/L Invalid Interpretation Code 4.0 - 15.0 mEq/L AO ADM SS Eosinophil, Absolute 0.1 103/mcL Invalid Interpretation Code 0.0 - 0.4 10^3/mcL AO Workflow SS Eosinophils/100 WBC (Bld) 1.5 % Invalid Interpretation Code 0.0 - 7.0 % AO Workflow SS Erythrocyte distribution width (RBC) [Ratio] 12.8 % Invalid Interpretation Code 11.5 - 14.5 % AO Workflow SS GFR/1.73 sq M.predicted among blacks MDRD (S/P/Bld) [Vol rate/Area] 108 ml/min/1.73sqm Invalid Interpretation Code AO Chemistry S Comment on above: Interpretive Data: GFR Population mean for , Non- Americans Ages 20-29 = 116 mL/min/1.73 sq.m. Ages 30-39 = 107 mL/min/1.73 sq.m. Ages 40-49 = 99 mL/min/1.73 sq.m. Ages 50-59 = 93 mL/min/1.73 sq.m. Ages 60-69 = 85 mL/min/1.73 sq.m. Ages 70+ = 75 mL/min/1.73 sq.m. Chronic Kidney Disease: Less than 60 mL/min/1.73 square meters End Stage Renal Disease: Less than 15 mL/min/1.73 square meters GFR/1.73 sq M.predicted among non-blacks MDRD (S/P/Bld) [Vol rate/Area] 89 ml/min/1.73sqm Invalid Interpretation Code AO Chemistry S Comment on above: Interpretive Data: GFR Population mean for , Non- Americans Ages 20-29 = 116 mL/min/1.73 sq.m. Ages 30-39 = 107 mL/min/1.73 sq.m. Ages 40-49 = 99 mL/min/1.73 sq.m. Ages 50-59 = 93 mL/min/1.73 sq.m. Ages 60-69 = 85 mL/min/1.73 sq.m. Ages 70+ = 75 mL/min/1.73 sq.m. Chronic Kidney Disease: Less than 60 mL/min/1.73 square meters End Stage Renal Disease: Less than 15 mL/min/1.73 square meters Globulin 3.0 G/dL Invalid Interpretation Code AO ADM SS Glucose [Mass/Vol] 85 mg/dL Invalid Interpretation Code 70 - 105 mg/dL AO ADM SS Hematocrit (Bld) [Volume fraction] 40.3 % Invalid Interpretation Code 37.0 - 47.0 % AO Workflow SS Hemoglobin (Bld) [Mass/Vol] 13.6 G/dL Invalid Interpretation Code 12.0 - 16.0 G/dL AO Workflow SS Lymphocyte, Absolute 1.8 103/mcL Invalid Interpretation Code 0.8 - 3.9 10^3/mcL AO Workflow SS Lymphocytes/100 WBC (Bld) 33.7 % Invalid Interpretation Code 10.0 - 50.0 % AO Workflow SS MCH (RBC) [Entitic mass] 29.8 pg Invalid Interpretation Code 27.0 - 31.2 pg AO Workflow SS MCHC 33.7 G/dL Invalid Interpretation Code 33.0 - 37.0 G/dL AO Workflow SS MCV (RBC) [Entitic vol] 88.5 fL Invalid Interpretation Code 80.0 - 94.0 fL AO Workflow SS Monocyte, Absolute 0.7 103/mcL Invalid Interpretation Code 0.2 - 1.0 10^3/mcL AO Workflow SS Monocytes/100 WBC (Bld) 13.0 % Invalid Interpretation Code 1.7 - 13.0 % AO Workflow SS Neutrophil, Absolute 2.7 103/mcL Invalid Interpretation Code 2.9 - 6.2 10^3/mcL AO Workflow SS Neutrophils/100 WBC (Bld) 50.9 % Invalid Interpretation Code 37.0 - 80.0 % AO Workflow SS Platelet mean volume (Bld) [Entitic vol] 7.6 fL Invalid Interpretation Code 7.4 - 10.4 fL AO Workflow SS Platelets (Bld) [#/Vol] 237 103/mcL Invalid Interpretation Code 130 - 400 10^3/mcL AO Workflow SS Potassium [Moles/Vol] 4.6 mmol/L Invalid Interpretation Code 3.5 - 5.1 mmol/L AO ADM SS Protein [Mass/Vol] 6.6 G/dL Invalid Interpretation Code 6.4 - 8.2 G/dL AO ADM SS RBC (Bld) [#/Vol] 4.56 106/mcL Invalid Interpretation Code 4.20 - 5.40 10^6/mcL AO Workflow SS Sodium [Moles/Vol] 138 mmol/L Invalid Interpretation Code 136 - 145 mmol/L AO ADM SS Urea nitrogen [Mass/Vol] 15 mg/dL Invalid Interpretation Code 7 - 18 mg/dL AO ADM SS Urea nitrogen/Creatinine [Mass ratio] 22 ratio Invalid Interpretation Code 7 - 27 ratio AO ADM SS WBC (Bld) [#/Vol] 5.2 103/mcL Invalid Interpretation Code 4.6 - 10.8 10^3/mcL AO Workflow SS LABORATORYOrdered By: Argentina Rhoades on 02-28-2023 Cholesterol [Mass/Vol] 183 mg/dL Invalid Interpretation Code 0 - 200 mg/dL AO ADM SS Comment on above: Interpretive Data: C holesterol Reference Interval: Less than 200 Desirable 200-239 Borderline high risk 240 and above High risk Cholesterol in HDL [Mass/Vol] 94 mg/dL Invalid Interpretation Code 40 - 60 mg/dL AO ADM SS Cholesterol in LDL [Mass/Vol] 76 mg/dL Invalid Interpretation Code 0 - 130 mg/dL AO ADM SS Triglyceride [Mass/Vol] 66 mg/dL Invalid Interpretation Code 0 - 150 mg/dL AO ADM SS Comment on above: Interpretive Data: T riglyceride Reference Interval: Less than 150 Normal 150-199 Borderline high risk 200-499 High risk 500 or higher Very high risk LIPIDon 02-28-2023 Cholesterol [Mass/Vol] 183 mg/dL Normal 0-200 [facility] ([place]) Comment on above: Result Comment: Chol esterol Reference Interval: Less than 200 Desirable 200-239 Borderline high risk 240 and above High risk Performed By: #### A DIFF, CBC, LIPID, ANEU, CMP, GFR #### [address] [place], [place] [address] Cholesterol in HDL [Mass/Vol] 94 mg/dL High 40-60 [facility] ([place]) Comment on above: Performed By: #### A DIFF, CBC, LIPID, ANEU, CMP, GFR #### [address] [place], [place] [address] Cholesterol in LDL [Mass/Vol] 76 mg/dL Normal 0-130 [facility] ([place]) Comment on above: Performed By: #### A DIFF, CBC, LIPID, ANEU, CMP, GFR #### [address] [place], [place] [address] Triglyceride [Mass/Vol] 66 mg/dL Normal 0-150 [facility] ([place]) Comment on above: Result Comment: Trig lyceride Reference Interval: Less than 150 Normal 150-199 Borderline high risk 200-499 High risk 500 or higher Very high risk Performed By: #### A DIFF, CBC, LIPID, ANEU, CMP, GFR #### [address] [address] LABORATORYOrdered By: Jethro Marquez on 09-07-2022 Albumin DL <= 20 mg/L (U) [Mass/Vol] 1218 mcg/dL Invalid Interpretation Code AO ADM SS Albumin/Creatinine DL <= 20 mg/L (U) [Mass ratio] 52 mcg/mg Invalid Interpretation Code 0 - 30 mcg/mg AO ADM SS Creatinine (U) [Mass/Vol] 23.6 mg/dL Invalid Interpretation Code 28.0 - 117.0 mg/dL AO ADM SS No Panel Informationon 03-28 Culture Urine <10,000 cfu/ml. No Significant growth. Sensitivity not indicated. [facility] LABORATORYOrdered By: Jethro Marquez on 02-13-2022 Albumin BCP dye [Mass/Vol] 3.7 G/dL Invalid Interpretation Code 3.5 - 5.0 G/dL AO ADM SS Albumin/Globulin [Mass ratio] 1.2 {ratio} Invalid Interpretation Code 1.1 - 2.5 ratio AO ADM SS ALP [Catalytic activity/Vol] 62 U/L Invalid Interpretation Code 40 - 135 U/L AO ADM SS ALT With P-5'-P [Catalytic activity/Vol] 19 U/L Invalid Interpretation Code 14 - 59 U/L AO ADM SS AST With P-5'-P [Catalytic activity/Vol] 18 U/L Invalid Interpretation Code 10 - 40 U/L AO ADM SS Basophil, Absolute 0.1 103/mcL Invalid Interpretation Code 0.0 - 0.2 10^3/mcL AO Workflow SS Basophils/100 WBC (Bld) 1.3 % Invalid Interpretation Code 0.0 - 2.5 % AO Workflow SS Bilirubin [Mass/Vol] 0.7 mg/dL Invalid Interpretation Code 0.2 - 1.0 mg/dL AO ADM SS Calcium [Mass/Vol] 9.1 mg/dL Invalid Interpretation Code 8.4 - 10.2 mg/dL AO ADM SS Chloride [Moles/Vol] 105 mmol/L Invalid Interpretation Code 98 - 107 mmol/L AO ADM SS Cholesterol [Mass/Vol] 183 mg/dL Invalid Interpretation Code 0 - 200 mg/dL AO ADM SS Cholesterol in HDL [Mass/Vol] 96 mg/dL Invalid Interpretation Code 40 - 60 mg/dL AO ADM SS Cholesterol in LDL [Mass/Vol] 76 mg/dL Invalid Interpretation Code 0 - 130 mg/dL AO ADM SS CO2 [Moles/Vol] 28 mmol/L Invalid Interpretation Code 22 - 29 mmol/L AO ADM SS Creatinine [Mass/Vol] 0.61 mg/dL Invalid Interpretation Code 0.55 - 1.02 mg/dL AO ADM SS Electrolyte Balance 8.0 mEq/L Invalid Interpretation Code 4.0 - 15.0 mEq/L AO ADM SS Eosinophil, Absolute 0.1 103/mcL Invalid Interpretation Code 0.0 - 0.4 10^3/mcL AO Workflow SS Eosinophils/100 WBC (Bld) 2.1 % Invalid Interpretation Code 0.0 - 7.0 % AO Workflow SS Erythrocyte distribution width (RBC) [Ratio] 12.8 % Invalid Interpretation Code 11.5 - 14.5 % AO Workflow SS Globulin 3.0 G/dL Invalid Interpretation Code AO ADM SS Glucose [Mass/Vol] 86 mg/dL Invalid Interpretation Code 70 - 105 mg/dL AO ADM SS Hematocrit (Bld) [Volume fraction] 39.0 % Invalid Interpretation Code 37.0 - 47.0 % AO Workflow SS Hemoglobin (Bld) [Mass/Vol] 13.6 G/dL Invalid Interpretation Code 12.0 - 16.0 G/dL AO Workflow SS Lymphocyte, Absolute 1.8 103/mcL Invalid Interpretation Code 0.8 - 3.9 10^3/mcL AO Workflow SS Lymphocytes/100 WBC (Bld) 30.5 % Invalid Interpretation Code 10.0 - 50.0 % AO Workflow SS MCH (RBC) [Entitic mass] 30.8 pg Invalid Interpretation Code 27.0 - 31.2 pg AO Workflow SS MCHC 34.8 G/dL Invalid Interpretation Code 33.0 - 37.0 G/dL AO Workflow SS MCV (RBC) [Entitic vol] 88.4 fL Invalid Interpretation Code 80.0 - 94.0 fL AO Workflow SS Monocyte, Absolute 0.7 103/mcL Invalid Interpretation Code 0.2 - 1.0 10^3/mcL AO Workflow SS Monocytes/100 WBC (Bld) 12.7 % Invalid Interpretation Code 1.7 - 13.0 % AO Workflow SS Neutrophil, Absolute 3.1 103/mcL Invalid Interpretation Code 2.9 - 6.2 10^3/mcL AO Workflow SS Neutrophils/100 WBC (Bld) 53.4 % Invalid Interpretation Code 37.0 - 80.0 % AO Workflow SS Platelet mean volume (Bld) [Entitic vol] 7.7 fL Invalid Interpretation Code 7.4 - 10.4 fL AO Workflow SS Platelets (Bld) [#/Vol] 254 103/mcL Invalid Interpretation Code 130 - 400 10^3/mcL AO Workflow SS Potassium [Moles/Vol] 4.1 mmol/L Invalid Interpretation Code 3.5 - 5.1 mmol/L AO ADM SS Protein [Mass/Vol] 6.7 G/dL Invalid Interpretation Code 6.4 - 8.2 G/dL AO ADM SS RBC (Bld) [#/Vol] 4.41 106/mcL Invalid Interpretation Code 4.20 - 5.40 10^6/mcL AO Workflow SS Sodium [Moles/Vol] 141 mmol/L Invalid Interpretation Code 136 - 145 mmol/L AO ADM SS Triglyceride [Mass/Vol] 57 mg/dL Invalid Interpretation Code 0 - 150 mg/dL AO ADM SS Urea nitrogen [Mass/Vol] 18 mg/dL Invalid Interpretation Code 7 - 18 mg/dL AO ADM SS Urea nitrogen/Creatinine [Mass ratio] 30 ratio Invalid Interpretation Code 7 - 27 ratio AO ADM SS WBC 5.9 103/mcL Invalid Interpretation Code 4.6 - 10.8 10^3/mcL AO Workflow SS LABORATORYOrdered By: SYSTEM SYSTEM on 02-13-2022 GFR 123 ml/min/1.73sqm Invalid Interpretation Code AO Chemistry S GFR Non- 101 ml/min/1.73sqm Inva lid Interpretation Code AO Chemistry S Culture, urine Bacteria identified Cx Nom (U) Culture exhibits no growth. [facility] Work Phone: Vital Signs Date Time Vital Sign Value Performing Clinician Faci lity 04-16-2025 10:15-0400 Body temperature 98.4 [degF] Rand Baltes [employer] Work Phone: [facility] 04-16-2025 10:15-0400 Diastolic blood pressure 92 mm[Hg] Rand Baltes [employer] Work Phone: [facility] 04-16-2025 10:15-0400 Heart rate 66 /min Rand Baltes [employer] Work Phone: [facility] 04-16-2025 10:15-0400 Respiratory rate 16 /min Rand Baltes [employer] Work Phone: [facility] 04-16-2025 10:15-0400 SaO2% (BldA) [Mass fraction] 94 % Rand Baltes [employer] Work Phone: [facility] 04-16-2025 10:15-0400 Systolic blood pressure 115 mm[Hg] Rand Baltes [employer] Work Phone: [facility] 04-16-2025 08:00-0400 Body height 160.02 cm Rand Baltes [employer] Work Phone: [facility] 04-16-2025 08:00-0400 Body mass index (BMI) [Ratio] 27.3 kg/m2 Rand Baltes [employer] Work Phone: [facility] 04-16-2025 08:00-0400 Body weight 70 kg Rand Baltes [employer] Work Phone: [facility] 04-09-2025 18:32-0400 Body temperature 97.2 [degF] Rand Baltes [employer] Work Phone: [facility] 04-09-2025 18:32-0400 Diastolic blood pressure 78 mm[Hg] Rand Baltes [employer] Work Phone: [facility] 04-09-2025 18:32-0400 Heart rate 80 /min Rand Baltes [employer] Work Phone: [facility] 04-09-2025 18:32-0400 Respiratory rate 16 /min Rand Baltes [employer] Work Phone: [facility] 04-09-2025 18:32-0400 SaO2% (BldA) [Mass fraction] 99 % Rand Baltes [employer] Work Phone: [facility] 04-09-2025 18:32-0400 Systolic blood pressure 126 mm[Hg] Rand Baltes [employer] Work Phone: [facility] 04-09-2025 11:33-0400 Body mass index (BMI) [Ratio] 27.6 kg/m2 Rand Baltes [employer] Work Phone: [facility] 04-09-2025 11:33-0400 Body weight 70.7 kg Rand Baltes [employer] Work Phone: [facility] 04-08-2025 08:48-0400 Body mass index (BMI) [Ratio] 26.9 kg/m2 Rand Baltes [employer] Work Phone: [facility] 04-08-2025 08:48-0400 Body weight 68.94 kg Rand Baltes SECURITY INCIDENT HANDLER-C Work Phone: [facility] 04-08-2025 08:48-0400 Diastolic blood pressure 98 mm[Hg] Rand Baltes SECURITY INCIDENT HANDLER-C Work Phone: [facility] 04-08-2025 08:48-0400 Heart rate 65 /min Rand Baltes SECURITY INCIDENT HANDLER-C Work Phone: [facility] 04-08-2025 08:48-0400 Systolic blood pressure 142 mm[Hg] Rand Baltes SECURITY INCIDENT HANDLER-C Work Phone: [facility] 03-16-2025 13:17-0400 Body height 160.02 cm Rand Baltes SECURITY INCIDENT HANDLER-C Work Phone: [facility] 03-16-2025 13:17-0400 Body mass index (BMI) [Ratio] 26.9 kg/m2 Rand Baltes SECURITY INCIDENT HANDLER-C Work Phone: [facility] 03-16-2025 13:17-0400 Body weight 68.94 kg Rand Baltes SECURITY INCIDENT HANDLER-C Work Phone: [facility] 03-16-2025 13:17-0400 Diastolic blood pressure 82 mm[Hg] Rand Baltes SECURITY INCIDENT HANDLER-C Work Phone: [facility] 03-16-2025 13:17-0400 Heart rate 73 /min Rand Baltes SECURITY INCIDENT HANDLER-C Work Phone: [facility] 03-16-2025 13:17-0400 Systolic blood pressure 135 mm[Hg] Rand Baltes SECURITY INCIDENT HANDLER-C Work Phone: [facility] 09-23-2022 22:07-0400 Body height 160.02 cm [facility] 09-23-2022 22:07-0400 Body temperature 98.5 [degF] [facility] 09-23-2022 22:07-0400 Diastolic blood pressure 101 mm[Hg] [facility] 09-23-2022 22:07-0400 Heart rate 111 /min [facility] 09-23-2022 22:07-0400 Respiratory rate 18 /min [facility] 09-23-2022 22:07-0400 SaO2% (BldA) [Mass fraction] 98 % [facility] 09-23-2022 22:07-0400 Systolic blood pressure 160 mm[Hg] [facility] Encounters Encounter Date Encounter Type Care Provider Facility Start: 04-29-2025 End: 04-29-2025 ambulatory Marialuisa Gottlieb [facility] Start: 04-16-2025 ambulatory Marialuisa [facility] Facility: [facility] Start: 04-16-2025 End: 04-16-2025 ambulatory [facility] Facility:[facility] Start: 04-09-2025 End: 04-09-2025 Emergency department patient visit Dr. Rimma Robb DO -Emergency Department Work Phone: Start: 04-08-2025 End: 04-08-[address] Marialuisa Gottlieb MD -[facility] Work Phone: Start: 04-08-2025 End: 04-08-2025 ambulatory Rand Baltes SECURITY INCIDENT HANDLER-C Work Phone: -[facility] Start: 03-27-2025 End: 03-27-[address] Marialuisa Gottlieb MD -[facility] Work Phone: Start: 03-27-2025 End: 03-27-2025 ambulatory Marialuisa Gottlieb Facility:[facility] Start: 03-16-2025 End: 03-16-[address] Marialuisa Gottlieb MD -[facility] Work Phone: Start: 03-16-2025 End: 03-16-2025 ambulatory Rand Baltes SECURITY INCIDENT HANDLER-C Work Phone: -[facility] Start: 03-06-2025 End: 03-06-2025 ambulatory RAND BALTES HARDWARE DESIGNER-BOX SEALING MACHINE FEEDER Facility:[facility] Start: 03-06-2025 End: 03-06-2025 Patient encounter procedure RAND BALTES HARDWARE DESIGNER-BOX SEALING MACHINE FEEDER [facility] Start: 06-30-2024 End: 06-30-2024 ambulatory Rand Baltes SECURITY INCIDENT HANDLER Facility:[facility] Start: 05-27-2024 End: 05-27-2024 ambulatory RAND BALTES HARDWARE DESIGNER-BOX SEALING MACHINE FEEDER Facility:[facility] Start: 05-27-2024 End: 05-27-2024 Patient encounter procedure RAND BALTES HARDWARE DESIGNER-BOX SEALING MACHINE FEEDER [facility] Start: 03-04-2024 End: 03-08-2024 Outreach Lab RAND BARBOZA HARDWARE DESIGNER-BOX SEALING MACHINE FEEDER [facility] Start: 09-18-2023 ambulatory RAND BARBOZA HARDWARE DESIGNER-BOX SEALING MACHINE FEEDER Fa cility:[facility] Start: 09-18-2023 End: 09-22-2023 Outreach Lab RAND BARBOZA HARDWARE DESIGNER-BOX SEALING MACHINE FEEDER [facility] Start: 06-27-2023 End: 06-27-2023 ambulatory [facility] Work Phone: Start: 06-27-2023 End: 06-27-2023 Patient encounter procedure [facility] Work Phone: Start: 06-14-2023 End: 06-15-2023 ambulatory RAND BARBOZA HARDWARE DESIGNER-BOX SEALING MACHINE FEEDER Facility:[facility] Start: 06-14-2023 End: 06-14-2023 Patient encounter procedure RAND BARBOZA HARDWARE DESIGNER-BOX SEALING MACHINE FEEDER [facility] Start: 06-05-2023 ambulatory RAND BARBOZA HARDWARE DESIGNER-BOX SEALING MACHINE FEEDER Fa cility:[facility] Start: 03-13-2023 End: 03-18-2023 ambulatory RAND BARBOZA HARDWARE DESIGNER-BOX SEALING MACHINE FEEDER Facility:[facility] Start: 02-28-2023 End: 03-01-2023 ambulatory RAND BARBOZA HARDWARE DESIGNER-BOX SEALING MACHINE FEEDER Facility:[facility] Start: 02-28-2023 End: 02-28-2023 Patient encounter procedure RAND BARBOZA HARDWARE DESIGNER-BOX SEALING MACHINE FEEDER [facility] Start: 02-28-2023 End: 02-28-2023 Well adult monitoring check done RAND BARBOZA HARDWARE DESIGNER-BOX SEALING MACHINE FEEDER [facility] Start: 09-23-2022 End: 09-24-2022 Emergency department patient visit [facility]Emergency Department Start: 09-07-2022 End: 09-11-2022 Outreach Lab RAND BARBOZA HARDWARE DESIGNER-BOX SEALING MACHINE FEEDER [facility] Start: 06-22-2022 End: 06-22-2022 ambulatory [facility] Work Phone: Start: 06-22-2022 End: 06-22-2022 Patient encounter procedure [facility]patient [facility] Start: 04-06-2022 End: 04-06-2022 ambulatory [facility] Work Phone: Start: 04-06-2022 End: 04-06-2022 Patient encounter procedure [facility]-Laboratory, Specimen Start: 03-29-2022 End: 03-29-2022 Patient encounter procedure RAND BARBOZA HARDWARE DESIGNER-BOX SEALING MACHINE FEEDER [facility] Start: 03-28-2022 End: 04-01-2022 Outreach Lab RAND BARBOZA HARDWARE DESIGNER-BOX SEALING MACHINE FEEDER [facility] Start: 02-13-2022 End: 02-13-2022 Patient encounter procedure RAND BARBOZA HARDWARE DESIGNER-BOX SEALING MACHINE FEEDER [facility] Procedures Date Procedure Procedure Detail Performing Clinician Start: 04-09-2025 CT of thorax, abdome n and pelvis with contrast Rand Barboza SECURITY INCIDENT HANDLER-C Work Phone: Start: 04-09-2025 Estimated creatinine clearance Rand Barboza SECURITY INCIDENT HANDLER-C Work Phone: Start: 03-27-2025 CT of abdomen and pe lvis without contrast Rand Barboza SECURITY INCIDENT HANDLER-C Work Phone: Start: 06-27-2023 Screening mammography Start: 06-22-2022 Screening mammography Start: 08-14-2018 Colonoscopy normal (finding) RAND BARBOZA HARDWARE DESIGNER-BOX SEALING MACHINE FEEDER Comment on above: [facility]; [facility]; Dr. Dorothy Oakes, repeat 10 yrs Start: 10-22-2017 Mammography RAND Wall HARDWARE DESIGNER-BOX SEALING MACHINE FEEDER Comment on above: [facility]; [place] Start: 05-19-2010 Hysterectomy RAND Wall HARDWARE DESIGNER-BOX SEALING MACHINE FEEDER Appendectomy RAND BARBOZA APR N-BOX SEALING MACHINE FEEDER Back structure, excl uding neck (body structure) RAND BARBOZA HARDWARE DESIGNER-BOX SEALING MACHINE FEEDER Comment on above: Back surgery Cholecystectomy RAND BARBOZA HARDWARE DESIGNER-BOX SEALING MACHINE FEEDER Endometriosis (morph ologic abnormality) RAND BARBOZA HARDWARE DESIGNER-BOX SEALING MACHINE FEEDER Comment on above: surgery Lithotripsy RAND BARBOZA APR N-BOX SEALING MACHINE FEEDER Comment on above: w/laser. Also had st ent and had it removed. Urine culture Plan of Treatment Date Care Activity Detail Author Start: 04-16-2025 Anes lithotrp xtrcorp shock wave w/o water bath ANESTH KIDNEY STONE DESTRUCT [facility] Start: 04-16-2025 Extracorporeal shockwave lithotripsy of calculus of kidney FRAGMENTING OF KIDNEY STONE [facility] Start: 04-16-2025 Patient discharge [facility] Start: 04-16-2025 Non-patient / Non-visit Non-patient / Non-visit -[facility] Start: 04-16-2025 End: 04-16-2025 Admission to same day surgery center [facility] Start: 04-09-2025 [facility] Start: 04-09-[address] [facility] [address] Abdomen and Pelvi s WO contrast [facility] Patient Education [facility] Work Phone: Patient referral [facility] Work Phone: Immunizations Immunization Date Immunization Notes Care Provider Noemi braxton 06-09-2021 SARS-CoV-2 mRNA (tozinameran) vaccine RAND BARBOZA HARDWARE DESIGNER-BOX SEALING MACHINE FEEDER [facility] [place] 09-23-2020 SARS-CoV-2 mRNA (tozinameran) vaccine RAND BARBOZA HARDWARE DESIGNER-BOX SEALING MACHINE FEEDER [facility] [place] 09-02-2020 SARS-CoV-2 mRNA (tozinameran) vaccine RAND BARBOZA HARDWARE DESIGNER-BOX SEALING MACHINE FEEDER [facility] [place] Comment on above: Result Comment: 2020: [id number] Payers Date Payer Category Payer Self-pay [id number] 2023 Unknown [id number] 2022 Private Health Insurance [id number] 1965 Unknown [id number] 2.16.8 [id number] 1965 Unknown [id number] 2.16.8 [id number] 1965 Unknown [id number] 2.16.8 [id number] 1965 Unknown [id number] 2.16.8 [id number] 1965 Unknown [id number] 2.16.8 [id number] 1965 Unknown [id number] 2.16. [id number] 1965 Unknown [id number] 2.16.8 [id number] Unknown [id number] 2.16.8 [id number] Unknown [id number] 2.16.8 [id number] Unknown [id number] 2.16.8 [id number] Unknown [id number] 2.16.8 [id number] Unknown [id number] 2.16.8 [id number] Unknown [id number] 2.16.8 [id number] Unknown [id number] 2.16.8 [id number] Unknown [id number] 2.16.8 [id number] Unknown [id number] 2.16.8 [id number] Social History Date Type Detail Facility Start: 01-28-2019 End: 04-10-2025 Tobacco smoking status Ex-smoker (finding) [facility] Comment on above: Quit in 1999 Start: 1965 Sex Assigned At Female A [facility] Start: 01-06-2019 End: 09-24-2022 Tobacco smoking status MNIS Unknown if ever smoked [facility] Start: 01-05-2019 With Family [facility] Start: 01-05-2019 Cigarettes [facility] Start: 12-11-2018 Sex Female (finding) [facility] Sex [facility] Medical Equipment Procedure Code Equipment Code Equipment Origin al Text Equipment Identifier Dates Cystoscopic insertion of stent STENT,6x24 PERCUFLEX FDA Start: 01-05-2019 Cystoscopic insertion of stent STENT,6x24 PERCUFLEX FDA Start: 01-05-2019 Cystoscopic insertion of stent STENT,6x24 PERCUFLEX FDA Start: 01-05-2019 Cystoscopic insertion of stent STENT,6x24 PERCUFLEX FDA Start: 01-05-2019 Cystoscopic insertion of stent STENT,6x24 PERCUFLEX FDA Start: 01-05-2019 Cystoscopic insertion of stent STENT,6x24 PERCUFLEX FDA Start: 01-05-2019 STENT,URETERAL PIGTAIL [id number] FDA Start: 01-08-2019 STENT,URETERAL PIGTAIL [id number] FDA Start: 01-08-2019 STENT,URETERAL PIGTAIL [id number] FDA Start: 01-08-2019 STENT,URETERAL PIGTAIL [id number] FDA Start: 01-08-2019 STENT,URETERAL PIGTAIL [id number] FDA Start: 01-08-2019 STENT,URETERAL PIGTAIL [id number] FDA Start: 01-08-2019 Goals Date Patient Goal Desired Activity /State Mental Status Date Assessment Result Facility 04-16-2025 Cognitive function Voice/Name [facility] Work Phone: 04-09-2025 Cognitive function Level Of Consciousness Awake [facility] Work Phone: Clinical Notes 03-29-2022 to 04-16-2025 Note Date & Type Note Facility 04-16-2025 Note [facility] Medical Records Department [address] [place] [id number] History Physical Exam 04/16/25 0849 MR#: [id number] Acct: [id number] Name: MARTÍNEZ VINCENT Rep #: [id number] : 1965 59 From: Marialuisa Gottlieb MD PCP: RUSS Rapp Status:[facility] Location: [place] [address] History and Physical Date of Admission: 04/16/25 Date of Service: 04/08/25 MR#: [id number] Acct: [id number] Name: MARTÍNEZ VINCENT Rep #: [id number] : 1965 Provider: Dr. Marialuisa Gottlieb MD Age/Sex: 59/F [place] [facility] Status: Signed Intake Vital Signs 03/16/2513:17 04/08/2508:48 Height 5 ft 3 in 5 ft 3 in Weight: 152 lb 152 lb BMI 26.9 26.9 BP 135/82 H 142/98 H Pulse 73 65 Intake Visit Reasons: LITHOTRIPSY/PRE-OP Chief Complaint: preoperation vitis with urine and consent Industrial Custodian Required: No Accompanied by: self Is patient in pain?: Yes (back aching) Pain scale (1-10): 2 Allergies Penicillins Allergy (Verified 04/08/25 08:48) Rash Medications ???Medication ???Instructions ???Recorded ???Confirmed ???Type zolpidem 10 mg tablet (Ambien) 10 mg PO QHS sleep. 10/08/17 04/08/25 History lorazepam 0.5 mg tablet (Ativan) 0.5 mg PO QDAY PRN 03/16/25 04/08/25 History biotin 10,000 mcg capsule mcg PO 04/08/25 04/08/25 History escitalopram oxalate 20 mg tablet 20 mg PO QDAY 04/08/25 04/08/25 History losartan 50 mg tablet 50 mg PO QDAY 04/08/25 04/08/25 History magnesium 250 mg tablet 250 mg PO QDAY 04/08/25 04/08/25 History oxycodone-acetaminophen 5 mg-325 1 tab PO TID PRN pain 3 days #10 04/08/25 04/08/25 Rx mg tablet (Percocet) tabs Nurse's Note: overall achy and tired. lower back pain. [facility] Medical History Stress incontinence Neuropathy Hives Hypertension Chronic headaches Gallstones Emotional problems UTI (urinary tract infection) Back problem Arthritis Allergies Surgical History H/O: hysterectomy History of appendectomy S/P cholecystectomy Previous back surgery Family History Other Anxiety Hypertension Social History Smoking Status: Former smoker alcohol intake: current details: occasionally substance use type: does not use what type of physical activity do you participate in: walking and other frequency: daily do you feel safe at home: Yes HPI [facility] Urology Chief Complaint: preoperation vitis with urine and consent Details: MARTÍNEZ VINCENT, is a 59 F. The patient is here for preoperative history and physical prior to left renal extracorporal shockwave lithotripsy. There are no new symptoms since the last visit aside from fatigue. She is taking ibuprofen for left sided aching, I requested she change to Tylenol for this week and avoid aspirin. The procedure, recovery and expectations were explained. The risks, benefits and alternatives were discussed, including but not limited to, the risks of anesthesia, bleeding, infection, injury, pain and the need for further intervention. We have discussed the risk of exposure to and/or potential harm posed by the COVID-19 virus with having a surgery/procedure at this time. A joint decision was made at this time to proceed with the scheduled surgery/procedure as indicated on the consent form. ROS Const Constitutional: Positive for fatigue; No chills, fever(s), headache(s), night sweats, weakness, weight change, abnormal sleep pattern or change in appetite Eyes Eyes: No change in vision ENT ENT: No headache(s) or dry mouth Resp Respiratory: No cough, chest congestion, shortness of breath or wheezing Cardio Cardiology: Positive for other (No chest pain.); No shortness of breath, irregular heart rhythm or lightheadedness Gastro GI: Positive for other (No nausea.); No abdominal pain, change in bowel habits, constipation, diarrhea or vomiting Musc Musculoskeletal: Positive for back pain (left side); No abnormal gait Skin Skin: No yellowing of the eye, lesions, itchy eyes, rash or skin ulcer Neuro Neurology: No abnormal gait, confusion, dizziness, weakness, headache(s) or memory loss Psych Psychiatric: No abnormal sleep pattern, No change in appetite, No confusion and No memory loss Endo Endocrine: Positive for fatigue; No increased thirst/drinking or weight change Aller/Imm Allergy/Immunologic: No itchy eyes or wheezing Chuckie/Lymp Hematologic/Lymphatic: No easy bleeding, easy bruising or enlarged lymph nodes Exam (more content not included)... [facility] 04-08-2025 Progress note [facility] 03-16-2025 Evaluation note Diagnosis Onset Date Resolution Flank pain acute February 12:42pm Stress incontinence acute Septe mber 2024 12:42pm Kidney stones chronic February 172024 12:42pm Flank pain acute April 08, 2025 8:36am Stress incontinence acute Octob er 2024 8:36am Kidney stones chronic March 8:36am [facility] Work Phone: 1(671) 325-548009-29-2025 [facility] [address], [address] [place] [address] OFFICE VISIT Date of Service: 03/16/25 MR#: [id number] Acct: [id number] Name: MARTÍNEZ VINCENT Rep #: [id number] : 1965 Provider: Dr. Terese Gottlieb MD Age/Sex: 59/F Location[facility] Status: Signed Intake Vital Signs 09/23/22 22:07 03/16/25 13:17 Height 5 ft 3 in 5 ft 3 in Weight: 152 lb BMI 26.9 BP 135/82 H Pulse 73 Intake Visit Reasons: Kidney stone Chief Complaint: new patient- kidney stone Industrial Custodian Required: No Accompanied by: Is patient in pain?: No Allergies Penicillins Allergy (Verified 03/16/25 13:13) Rash Medications ?Medication ?Instructions ?Recorded ?Confirmed ?Type zolpidem 10 mg tablet (Ambien) 10 mg PO QHS sleep. 03/16/25 History escitalopram oxalate 10 mg tablet 10 mg PO DAILY anxie ty 01/05/19 03/16/25 History lorazepam 0.5 mg tablet (Ativan) 0.5 mg PO QDAY PRN 03/16/25 History Nurse's Note: bladder scan PVR some discomfort with stones no pain PFSH Medical History Stress incontinence Neuropathy Hives Hypertension Chronic headaches Gallstones Emotional problems UTI (urinary tract infection) Back problem Arthritis Allergies Surgical History H/O: hysterectomy History of appendectomy S/P cholecystectomy Previous back surgery Family History Other Anxiety Hypertension Social History Smoking Status: Former smoker alcohol intake: current details: occasionally substance use type: does not use what type of physical activity do you participate in: walking and other frequency: daily do you feel safe at home: Yes HPI [facility] Chief Complaint: new patient- kidney stone Details: MARTÍNEZ VINCENT, is a 59 F. She is here for evaluation and management of kidney stones. She has passed 2 stones on her own, and she has had an ESWL as well as ureteroscopy. She is going to [place] in May and is worried about having a stone pass. She had a 24hr UA stone protocol many years ago. It showed that her water intakewas low. She has been having bilateral heavy sensation in her back recently similar to when she has stones. This has been for the last 2-3 weeks. She is getting a feeling of fatigue and aching, temps are below 100. Tylenol helps. Her aching ismostly on the left with occasional sharp sensation on the right. She is voiding 5-10 times during the day, 0-1 times at night. There is no urge incontinence where she cannot make it to the bathroom. There is mild stress incontinence with cough, laugh, sneeze, lifting, etc. She is using 1 liner pads in 24 hours. She has had no urinary tract infections in the last year. She has not had visible blood in her urine. She is not sexually active. There is no sensation of vaginal bulging. She has the following issues with chronic bowel function: struggles with constipation. She uses Miralax. There is no pelvic pain, sometimes discomfort. She has a remote history of smoking. There is no history of blood clots or easy bleeding. There is not a family history of female cancer. ROS Const Constitutional: Positive for chills, fatigue and fever(s) (low grade to 100.); No headache(s), night sweats, weakness, weight change, abnormal sleep pattern orchange in appetite Eyes Eyes: No change in vision ENT ENT: No headache(s) or dry mouth Resp Respiratory: No cough, chest congestion, shortness of breath or wheezing Cardio Cardiology: Positive for other (No chest pain.); No shortness of breath, irregular heart rhythm or lightheadedness Gastro GI: Positive for constipation (managed with Miralax.) and other (No nausea.); No abdominal pain, change in bowel habits, diarrhea or vomiting Musc Musculoskeletal: No abnormal gait Skin Skin: No yellowing of the eye, lesions, itchy eyes, rash or skin ulcer Neuro Neurology: No abnormal gait, confusion, dizziness, weakness, headache(s) or memory loss Psych Psychiatric: No abnormal sleep pattern, No change in appetite, No confusion and No memory loss Endo Endocrine: Positive for fatigue; No increased thirst/drinking or weight change Aller/Imm Allergy/Immunologic: No itchy eyes or wheezing Chuckie/Lymp Hematologic/Lymphatic: No easy bleeding, easy bruising or enlarged lymph nodes Exam Const General: cooperative, healthy appearing, comfortable and no acute distress [facility] Head: normocephalic and atraumatic Ears: hearing grossly normal bilaterally and external ears normal Nose: external nose normal Eyes General: appearance normal, both eyes and all related structures Neck Neck: normal visual inspection and trachea midline Chest Chest palpation & inspection: normal inspection of the chest Resp Effort & Inspection: normal respiratory effort, able to speak in complete sentences and symmetric chest movement Cardio Rate: regular rate GI Inspection: normal to inspection Palpation: soft and nontender General: No CVA tenderness Skin General: no rashes or lesions noted Neuro General: patient alert, patient awake, patient oriented x3 and CN's II-XI intactbilaterally Extrem General: normal to inspection Psych Appearance: grossly normal and well kempt Mental Status: mental status grossly normal Results POC UA Auto w/o Microscopy Office Urine Color Last Edit by Fátima Hall on 03/16/25 13:20 Office Urine Clarity Last Edit by Fátima Hall on 03/16/25 13:20 Office Urine Glucose Negative Last Edit by Fátima Hall on 03/16/25 13:2 0 Office Urine Ketones Negative Last Edit by Fátima Hall on 03/16/25 13:2 0 Office Urine Bilirubin Small (1+) Last Edit by Fátima Hall on 03/16/25 13:20 Office Urine Urobilinogen 0.2 mg/dL Last Edit by Fátima Hall on 5 13:20 Off Ur Spec [place] 1.010 Last Edit by Fátima Hall on 03/16/25 13:20 Office Urine pH 7 Last Edit by Fátima Hall on 03/16/25 13:20 Office Urine Protein Trace Last Edit by Fátima Hall on 03/16/25 13:20 Office Urine Blood Negative Last Edit by Fátima Hall on 03/16/25 13:20 Office Urine Blood Hemolyzed Negative Last Edit by Fátima Hall on 03/16 13:20 Office Urine Nitrate Negative Last Edit by Fátima Hall on 03/16/25 13:2 0 Off Ur Leukocytes Negatve Last Edit by Fátima Hall on 03/16/25 13:20 Supplemental Info renal ultrasound with bilateral stones, non-obstructing with the largest measured at 6mm. Last CT was 3 years ago. Coding Level of Care Code Off vis,new,level 3 Diagnoses Kidney stones N20.0 Flank pain R10.9 Stress incontinence N39.3 Assessment and Plan Assessment and Plan (1) Kidney stones: Status: Chronic (2) Flank pain: Status: Acute (3) Stress incontinence: Status: Acute Orders: Orders POC UA Auto w/o Microscopy Today N20.0 - Calculus of kidney Abdomen/Pelvis without Cont Today N20.0 - Calculus of kidney Plan CT flank plan to repeat 24hr UA after stones are managed she does not tolerate stents well Plan Details Follow Up: after CT 03/16/252054 > Date _ Marialuisa Gottlieb MD Cosigner Signature: Date (if applicable) CC: RUSS Barboza ~ [facility]09-19-2025 Note* Exam Date Time Procedure Performing Provider Status 03/06/25 2:22 PM US Renal KEVIN LUDWIG DO; Auth (Verified) [id number] ORIGINAL EXAMINATION: ULTRASOUND OF THE KIDNEYS 03/06/2025 2:25 pm COMPARISON: CT abdomen pelvis 03/29/2022 HISTORY: ORDERING SYSTEM PROVIDED HISTORY: Reason for Exam: LEFT FLANK PAIN All images are recorded and archived. FINDINGS: Right and left kidneys measure 12.7 x 4.9 x 5.8 cm, and 11.3 x 6.1 x 5.0 cm respectively. Multiple punctate echogenic stones affect the mid to lower pole left kidney, the largest is seen in the lower pole measuring 6 mm. These are unchanged from prior CT scan. Urinary bladder contains 160 mL of urine. There is no bladder mass or stone. Postvoid volume of the bladder is 6.4 mL. IMPRESSION: 1. Multiple nonobstructing left renal calculi. 2. No acute finding. Interpreted by: Kevin Ludwig DO Preliminary Report By: Kevin Ludwig DO Electronically signed By Kevin Ludwig DO Dictated Date: 03/06/2025 4:01:54 PM Prelim Date: 03/06/2025 4:05:13 PM Sign Date: 03/06/2025 4:05:13 PM Ordering Provider: [facility]12-28-2023 Note ORIGINAL NM MYOCARDIAL SPECT STRESS/REST CLINICAL STATEMENT: shortness of breath on exertion TECHNIQUE: Lexiscan dose:0.4 mg Radiopharmaceutical (stress): Tc-99m Sestamibi Dose:31.9 mCi Radiopharmaceutical (rest): Tc-99m Sestamibi Dose:10.4 mCi SPECT acquisition and processing Reconstruction and reorientation of SPECT images into short axis, vertical and horizontal long axisplanes Quantitative LVEF assessment COMPARISON:None REPORT: Poststress myocardial [...] By: Duane Olivas Preliminary Report By: Duane Olivas Electronically Signed By: Duane Olivas Dictated Date: 06/14/2023 5:16:23 PM Prelim Date: 06/14/2023 5:16:23 PM Sign Date: 06/14/2023 5:18:35 PM Ordering Provider:[facility]10-12-2022 Note ORIGINAL EXAMINATION: CT OF THE ABDOMEN [...] Sign Date: 03/29/2022 3:31:26 PM Ordering Provider: [facility]10-12-2022 Note ORIGINAL EXAMINATION: CT OF THE ABDOMEN [...] Date: 03/29/2022 3:31:26 PM [facility]ing [facility] Future Appointments Appointment Date:03/14/2022 09:30:00 AM Scheduled Provider:RAND BARBOZA Location:[facility] Appointment Type:PC OV Controlled Medication [facility] Evaluation + Plan note Future Appointments Appointment Date:06/01/2022 09:30:00 AM Scheduled Provider:RAND BARBOZA Location:[facility] Appointment Type:PC OV Future Scheduled Tests Radiology* CT Urogram 03/28/[address] [facility] Evaluation + Plan note Future Appointments Appointment Date:12/14/2022 10:30:00 AM Scheduled Provider:ARND BARBOZA Location:[facility] Appointment Type:PC Wellness Annual Future Scheduled Tests Radiology* CT Urogram 03/28/[address] [facility] Evaluation + Plan note Future Appointments Appointment Date:03/13/2023 10:30:00 AM Scheduled Provider:RAND BARBOZA Location:[facility] Appointment Type:PC OV Future Scheduled Tests Radiology* CT Urogram 03/28/[address] [facility] Evaluation + Plan note Future Appointments Appointment Date:06/20/2023 09:00:00 AM Scheduled Provider:RAND BARBOZA Location:[facility] Appointment Type:PC OV [facility] Evaluation + Plan note Future Appointments Appointment Date:12/11/2023 09:00:00 AM Scheduled Provider:RAND BARBOZA Location:[facility] Appointment Type:PC OV [facility] Evaluation + Plan note Future Appointments Appointment Date:05/27/2024 11:00:00 AM Scheduled Provider:RAND BARBOZA Location:[facility] Appointment Type:PC OV Future Scheduled Tests Laboratory* Complete Blood Count 03/04/24 * Lipid Profile 03/04/24 * Complete Metabolic Panel 03/04/24 Radiology* MA Mammo Screening Bilateral w/ Andres 03/04/[address] [facility] Evaluation + Plan note Future Appointments Appointment Date:08/19/2024 11:00:00 AM Scheduled Provider:RAND BARBOZA Location:[facility] Appointment Type:PC OV Future Scheduled Tests Radiology* MA Mammo Screening Bilateral w/ Andres 03/04/[address] [facility] Evaluation + Plan note Future Appointments Appointment Date:05/22/2025 11:00:00 AM Scheduled Provider:RAND BARBOZA Location:[facility] Appointment Type:PC Wellness Annual Future Scheduled Tests Laboratory* Lipase Level 05/26/25 * Complete Blood Count 05/26/25 * Complete Metabolic Panel 05/26/[address] [facility] evaluation noteNo assessment information available [facility] Work Phone: evaluation note* Diagnosis Onset Date Resolution Status Admit Date Flank pain acute February 12:42pm Stress incontinence acute Septe mber 2024 12:42pm Kidney stones chronic February 172024 12:42pm [facility] Work Phone: Hospital course Narrative No data available for this section [facility] Hospital Discharge instructions No data available for this section [facility] Progress note No data available for this section [facility] Provnhcx note Author Marialuisa Gottlieb [facility] Note Date/Time March 16, 2025 1:36pm [facility] [address] [place] [address], [address] [place] [address] OFFICE VISIT Date of Service: 03/16/25 MR#: [id number] Acct: [id number] Name: MARTÍNEZ VINCENT Rep #: [id number] : 1965 Provider: Dr. Terese Gottlieb MD Age/Sex: 59/F [facility] Status: Signed Intake Vital Signs 09/23/22 22:07 03/16/25 13:17 Height 5 ft 3 in 5 ft 3 in Weight: 152 lb BMI 26.9 BP 135/82 H Pulse 73 Intake Visit Reasons: Kidney stone Chief Complaint: new patient- kidney stone Industrial Custodian Required: No Accompanied by: Is patient in pain?: No Allergies Penicillins Allergy (Verified 03/16/25 13:13) Rash Medications ?Medication ?Instructions ?Recorded ?Confirmed ?Type zolpidem 10 mg tablet (Ambien) 10 mg PO QHS sleep. 03/16/25 History escitalopram oxalate 10 mg tablet 10 mg PO DAILY anxie ty 01/05/19 03/16/25 History lorazepam 0.5 mg tablet (Ativan) 0.5 mg PO QDAY PRN 03/16/25 History Nurse's Note: bladder scan PVR some discomfort with stones no pain PFSH Medical History Stress incontinence Neuropathy Hives Hypertension Chronic headaches Gallstones Emotional problems UTI (urinary tract infection) Back problem Arthritis Allergies Surgical History H/O: hysterectomy History of appendectomy S/P cholecystectomy Previous back surgery Family History Other Anxiety Hypertension Social History Smoking Status: Former smoker alcohol intake: current details: occasionally substance use type: does not use what type of physical activity do you participate in: walking and other frequency: daily do you feel safe at home: Yes HPI HPI Urology Chief Complaint: new patient- kidney stone Details: MARTÍNEZ VINCENT, is a 59 F. She is here for evaluation and management of kidney stones. She has passed 2 stones on her own, and she has had an ESWL as well as ureteroscopy. She is going to [place] in May and is worried about having a stone pass. She had a 24hr UA stone protocol many years ago. It showed that her water intakewas low. She has been having bilateral heavy sensation in her back recently similar to when she has stones. This has been for the last 2-3 weeks. She is getting a feeling of fatigue and aching, temps are below 100. Tylenol helps. Her aching ismostly on the left with occasional sharp sensation on the right. She is voiding 5-10 times during the day, 0-1 times at night. There is no urge incontinence where she cannot make it to the bathroom. There is mild stress incontinence with cough, laugh, sneeze, lifting, etc. She is using 1 liner pads in 24 hours. She has had no urinary tract infections in the last year. She has not had visible blood in her urine. She is not sexually active. There is no sensation of vaginal bulging. She has the following issues with chronic bowel function: struggles with constipation. She uses Miralax. There is no pelvic pain, sometimes discomfort. She has a remote history of smoking. There is no history of blood clots or easy bleeding. There is not a family history of female cancer. ROS Const Constitutional: Positive for chills, fatigue and fever(s) (low grade to 100.); No headache(s), night sweats, weakness, weight change, abnormal sleep pattern orchange in appetite Eyes Eyes: No change in vision ENT ENT: No headache(s) or dry mouth Resp Respiratory: No cough, chest congestion, shortness of breath or wheezing Cardio Cardiology: Positive for other (No chest pain.); No shortness of breath, irregular heart rhythm or lightheadedness Gastro GI: Positive for constipation (managed with Miralax.) and other (No nausea.); No abdominal pain, change in bowel habits, diarrhea or vomiting Musc Musculoskeletal: No abnormal gait Skin Skin: No yellowing of the eye, lesions, itchy eyes, rash or skin ulcer Neuro Neurology: No abnormal gait, confusion, dizziness, weakness, headache(s) or memory loss Psych Psychiatric: No abnormal sleep pattern, No change in appetite, No confusion and No memory loss Endo Endocrine: Positive for fatigue; No increased thirst/drinking or weight change Aller/Imm Allergy/Immunologic: No itchy eyes or wheezing Chuckie/Lymp Hematologic/Lymphatic: No easy bleeding, easy bruising or enlarged lymph nodes Exam Const General: cooperative, healthy appearing, comfortable and no acute distress [facility] Head: normocephalic and atraumatic Ears: hearing grossly normal bilaterally and external ears normal Nose: external nose normal Eyes General: appearance normal, both eyes and all related structures Neck Neck: normal visual inspection and trachea midline Chest Chest palpation & inspection: normal inspection of the chest Resp Effort & Inspection: normal respiratory effort, able to speak in complete sentences and symmetric chest movement Cardio Rate: regular rate GI Inspection: normal to inspection Palpation: soft and nontender General: No CVA tenderness Skin General: no rashes or lesions noted Neuro General: patient alert, patient awake, patient oriented x3 and CN's II-XI intactbilaterally Extrem General: normal to inspection Psych Appearance: grossly normal and well kempt Mental Status: mental status grossly normal Results POC UA Auto w/o Microscopy Office Urine Color Last Edit by Fátima Hall on 03/16/25 13:20 Office Urine Clarity Last Edit by Fátima Hall on 03/16/25 13:20 Office Urine Glucose Negative Last Edit by Fátima Hall on 03/16/25 13:2 0 Office Urine Ketones Negative Last Edit by Fátima Hall on 03/16/25 13:2 0 Office Urine Bilirubin Small (1+) Last Edit by Fátima Hall on 03/16/25 13:20 Office Urine Urobilinogen 0.2 mg/dL Last Edit by Fátima Hall on 5 13:20 Off Ur Spec [place] 1.010 Last Edit by Fátima Hall on 03/16/25 13:20 Office Urine pH 7 Last Edit by Fátima Hall on 03/16/25 13:20 Office Urine Protein Trace Last Edit by Fátima Hall on 03/16/25 13:20 Office Urine Blood Negative Last Edit by Fátima Hall on 03/16/25 13:20 Office Urine Blood Hemolyzed Negative Last Edit by Fátima Hall on 03/16 13:20 Office Urine Nitrate Negative Last Edit by Fátima Hall on 03/16/25 13:2 0 Off Ur Leukocytes Negatve Last Edit by Fátima Hall on 03/16/25 13:20 Supplemental Info renal ultrasound with bilateral stones, non-obstructing with the largest measured at 6mm. Last CT was 3 years ago. Coding Level of Care Code Off vis,new,level 3 Diagnoses Kidney stones N20.0 Flank pain R10.9 Stress incontinence N39.3 Assessment and Plan Assessment and Plan (1) Kidney stones: Status: Chronic (2) Flank pain: Status: Acute (3) Stress incontinence: Status: Acute Orders: Orders POC UA Auto w/o Microscopy Today N20.0 - Calculus of kidney Abdomen/Pelvis without Cont Today N20.0 - Calculus of kidney Plan CT flank plan to repeat 24hr UA after stones are managed she does not tolerate stents well Plan Details Follow Up: after CT 03/16/252054 <Electronically signed by Marialuisa Gottlieb MD> Date _ Marialuisa Gottlieb MD Cosigner Signature: Date (if applicable) CC: RUSS Barboza ~ [facility] Work Phone: Progrhvt note Author Marialuisa Gottlieb [facility] Note Date/Time April 08, 2025 1 0:19am [facility] [address], [address] [place] [address] OFFICE VISIT Date of Service: 04/08/25 MR#: [id number] Acct: [id number] Name: MARTÍNEZ VINCENT Rep #: [id number] : 1965 Provider: Dr. Terese Gottlieb MD Age/Sex: 59/F Location[facility] Status: Signed Intake Vital Signs 03/16/25 13:17 04/08/25 08:48 Height 5 ft 3 in 5 ft 3 in Weight: 152 lb 152 lb BMI 26.9 26.9 BP 135/82 H 142/98 H Pulse 73 65 Intake Visit Reasons: LITHOTRIPSY/PRE-OP Chief Complaint: preoperation vitis with urine and consent Industrial Custodian Required: No Accompanied by: self Is patient in pain?: Yes (back aching) Pain scale (1-10): 2 Allergies Penicillins Allergy (Verified 04/08/25 08:48) Rash Medications ?Medication ?Instructions ?Recorded ?Confirmed ?Type zolpidem 10 mg tablet (Ambien) 10 mg PO QHS sleep. 04/08/25 History lorazepam 0.5 mg tablet (Ativan) 0.5 mg PO QDAY PRN 04/08/25 History biotin 10,000 mcg capsule mcg PO 04/08/25 04/08/25 His tory escitalopram oxalate 20 mg tablet 20 mg PO QDAY 04/08/25 History losartan 50 mg tablet 50 mg PO QDAY 04/08/2504/08 History magnesium 250 mg tablet 250 mg PO QDAY 04/08/2503/19 History oxycodone-acetaminophen 5 mg-325 1 tab PO TID PRN pain 3 days #10 04/08/25 04/08/25 Rx mg tablet (Percocet) tabs Nurse's Note: overall achy and tired. lower back pain. PFSH Medical History Stress incontinence Neuropathy Hives Hypertension Chronic headaches Gallstones Emotional problems UTI (urinary tract infection) Back problem Arthritis Allergies Surgical History H/O: hysterectomy History of appendectomy S/P cholecystectomy Previous back surgery Family History Other Anxiety Hypertension Social History Smoking Status: Former smoker alcohol intake: current details: occasionally substance use type: does not use what type of physical activity do you participate in: walking and other frequency: daily do you feel safe at home: Yes HPI HPI Urology Chief Complaint: preoperation vitis with urine and consent Details: MARTÍNEZ VINCENT, is a 59 F. The patient is here for preoperative history and physical prior to left renal extracorporal shockwave lithotripsy. There are no new symptoms since the last visit aside from fatigue. She is takingibuprofen for left sided aching, I requested she change to Tylenol for this weekand avoid aspirin. The procedure, recovery and expectations were explained. The risks, benefits andalternatives were discussed, including but not limited to, the risks of anesthesia, bleeding, infection, injury, pain and the need for further intervention. We have discussed the risk of exposure to and/or potential harm posed by the COVID-19 virus with having a surgery/procedure at this time. A joint decision was made at this time to proceed with the scheduled surgery/procedure as indicated on the consent form. ROS Const Constitutional: Positive for fatigue; No chills, fever(s), headache(s), night sweats, weakness, weight change, abnormal sleep pattern or change in appetite Eyes Eyes: No change in vision ENT ENT: No headache(s) or dry mouth Resp Respiratory: No cough, chest congestion, shortness of breath or wheezing Cardio Cardiology: Positive for other (No chest pain.); No shortness of breath, irregular heart rhythm or lightheadedness Gastro GI: Positive for other (No nausea.); No abdominal pain, change in bowel habits, constipation, diarrhea or vomiting Musc Musculoskeletal: Positive for back pain (left side); No abnormal gait Skin Skin: No yellowing of the eye, lesions, itchy eyes, rash or skin ulcer Neuro Neurology: No abnormal gait, confusion, dizziness, weakness, headache(s) or memory loss Psych Psychiatric: No abnormal sleep pattern, No change in appetite, No confusion and No memory loss Endo Endocrine: Positive for fatigue; No increased thirst/drinking or weight change Aller/Imm Allergy/Immunologic: No itchy eyes or wheezing Chuckie/Lymp Hematologic/Lymphatic: No easy bleeding, easy bruising or enlarged lymph nodes Exam Const General: cooperative, healthy appearing, comfortable and no acute distress [facility] Head: normocephalic and atraumatic Ears: hearing grossly normal bilaterally and external ears normal Nose: external nose normal Eyes General: appearance normal, both eyes and all related structures Neck Neck: normal visual inspection and trachea midline Chest Chest palpation & inspection: normal inspection of the chest Resp Effort & Inspection: normal respiratory effort, able to speak in complete sentences and symmetric chest movement Cardio Rate: regular rate GI Inspection: normal to inspection Palpation: soft and nontender General: No CVA tenderness Skin General: no rashes or lesions noted Neuro General: patient alert, patient awake, patient oriented x3 and CN's II-XI intactbilaterally Extrem General: normal to inspection Psych Appearance: grossly normal and well kempt Mental Status: mental status grossly normal Results POC UA Auto w/o Microscopy Office Urine Color Last Edit by Fátima Hall on 04/08/25 08:52 Office Urine Clarity Last Edit by Fátima Hall on 04/08/25 08:52 Office Urine Glucose Negative Last Edit by Fátima Hall on 04/08/25 08:5 2 Office Urine Ketones Negative Last Edit by Fátima Hall on 04/08/25 08:5 2 Office Urine Bilirubin Negative Last Edit by Fátima Hall on 04/08/25 08 :52 Office Urine Urobilinogen 0.2 mg/dL Last Edit by Fátima Hall on 5 08:52 Off Ur Spec [place] 1.010 Last Edit by Fátima Hall on 04/08/25 08:52 Office Urine pH 7 Last Edit by Fátima Hall on 04/08/25 08:52 Office Urine Protein Trace Last Edit by Fátima Hall on 04/08/25 08:52 Office Urine Blood Negative Last Edit by Fátima Hall on 04/08/25 08:52 Office Urine Blood Hemolyzed Negative Last Edit by Fátima Hall on 04/08 08:52 Office Urine Nitrate Negative Last Edit by Fátima Hall on 04/08/25 08:5 2 Off Ur Leukocytes Negatve Last Edit by Fátima Hall on 04/08/25 08:52 Coding Level of Care Code Off vis,est,level 4 Diagnoses Kidney stones N20.0 Flank pain R10.9 Stress incontinence N39.3 Assessment and Plan Assessment and Plan (1) Kidney stones: Status: Chronic (2) Flank pain: Status: Acute (3) Stress incontinence: Status: Acute Orders: Orders POC UA Auto w/o Microscopy Today N20.0 - Calculus of kidney Basic Metabolic Profile (BMP) Today N20.0 - Calculus of kidney CBC W/Diff, Automated Today N20.0 - Calculus of kidney Medications: New oxycodone-acetaminophen 5-325 mg (Percocet) 1 TAB PO TID PRN 10 tabs 0RF pain 3 days N20.0 - Calculus of kidney Plan Urine culture today Proceed with intervention as scheduled Plan for 24-hour urinalysis after stone resolution 04/08/25 0919 <Electronically signed by Marialuisa Gottlieb MD> Date _ Marialuisa Gottlieb MD Cosigner Signature: Date (if applicable) CC: ~ [facility] Work Phone: Reason for referral (narrative)No reason for referral information availableBlPomer[facility] Work Phone: Advance Directives No Advanced Directives Records Found Advance Directive Response Recorded Date/ Time Living Will No January 06, 2019 2:15pm Power of Husbandry Person No January 06 9 2:15pm Advance Directive Response Recorded Date/ Time Living Will No January 06, 2019 1:15pm Power of Husbandry Person No January 06 9 1:15pm Advance Directive Response Recorded Date/ Time Living Will No September 23, 2022 11:02pm Power of Husbandry Person No September 23 11:02pm Advance Directive Response Recorded Date/ Time Living Will No September 23, 2022 10:02pm Power of Husbandry Person No September 23 10:02pm Advance Directive Response Recorded Date/ Time Do you have a Healthcare Power of Husbandry Person? No April 10, 2025 11:47am Do you have a Healthcare Power of Husbandry Person? No April 09, 2025 11:32am Chief Complaint and Reason for Visit Chief Complaint SCREENING Chief Complaint SCREENING mva Chief Complaint Admit Date Kidney stone March 16, 2025 12:42pm Reason for Visit Admit Date Flank pain March 16, 2025 12:42pm Stress incontinence March 16, 2025 12:42pm Kidney stones March 16, 2025 12:42pm Chief Complaint Admit Date Kidney stone March 16, 2025 12:42pm KIDNEY STONE March 27, 2025 6 :45pm LITHOTRIPSY/PRE-OP April 08, 2025 8 :36am BACK PAIN April 09, 2025 1 1:32am EXTRACORPOREAL SHOCK WAVE LITHOTRIP Octo 2024 7:30am EXTRACORPOREAL SHOCK WAVE LITHOTRIP Octo 2024 8:49am Reason for Visit Admit Date Flank pain March 16, 2025 12:42pm Stress incontinence March 16, 2025 12:42pm Kidney stones March 16, 2025 12:42pm Flank pain April 08, 2025 8 :36am Stress incontinence April 08, 2025 8 :36am Kidney stones April 08, 2025 8 :36am Summary Purpose Family History No Family History Records Found Additional Source Comments Care Team (unrecognized sect ion and content) Care Team Personnel Name: RAND BARBOZA APRN-BOX SEALING MACHINE FEEDER Position: P4 Advanced Practice Nurse Member Role: Primary Care Physician Address: Address: [address] [place] [address]- [place] Name: MEENA VOSS MD Position: [facility] Physician Address: Address: [address] [facility] [address] [facility] [place] [address]- [place] Care Team Related Persons Name: AQUILINO VINCENT Address: Home [address] [place], [place] [id number] Care Team Personnel Name: RAND BARBOZA Position: P4 Advanced Practice Nurse Med Service: Active Provider Member Role: Primary Care Physician Address: Address: [address] [place] [id number] Name: MEENA VOSS MD Position: CV Physician Med Service: Active Provider Member Role: Neurologist Address: Address: [address] [place] [address] Care Team Related Persons Name: AQUILINO VINCENT Address: Home [address] [place], [place] [id number] Care Team Personnel Name: RAND BARBOZA Position: P4 Advanced Practice Nurse Med Service: Active Provider Member Role: Primary Care Physician Address: Address: [address] [place] [id number] Name: MEENA VOSS MD Position: CV Physician Med Service: Active Provider Member Role: Neurologist Address: Address: [address] [place] [address] Care Team Related Persons Name: AQUILINO VINCENT Address: Home [address] [place], [place] [id number] Goals (unrecognized section and content) Goals may be documented in a n alternate section Patient Care team informatio n (unrecognized section and content) Team Status: Active Member Role Status Dates Dr. Moisés Gomez , Family Provider Active Rand Barboza SECURITY INCIDENT HANDLER, SECURITY INCIDENT HANDLER-C Primary Care Provider Active Team Status: Inactive Member Role Status Dates Rand Barboza SECURITY INCIDENT HANDLER, SECURITY INCIDENT HANDLER-C Primary Care Provider, Attending Provider Active Team Status: Inactive Member Role Status Dates Rand Barboza SECURITY INCIDENT HANDLER, SECURITY INCIDENT HANDLER-C Primary Care Provider Active Dr. Johnnie Ruiz MD Emergency Provider Active Team Status: Inactive Member Role Status Dates Rand Barboza SECURITY INCIDENT HANDLER, SECURITY INCIDENT HANDLER-C Primary Care Provid er, Attending Provider, Referring Provider Active Team Status: Active Member Role/Relationship Status Dates Rand Barboza SECURITY INCIDENT HANDLER, SECURITY INCIDENT HANDLER-C Primary care physician Active Team Status: Inactive Member Role/Relationship Status Dates Rand Barboza SECURITY INCIDENT HANDLER, SECURITY INCIDENT HANDLER-C Primary care physician Active Start: March 16, 2025 End: March 16, 2025 Rand Barboza SECURITY INCIDENT HANDLER, SECURITY INCIDENT HANDLER-C Referring Provider Active S tart: March 16, 2025 End: March 16, 2025 Dr. Marialuisa Gottlieb MD Attending physician Active Start: March 16, 2025 End: March 16, 2025 Team Status: Inactive Member Role/Relationship Status Dates Rand Barboza SECURITY INCIDENT HANDLER, SECURITY INCIDENT HANDLER-C Primary care physician Active Start: March 27, 2025 End: March 27, 2025 Dr. Marialuisa Gottlieb MD Attending physician Active Start: March 27, 2025 End: March 27, 2025 Dr. Marialuisa Gottlieb MD Referring Provider Active Start: March 27, 2025 End: March 27, 2025 Team Status: Inactive Member Role/Relationship Status Dates Rand Barboza SECURITY INCIDENT HANDLER, SECURITY INCIDENT HANDLER-C Primary care physician Active Start: April 08, 2025 End: April 08, 2025 Rand Barboza SECURITY INCIDENT HANDLER, SECURITY INCIDENT HANDLER-C Referring Provider Active S tart: April 08, 2025 End: April 08, 2025 Dr. Marialuisa Gottlieb MD Attending physician Active Start: April 08, 2025 End: April 08, 2025 Team Status: Inactive Member Role/Relationship Status Dates Rand Barboza SECURITY INCIDENT HANDLER, SECURITY INCIDENT HANDLER-C Primary care physician Active Start: April 09, 2025 End: April 09, 2025 Dr. Rimma Robb DO Attending physician Active Start: April 09, 2025 End: April 09, 2025 Dr. Rimma Robb DO Emergency Depart ent Physician Active Start: April 09, 2025 End: April 09, 2025 Team Status: Inactive Member Role/Relationship Status Dates Rand Barboza SECURITY INCIDENT HANDLER, SECURITY INCIDENT HANDLER-C Primary care physician Active Start: April 16, 2025 End: April 16, 2025 Dr. Marialuisa Gottlieb MD Attending physician Active Start: April 16, 2025 End: April 16, 2025 Dr. Marialuisa Gottlieb MD Referring Provider Active Start: April 16, 2025 End: April 16, 2025 Team Status: Active Member Role/Relationship Status Dates Rand Barboza SECURITY INCIDENT HANDLER, SECURITY INCIDENT HANDLER-C Primary care physician Active Start: April 16, 2025 Dr. Marialuisa Gottlieb MD Attending physician Active Start: April 16, 2025 Dr. Marialuisa Gottlieb MD Referring Provider Active Start: April 16, 2025 Dr. Marialuisa Gottlieb MD Nurse Practitioner Active Start: April 16, 2025 INFORMATION SOURCE (unrecogn ized section and content) DATE CREATED AUTHOR 09/19/2023 [facility] ([place]) DATE CREATED AUTHOR AUTHOR'S ORGANIZ ATION 03/08/2025 [facility] DATE CREATED AUTHOR AUTHOR'S ORGANIZ ATION 04/30/2025 [facility] FOR RECORDS PERTAINING TO PATIENTS WHO ARE [...] BE BASED ON THE PRIMARY CLINICAL RECORDS. [facility]. provides no warranty or guarantee of the accuracy or completeness of information in this document.
== END | disposition home or self-care (01) ==
LOC: CT 18:42
PROVIDERS: PCP Nurse Practitioner Primary Care; Referring Provider Urology; Visit Provider Urology
DX: N20.0 Calculus of kidney (principal); R10.9 Unspecified abdominal pain
CPT/HCPCS: 74176